=== PATIENT | male | born 1955 | race Caucasian/White ===

== ENCOUNTER 2016-12-25 21:12 | Inpatient (IN) | payer MEDICAID, OTHER ==
[~2016-12-25] VITALS: Ht 165.1 cm; Wt 78.0 kg
--- NOTE | 2016-12-25 22:42 | ERA ---
ER Documentation Chief Complaint Date/Time DATE: 12/25/16 TIME: 22:40 Chief Complaint family states pt not talking, gen body weakness since this am HPI Patient is a 61-year-old diabetic male who presents with sudden onset, constant , severe weakness to the right side of his arm and leg since 1130 this morning. He is also been unable to speak since that time. Prior to the event, he was complaining of numbness in his bilateral legs. There is no report of fever, vomiting, head trauma. The patient does not take blood thinners. ROS All systems reviewed and are negative except as per history of present illness. Medications Home Meds Unable to Obtain Active Prescriptions or Reported Meds Allergies Allergies: Coded Allergies: No Known Drug Allergies (Verified Allergy, Unknown, 12/25/16) PMhx/Soc Past medical history: Diabetes mellitus Past surgical history: None Social history: Denies tobacco or alcohol Medical and Surgical Hx: pt denies Surgical Hx Hx Psychiatric Problems: No Hx Miscellaneous Medical Probl: Yes (DIABETES) Hx Alcohol Use: No Hx Substance Use: No Hx Tobacco Use: No Smoking Status: Never smoker FmHx Family History: No coronary disease, No diabetes Physical Exam Vitals Vital Signs Date Time Temp Pulse Resp B/P Pulse Ox O2 Delivery O2 Flow Rate FiO2 12/26/16 00:39 57 12 139/86 99 Room Air 12/25/16 22:06 60 12 145/95 99 Room Air 12/25/16 21:43 98.4 68 20 144/83 97 Physical Exam Const: Alert, nonverbal Head: Atraumatic Eyes: Normal Conjunctiva, no pallor, no icterus ENT: Normal External Ears, Nose and Mouth. Neck: Full range of motion. No meningismus. Resp: Clear to auscultation bilaterally Cardio: Regular rate and rhythm, no murmurs Abd: Soft, non tender, non distended. Skin: No petechiae or rashes Back: No midline or flank tenderness Ext: No cyanosis, or edema Neur: Awake and alert, productive aphasia, follows commands, 2 out of 5 strength right arm and leg, no facial droop Psych: Unable to assess due to condition. Result Diagram: 12/25/16 2340 12/25/16 2340 Results 24 hrs Laboratory Tests Test 12/25/16 21:42 12/25/16 23:40 Bedside Glucose 150mg/dL White Blood Count 8.310^3/ul Red Blood Count 4.9410^6/ul Hemoglobin 15.7g/dl Hematocrit 45.1% Mean Corpuscular Volume 91.3fl Mean Corpuscular Hemoglobin 31.8pg Mean Corpuscular Hemoglobin Concent 34.8g/dl Red Cell Distribution Width 13.4% Platelet Count 26401^3/UL Mean Platelet Volume 10.4fl Neutrophils % 63.1% Lymphocytes % 30.5% Monocytes % 4.7% Eosinophils % 1.1% Basophils % 0.4% Neutrophils # 5.210^3/ul Lymphocytes # 2.510^3/ul Monocytes # 0.410^3/ul Eosinophils # 0.110^3/ul Basophils # 0.010^3/ul Nucleated Red Blood Cells # 0.010^3/ul Prothrombin Time 13.0Sec Prothrombin Time Ratio 1.0 INR International Normalized Ratio 0.98 Activated Partial Thromboplast Time 24.8Sec Sodium Level 147mmol/L Potassium Level 4.1mmol/L Chloride Level 103mmol/L Carbon Dioxide Level 28mmol/L Anion Gap 20 Blood Urea Nitrogen 15mg/dl Creatinine 0.72mg/dl Glucose Level 147mg/dl Hemoglobin A1c 8.6% Calcium Level 9.9mg/dl Total Bilirubin 0.8mg/dl Direct Bilirubin 0.00mg/dl Indirect Bilirubin 0.8mg/dl Aspartate Amino Transf (AST/SGOT) 32IU/L Alanine Aminotransferase (ALT/SGPT) 52IU/L Alkaline Phosphatase 93IU/L Troponin I < 0.012ng/ml Total Protein 7.8g/dl Albumin 4.2g/dl Globulin 3.60g/dl Albumin/Globulin Ratio 1.16 Current Medications Medications (Trade) Dose Ordered Sig/Margot Route PRN Reason Start Time Stop Time Status Last Admin Dose Admin Aspirin (Aspirin) 162 mg ONCE ONCE PO 12/25/16 23:30 12/25/16 23:31 DC 12/25/16 23:27 Ondansetron HCl (Zofran Inj) 4 mg ER BRIDGE PRN IV NAUSEA AND/OR VOMITING 12/26/16 01:00 12/27/16 00:59 Acetaminophen (Tylenol Tab) 650 mg ER BRIDGE PRN PO MILD PAIN/FEVER 12/26/16 01:00 7/22/17 00:59 Procedures/MDM EKG read by me: Time 2316, rate 58 Rhythm: Sinus bradycardia [place]: Normal Intervals: Normal ST-T waves: no ischemic changes Ectopy: No Q-waves: No Impression: No evidence of ischemia or arrhythmia MDM: Patient is a 61-year-old male who presents with acute onset of aphasia and right-sided arm and leg weakness. The patient presented outside of the window for consideration of TPA. Head CT was negative for intracranial bleed. The patient was more than 12 hours from onset of symptoms at the time initial workup was completed, and so was deemed not to be a potential candidate for intra-vascular treatment. The patient was given aspirin. The patient has history of diabetes. There is no evidence of cardiac arrhythmia. The patient will be admitted to the hospital for further workup of stroke, including vascular imaging and MRI. Departure Diagnosis: Primary Impression: Acute ischemic stroke Additional Impressions: Aphasia Right sided weakness Condition: Stable VANESSA LOOMIS MD Dec 25, 2016 22:42
--- NOTE | 2016-12-25 23:13 | RADRPT ---
PROCEDURE: XR Chest. CLINICAL INDICATION: Chest pain and stroke TECHNIQUE: AP Portable chest. COMPARISON: None available FINDINGS: The soft tissues and bones are remarkable for multiple EKG leads superimposed over chest wall. No f ocal infiltrates, masses or effusions are present. The heart size is borderline. The aorta and med iastinum are normal. A 7.5 mm left lower lobe pulmonary nodule is noted which is superimposed over the left posterior 9th rib and interposed between the left anterior sixth and seventh ribs. Recomme nd chest CT to further evaluate . No pleural effusions or pneumothorax is noted. IMPRESSION: 1. 7.5 mm left lower lobe pulmonary nodule. Recommend chest CT to further evaluate. 2. Borderline cardiomegaly RPTAT: HDC .Jessica Holder MD, Date Time Electronically viewed and signed by .Jessica Holder MD, on 12/25/2016 23:13 .C/
--- NOTE | 2016-12-25 23:17 | RADRPT ---
PROCEDURE: CT Head without. CLINICAL INDICATION: Code stroke. TECHNIQUE: The study was performed utilizing a multi-slice, multidetector CT scanner. Direct spira l 1 mm axial sections were obtained through the head without the use of intravenous contrast materia l. 1 or more of the following dose reduction techniques were utilized: Automated exposure control, adjustment of the mA and/or kV according to patient's size, iterative reconstruction technique. Co trevin and sagittal reformations were obtained. The images were reviewed on a PACS workstation. RADIATION DOSE: CTDIvol: 44.3 mGyDLP: 720.2 mGy-cm COMPARISON: No prior studies are available for comparison. FINDINGS: There is no intracranial hemorrhage, extra-axial fluid collection, mass lesion, midline shift or hyd rocephalus. There is mild prominence of the cerebral sulci, lateral and third ventricles. There is mild to moderate periventricular and subcortical white matter hypodensity, asymmetric to the anteri or left frontal lobe white matter. There is mild arteriosclerotic calcification of the parasellar i nternal carotid arteries. The cardenas-white matter differentiation is preserved. The basal cisterns a re patent. The midline structures are intact. The orbits, calvarium and extracranial soft tissues are normal in appearance. There are mild inflammatory changes of the bilateral ethmoid air cells. T he mastoid air cells and middle ear cavities are normally aerated. IMPRESSION: 1. Asymmetric white matter hypodensity involving the left anterior frontal lobe, as well as the lef t sub insular white matter, which is nonspecific. This may be related to asymmetric chronic microan giopathic changes, however underlying infarct is not excluded. MRI is recommended for further evalu ation. 2. No intracranial hemorrhage, extra-axial fluid collection, mass lesion or hydrocephalous. 3. Mild peripheral and central cerebral volume loss. The above findings were discussed with Patient's physician Ramo Potter by telephone on 12/25/2016 11:14:41 PM. RPTAT: HGAS .Derrick Griffith MD, MD Date Time Electronically viewed and signed by .Derrick Griffith MD, on 12/25/2016 23:17 .S/
[2016-12-25] MEDS ORDERED: ASPIRIN 81 MG TAB PO ONE (23:30)
[2016-12-25 23:57] LABS: ADD SCAN DIFF NO
[2016-12-26] VITALS (11 sets, daily range): BP systolic 134–156; BP diastolic 78–97; PULSE 50–61; RESP 18–21; Ht 165.1 cm; Wt 78.0 kg
[2016-12-26 00:02] LABS: BASOPHILS % 0.4 % (0.0-2.0); EOSINOPHILS # 0.1 10^3/ul (0.0-0.5); EOSINOPHILS % 1.1 % (0.0-7.0); HEMATOCRIT 45.1 % (42.0-52.0); HEMOGLOBIN 15.7 g/dl (14.0-18.0); LYMPHOCYTES # 2.5 10^3/ul (0.8-2.9); LYMPHOCYTES % 30.5 % (15.0-51.0); MEAN CORPUSCULAR HEMOGLOBIN 31.8 pg (29.0-33.0); MEAN CORPUSCULAR HGB CONC 34.8 g/dl (32.0-37.0); MEAN CORPUSCULAR VOLUME 91.3 fl (82.0-101.0); MEAN PLATELET VOLUME 10.4 fl (7.4-10.4); MONOCYTE # 0.4 10^3/ul (0.3-0.9); MONOCYTES % 4.7 % (0.0-11.0); NEUTROPHIL # 5.2 10^3/ul (1.6-7.5); NEUTROPHILS % 63.1 % (39.0-77.0); PLATELET COUNT 251 10^3/UL (140-415); RED BLOOD COUNT 4.94 10^6/ul (4.70-6.10); RED CELL DISTRIBUTION WIDTH 13.4 % (11.5-14.5); WHITE BLOOD COUNT 8.3 10^3/ul (4.8-10.8)
[2016-12-26 00:21] LABS: INR 0.98; PARTIAL THROMBOPLASTIN TIME 24.8 Sec (25.0-35.0)
[2016-12-26 00:30] LABS: ALANINE AMINOTRANSFERASE 52 IU/L (13-69); ALBUMIN 4.2 g/dl (3.3-4.9); ALBUMIN/GLOBULIN RATIO 1.16; ALKALINE PHOSPHATASE 93 IU/L (42-121); ANION GAP 20 (8-16); ASPARTATE AMINO TRANSFERASE 32 IU/L (15-46); BILIRUBIN,INDIRECT 0.8 mg/dl (0-1.1); BILIRUBIN,TOTAL 0.8 mg/dl (0.2-1.3); BLOOD UREA NITROGEN 15 mg/dl (7-20); CALCIUM 9.9 mg/dl (8.4-10.2); CARBON DIOXIDE 28 mmol/L (21-31); CHLORIDE 103 mmol/L (97-110); CREATININE 0.72 mg/dl (0.61-1.24); GLUCOSE 147 mg/dl (70-220); POTASSIUM 4.1 mmol/L (3.5-5.1); SODIUM 147 mmol/L (135-144); TOTAL PROTEIN 7.8 g/dl (6.1-8.1)
[2016-12-26 00:42] LABS: TROPONIN-I < 0.012 ng/ml (0.00-0.12)
[2016-12-26] MEDS ORDERED: ACETAMINOPHEN 325 MG TAB PO PRN (01:00)
[2016-12-26] MEDS ORDERED: ONDANSETRON 4 MG INJ IV PRN ×2 (01:00→03:30)
[2016-12-26] MEDS ORDERED: GLUCOSE GEL 15 GRAM TUBE PO PRN ×2 (06:00)
[2016-12-26] MEDS ORDERED: DEXTROSE 50% 50 ML SYRINGE IV PRN ×2 (06:00)
[2016-12-26] MEDS ORDERED: GLUCAGON 1 MG INJ IM PRN (06:00)
[2016-12-26] MEDS ORDERED: GLUCOSE GEL 15 GRAM TUBE BUCCAL PRN (06:00)
[2016-12-26 06:34] LABS: ADD SCAN DIFF NO
[2016-12-26 06:36] LABS: BASOPHILS % 0.4 % (0.0-2.0); EOSINOPHILS # 0.2 10^3/ul (0.0-0.5); EOSINOPHILS % 2.2 % (0.0-7.0); HEMATOCRIT 44.8 % (42.0-52.0); HEMOGLOBIN 15.4 g/dl (14.0-18.0); LYMPHOCYTES % 36.4 % (15.0-51.0); MEAN CORPUSCULAR HEMOGLOBIN 31.4 pg (29.0-33.0); MEAN CORPUSCULAR HGB CONC 34.4 g/dl (32.0-37.0); MEAN CORPUSCULAR VOLUME 91.4 fl (82.0-101.0); MEAN PLATELET VOLUME 10.3 fl (7.4-10.4); MONOCYTE # 0.5 10^3/ul (0.3-0.9); MONOCYTES % 5.9 % (0.0-11.0); NEUTROPHIL # 4.5 10^3/ul (1.6-7.5); PLATELET COUNT 232 10^3/UL (140-415); RED CELL DISTRIBUTION WIDTH 13.6 % (11.5-14.5); WHITE BLOOD COUNT 8.1 10^3/ul (4.8-10.8)
[2016-12-26 07:07] LABS: ALBUMIN/GLOBULIN RATIO 1.14; BILIRUBIN,INDIRECT 1.2 mg/dl (0-1.1); BILIRUBIN,TOTAL 1.2 mg/dl (0.2-1.3); CALCIUM 9.7 mg/dl (8.4-10.2); CHOL/HDL RATIO 6.2 RATIO; CREATININE 0.7 mg/dl (0.61-1.24); MAGNESIUM 2.1 mg/dl (1.7-2.5); PHOSPHORUS 3.5 mg/dl (2.5-4.9); POTASSIUM 3.9 mmol/L (3.5-5.1); TOTAL PROTEIN 7.5 g/dl (6.1-8.1)
--- NOTE | 2016-12-26 07:22 | HP ---
Date/Time of Note Date/Time of Note DATE: 12/26/16 TIME: 07:12 Assessment/Plan VTE Prophylaxis VTE Prophylaxis Intervention: heparin Lines/Catheters IV [facility] Saline Lock Assessment/Plan Assessment/Plan 1. Acute CVA -Patient is currently completely aphasic with right-sided deficit. Plan is to obtain MRI of the brain as well as MRA of the head and neck. I will also place a neurology consult. - will place him on aspirin, statin as well as subcutaneous heparin for DVT prophylaxis. - will check A1c and fasting lipids in the morning. - will allow permissive hypertension for 24 hours from the symptom onset and will not treat his blood pressure unless greater than 220/120 - Physical therapy and speech/swallow evaluation. 2. Diabetes -We will follow up A1c result. will be placed on insulin while in-house 3. Mild hypernatremia - will check a.m. lab, for now will just monitor HPI/ROS Admit Date/Time Admit Date/Time Dec 26, 2016 at 00:47 Hx of Present Illness This is a 61-year-old male with a history of diabetes who presented to the emergency department for altered mentation, right-sided weakness and inability to speak. Patient is currently completely aphasic and as such information is gathered from chart review and from his who is at the bedside. She stated that her in the morning actually around lunchtime she noticed that patient was not speaking at all. She also noted that he had difficulty walking as well as holding anything on his right hand. She denied history of stroke in the past. When the patient presented to the ER, CT scan of the head shows asymmetric hypodensity involving the left anterior frontal lobe, which could indicate chronic microangiopathic ischemic change versus infarct. Chest x-ray shows 7.5 mm left lower lung pulmonary nodule. Patient was given aspirin while in the ER. . PMH/Family/Social Past Medical History Medical History: diabetes Social History Alcohol Use: occasionally Smoking Status: Never smoker Drug Use: none Exam/Review of Systems Vital Signs Vitals Vital Signs Date Time Temp Pulse Resp B/P Pulse Ox O2 Delivery O2 Flow Rate FiO2 12/26/16 04:16 50 12/26/16 03:50 98.2 18 156/78 95 12/26/16 02:09 Room Air Intake and Output 12/25/16 12/25/16 12/26/16 15:00 23:00 07:00 Intake Total 200 ml Balance 200 ml Exam Constitutional: other (aphasic. no acute distress) Head: atraumatic, normocephalic Respiratory: clear to auscultation, normal air movement Cardiovascular: nl pulses, regular rate and rhythm Gastrointestinal: soft Extremities: normal pulses Neurological: other (right upper and lower ext weakness. decreased sensation on right side of body) Labs Result Diagram: 12/26/16 0613 12/25/16 2340 Medications Medications Current Medications Aspirin (Halfprin) 81 mg DAILY PO ; Start 12/26/16 at 09:00 Atorvastatin Calcium (Lipitor) 20 mg DAILY@21 PO ; Start 12/26/16 at 21:00 Ondansetron HCl (Zofran Inj) 4 mg Q6H PRN IV NAUSEA AND/OR VOMITING; Start at 03:30 Heparin Sodium (Porcine) (Heparin (5000 Units/0.5 ml)) 5,000 unit BID SC ; Start 12/26/16 at 09:00 Insulin Glargine (Lantus) 12 unit DAILY@08 SC ; Start 12/26/16 at 08:00 Diagnostic Test (Pha) (Accu-Chek) 1 ea 02 XX ; Start 12/27/16 at 02:00 Miscellaneous Information 1 ea NOTE XX ; Start 12/26/16 at 06:00 Glucose (Glutose) 15 gm Q15M PRN PO DECREASED GLUCOSE; Start 12/26/16 at 06:00 Glucose (Glutose) 22.5 gm Q15M PRN PO DECREASED GLUCOSE; Start 12/26/16 at 06: 00 Dextrose (D50w Syringe) 25 ml Q15M PRN IV DECREASED GLUCOSE; Start 12/26/16 at 06:00 Dextrose (D50w Syringe) 50 ml Q15M PRN IV DECREASED GLUCOSE; Start 12/26/16 at 06:00 Glucagon (Glucagen) 1 mg Q15M PRN IM DECREASED GLUCOSE; Start 12/26/16 at 06:00 Glucose (Glutose) 15 gm Q15M PRN BUCCAL DECREASED GLUCOSE; Start 12/26/16 at 06 :00 SILVANA JAVIER MD Dec 26, 2016 07:22
[2016-12-26] MEDS: ASPIRIN (EC) 81 MG TAB PO SCH (08:51)
[2016-12-26] MEDS: HEPARIN 5,000 UNIT/0.5 ML VIAL SC SCH ×2 (08:57→21:42)
[2016-12-26] MEDS: INSULIN ASPART [NOVOLOG] 3 ML PEN SC SCH ×4 (08:58→21:00)
[2016-12-26] MEDS: INSULIN GLARGINE [LANtus] 3 ML PEN SC SCH (08:59)
--- NOTE | 2016-12-26 12:46 | RADRPT ---
PROCEDURE: MRA Neck without contrast. CLINICAL INDICATION: Stroke, right-sided weakness, unable to speak, right side paralyzed TECHNIQUE: An MRA of the major cervical arteries was performed on a 3.0 T scanner utilizing axial 3-D [id number] sequence. Source and MIP images were reviewed. COMPARISON: None available FINDINGS: There are patient motion related artifacts somewhat limiting evaluation. No occlusion or hemodynami randi significant stenosis is identified involving the visualized bilateral common carotid arteries, bilateral carotid bulbs - bifurcations and cervical internal carotid arteries, or bilateral cervica l vertebral arteries. Significant stenosis by NASCET criteria identified. No dissection is seen. IMPRESSION: Somewhat limited evaluation due to motion, without cervical arterial occlusion or hemodynamically si gnificant stenosis identified. RPTAT: VV .Netfaly Williamson MD, Date Time Electronically viewed and signed by .Neftaly Williamson MD, on 12/26/2016 12:45 .O/
--- NOTE | 2016-12-26 12:58 | RADRPT ---
PROCEDURE: MRI Brain without contrast. CLINICAL INDICATION: Stroke, right-sided weakness, unable to speak, right side paralyzed TECHNIQUE: Multiplanar MRI of the brain without contrast was performed on a 3.0 T scanner with the following sequences obtained: T1-weighted, T2-weighted/FLAIR, diffusion weighted (with ADC map), GR E. COMPARISON: CT brain 12/25/2016 FINDINGS: There are some patient motion related artifacts. There are areas of restricted diffusion with incre ased T2-weighted FLAIR signal intensity in the parasagittal left frontal lobe - single gyrus and adj acent corpus callosum involving at least the genu compatible with acute/recent infarcts in the left anterior cerebral artery territory. No associated hemorrhage/blood degradation products are identif ied. No extra-axial fluid collection is seen. There is no significant mass effect, or midline shif t. The ventricles and sulci are mildly enlarged, compatible with generalized volume loss. Minimal additional areas of increased T2 / FLAIR signal intensity are present in the periventricular and deep white matter, nonspecific but likely related to chronic small vessel ischemic changes. Sm all chronic lacunar infarct is also identified in the right thalamus. There is absence of the normal flow void in the intracranial left vertebral artery. There is partial bilateral ethmoid air cell opacification and minimal to mild mucosal thickening in the rest of the paranasal sinuses. IMPRESSION: 1. Acute/recent left AUREA territory infarcts. 2. Mild generalized volume loss vessel ischemic changes. 3. Chronic right thalamic lacunar infarct. 4. Absence of normal flow void in the intracranial left vertebral artery. See separate MRA brain r eport for additional details. Results called to Myriam Esquivel RN at 12:53 p.m., 12/26/2016. RPTAT: VV .Neftaly Williamson MD, MD Date Time Electronically viewed and signed by .Neftaly Williamson MD, MD on 12/26/2016 12:57 .O/
--- NOTE | 2016-12-26 13:00 | RADRPT ---
PROCEDURE: MRA brain without contrast CLINICAL INDICATION: Stroke, right-sided weakness, unable to speak, right side paralyzed TECHNIQUE: 3-D [id number] intracranial MRA was performed on a 3.0 T scanner. Rotational MIP im ages were reformatted. The source images were also reviewed. COMPARISON: None available FINDINGS: There are some patient motion related artifacts. The bilateral internal carotid arteries are grossl y patent. The bilateral middle and right anterior cerebral artery are grossly patent. Left anterior cerebral artery is small, grossly patent along the A1 and A2 segment up to the distal A2 segment wh ere appears focally occluded. There are severe stenoses of versus occlusion of the intracranial lef t vertebral artery. The intracranial right vertebral artery is patent. The basilar artery and bila teral vertebral arteries appear patent. No aneurysm or vascular malformation is identified. IMPRESSION: 1. 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 2. 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 Results called to Myriam Esquivel RN at 12:53 p.m., 12/26/2016. RPTAT: VV .Neftaly Williamson MD, Date Time Electronically viewed and signed by .Neftaly Williamson MD, MD on 12/26/2016 13:00 .O/
--- NOTE | 2016-12-26 18:41 | RADRPT ---
Echocardiogram Report Patient Name: PATRIZIA GAN Gender: Male Date: 1955 Study Date: 26-Dec-2016 Videographer: Hamzah [facility] Location: I Ref. Physician: SILVANA JAVIER Quality: Adequate Procedures: Transthoracic echocardiogram with complete 2D, M-Mode, and doppler examination. Indications: Stroke. 2D/M Mode Doppler Measurement Value Normal Ranges Measurement Value Normal Ranges LVIDd 2D 4.6 3.5 - 5.6 cm AV Peak Eusebio 1.7 m/sec LVIDs 2D 3.1 2.1 - 4.1 cm AV Peak PG 11.8 mmHg LVPWd 2D 1.0 0.6 - 1.1 cm LVOT Peak Eusebio 1.2 m/sec IVSd 2D 1.0 0.6 - 1.1 cm LVOT Peak PG 6.0 mmHg AoR Diam 2D 3.0 2.0 - 3.7 cm MV E Peak Eusebio 0.7 m/sec EDV 2D 96.1 cm3 MV A Peak Eusebio 0.8 m/sec ESV 2D 30.2 cm3 MV E/A 0.9 LA Dimen 2D 3.3 2.3 - 4.0 cm MV Decel Time 253 msec MV Decel [place] 3 MV E/A 0.9 Findings Left Ventricle: Normal left ventricular systolic function. Normal left ventricular cavity size. Normal left ventricular wall thickness. Ejection fraction is visually estimated at 60 %. Abnormal Diastolic Function. Right Ventricle: Normal right ventricular size. Normal right ventricular systolic function. Left Atrium: The left atrium is normal in size. Right Atrium: The right atrium is normal in size. Mitral Valve: Mild mitral leaflet calcification. Mild mitral annular calcification. Trace mitral regurgitation. Aortic Valve: Normal appearance of the aortic valve. No significant aortic stenosis or insufficiency. Tricuspid Valve: Normal appearance and function of the tricuspid valve with trace physiologic regurgitation. Pulmonic Valve: Pulmonic valve not well visualized. There is trace pulmonic regurgitation. Pericardium: Normal pericardium with no significant pericardial effusion. Aorta: Normal aortic root. IVC: Normal size and normal respiratory collapse consistent with normal right atrial pressure. Conclusions 1.Normal left ventricular systolic function. Normal left ventricular cavity size. Normal left ventricular wall thickness. Ejection fraction is visually estimated at 60 %. Abnormal Diastolic Function. 2.Normal right ventricular size. Normal right ventricular systolic function. 3.Mild mitral leaflet calcification. Mild mitral annular calcification. Trace mitral regurgitation. 4.Normal appearance and function of the tricuspid valve with trace physiologic regurgitation. 5.Pulmonic valve not well visualized. There is trace pulmonic regurgitation. Electronically Signed By: Saud Hahn 26-Dec-2016 18:40:30 -0700 Patient Name: PATRIZIA GAN Study Date: 26-Dec-2016 [id number]
[2016-12-26] MEDS ORDERED: ATORVASTATIN 20 MG TAB PO SCH ×2 (21:00)
[2016-12-26] MEDS ORDERED: ATORVASTATIN 40 MG TAB PO SCH (21:00)
[2016-12-27] VITALS (13 sets, daily range): BP systolic 122–144; BP diastolic 76–98; PULSE 58–62; RESP 18–21
[2016-12-27] MEDS ORDERED: ACCU-CHEK XX SCH (02:00)
[2016-12-27] MEDS: ACCU-CHEK XX SCH ×2 (02:00→20:57)
[2016-12-27 02:44] LABS: ADD UMIC YES; UR ASCORBIC ACID NEGATIVE (NEGATIVE); UR BILIRUBIN (Dip) NEGATIVE (NEGATIVE); UR BLOOD (Dip) 1+ mg/dL (NEGATIVE); UR CLARITY CLEAR (CLEAR); UR COLOR YELLOW (YELLOW); UR GLUCOSE (Dip) NEGATIVE (NEGATIVE); UR KETONES (Dip) NEGATIVE (NEGATIVE); UR LEUKOCYTE ESTERASE (Dip) TRACE Leu/ul (NEGATIVE); UR MUCUS FEW /HPF (NONE SEEN); UR NITRITE (Dip) NEGATIVE (NEGATIVE); UR RBC 22 /HPF (0-5); UR SPECIFIC GRAVITY (Dip) 1.025 (1.003-1.030); UR TOTAL PROTEIN (Dip) NEGATIVE (NEGATIVE); UR URIC ACID CRYSTAL FEW /HPF (NONE SEEN); UR UROBILINOGEN (Dip) NEGATIVE (NEGATIVE)
[2016-12-27 02:57] LABS: BARBITURATES Negative (NEGATIVE); BENZODIAZEPINES Negative (NEGATIVE); CANNABINOIDS Negative (NEGATIVE); COCAINE Negative (NEGATIVE); OPIATES Negative (NEGATIVE)
[2016-12-27] MEDS: MAGNESIUM HYDROXIDE 30ML CUP PO PRN (06:56)
[2016-12-27] MEDS: INSULIN ASPART [NOVOLOG] 3 ML PEN SC SCH ×4 (08:21→20:56)
[2016-12-27] MEDS: INSULIN GLARGINE [LANtus] 3 ML PEN SC SCH (08:21)
[2016-12-27] MEDS: ASPIRIN (EC) 81 MG TAB PO SCH (09:28)
[2016-12-27] MEDS: HEPARIN 5,000 UNIT/0.5 ML VIAL SC SCH ×2 (10:00→20:54)
--- NOTE | 2016-12-27 13:55 | PN ---
Date/Time of Note Date/Time of Note DATE: 12/27/16 TIME: 13:50 Assessment/Plan VTE Prophylaxis VTE Prophylaxis Intervention: heparin Lines/Catheters IV Catheter Type (from Nrs): Saline Lock Urinary Cath still in place: Yes Reason Cath still needed: other (indicate) (montior I&O) Assessment/Plan Chief Complaint/Hosp Course Assessment and plan 1. Acute CVA. Patient with MRI of the brain showing acute recent left anterior cerebral artery territory infarcts. Additionally MRI of the brain also showed occluded left anterior cerebral artery and severe stenosis versus occlusion of the intracranial left vertebral artery. Neurologist to follow. Continue with PT/OT/ST 2. Diabetes. A1c at 8.3. Continue insulin regimen. Will adjust as needed. 3. Debility secondary to #1.. Continue with physical therapy. We will see for possible rehab unit once ready for discharge Disposition and plan: Continue with PT/OT/ST as well as statin medication and antiplatelet therapy. Neurologist to follow. Will follow up with recommendations. Discussed plan of care with Dr. Maradiaga Problems: Subjective 24 Hr Interval Summary Free Text/Dictation noted to be aphasic with right sided weakness Exam/Review of Systems Vital Signs Vitals Vital Signs Date Time Temp Pulse Resp B/P Pulse Ox O2 Delivery O2 Flow Rate FiO2 12/27/16 12:21 60 12/27/16 11:06 97.4 18 122/76 97 12/26/16 02:09 Room Air Intake and Output 12/26/16 12/26/16 12/27/16 14:59 22:59 06:59 Intake Total 750 ml 800 ml Output Total 850 ml 1200 ml Balance -100 ml -400 ml Exam Constitutional: alert, non-verbal, oriented Psych: nl mood/affect Head: normocephalic Respiratory: normal air movement Cardiovascular: regular rate and rhythm Gastrointestinal: non-tender, soft Musculoskeletal: muscle weakness (right sided), No nl gait and stance Neurological: No [employer] II-XII intact, No nl speech Results Result Diagram: 12/26/1661212/26/1613 Results 24 hrs Laboratory Tests Test 12/26/16 17:08 12/26/16 17:30 12/26/16 21:28 12/27/16 00:36 Bedside Glucose 127 153 Troponin I < 0.012 < 0.012 Thyroid Stimulating Hormone (TSH) 3.000 Test 12/27/16 02:00 12/27/16 08:11 12/27/16 11:40 Urine Color YELLOW Urine Clarity CLEAR Urine pH 6.0 Urine Specific [place] 1.025 Urine Ketones NEGATIVE Urine Nitrite NEGATIVE Urine Bilirubin NEGATIVE Urine Urobilinogen NEGATIVE Urine Leukocyte Esterase TRACE A Urine Microscopic RBC 22 H Urine Microscopic WBC 5 Urine Uric Acid Crystals FEW A Urine Mucus FEW A Urine Hemoglobin 1+ H Urine Glucose NEGATIVE Urine Total Protein NEGATIVE Urine Opiates Screen Negative Urine Barbiturates Negative Urine Amphetamines Screen Negative Urine Benzodiazepines Screen Negative Urine Cocaine Screen Negative Urine Cannabinoids Negative Bedside Glucose 141 179 Medications Medications Current Medications Aspirin (Halfprin) 81 mg DAILY PO Last administered on 12/27/16 09:28; Admin Dose 81 MG; Start 12/26/16 at 09:00 Ondansetron HCl (Zofran Inj) 4 mg Q6H PRN IV NAUSEA AND/OR VOMITING; Start at 03:30 Heparin Sodium (Porcine) (Heparin (5000 Units/0.5 ml)) 5,000 unit BID SC Last administered on 12/27/16 10:00; Admin Dose 5,000 UNIT; Start 12/26/16 at 09:00 Insulin Glargine (Lantus) 12 unit DAILY@08 SC Last administered on 12/27/16 08 :21; Admin Dose 12 UNIT; Start 12/26/16 at 08:00 Diagnostic Test (Pha) (Accu-Chek) 1 ea 02 XX ; Start 12/27/16 at 02:00 Miscellaneous Information 1 ea NOTE XX ; Start 12/26/16 at 06:00 Glucose (Glutose) 15 gm Q15M PRN PO DECREASED GLUCOSE; Start 12/26/16 at 06:00 Glucose (Glutose) 22.5 gm Q15M PRN PO DECREASED GLUCOSE; Start 12/26/16 at 06: 00 Dextrose (D50w Syringe) 25 ml Q15M PRN IV DECREASED GLUCOSE; Start 12/26/16 at 06:00 Dextrose (D50w Syringe) 50 ml Q15M PRN IV DECREASED GLUCOSE; Start 12/26/16 at 06:00 Glucagon (Glucagen) 1 mg Q15M PRN IM DECREASED GLUCOSE; Start 12/26/16 at 06:00 Glucose (Glutose) 15 gm Q15M PRN BUCCAL DECREASED GLUCOSE; Start 12/26/16 at 06 :00 Atorvastatin Calcium (Lipitor) 40 mg DAILY@21 PO Last administered on 21:30; Admin Dose 40 MG; Start 12/26/16 at 21:00 Magnesium Hydroxide (Milk Of Mag) 30 ml BID PRN PO CONSTIPATION Last administered on 12/27/16 06:56; Admin Dose 30 ML; Start 12/27/16 at 07:00 PEDRO GONZALEZ Dec 27, 2016 13:55
--- NOTE | 2016-12-27 17:13 | CONS ---
Date/Time of Note Date/Time of Note DATE: 12/27/16 TIME: 17:03 Assessment/Plan Assessment/Plan Chief Complaint/Hosp Course 61 year old male with history of uncontrolled DM admitted with Left AUREA stroke, Left A2 occlusion and left vertebral artery occlusion. Etiology possibly intracranial atherosclerosis, would also rule out possibility of cardioembolism Recommendations: Continue aspirin, likely will add Plavix 75 mg treatment for intracranial atherosclerosis is dual antiplatelet for 90 days followed by Plavix 75 mg daily maintain BP< 140/90 Lipitor 80 mg qhs indicated for LDL >100 suggest LORENA to evaluate for potential cardiac thrombus, can be done Thursday optimize diabetes, adjust insulin dosing accordingly goal HBA1C< 7.0% suggest CT Chest w contrast to evaluate pulmonary nodule, r/o malignancy PT/OT/Speech therapies DVT ppx will follow Problems: Consultation Date/Type/Reason Admit Date/Time Dec 26, 2016 at 00:47 Date of Consultation: Dec 26, 2016 Type of Consultation: Neurology Reason for Consultation Left AUREA CVA with left AUREA occlusion and left vertebral occlusion Referring Provider: NAMAN THOMPSON NP Hx of Present Illness 61 year old male works at a [employer] only past medical history of uncontrolled diabetes presented with right sided weakness progressing to aphasia that began on morning at 11:30. Per history obtained from family he initially complained of numbness sensation in legs and symptoms gradually progressed throughout the day, he was evaluated much later in the evening around 8 pm and on admission to the ER was out of window for thrombolytic therapy. CTH showed left frontal hypodensity. Initial work up also showed pulmonary nodule 7.5 mm left lower lobe on CXR. 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 ECHO: normal LV function, 60% LDL: 168 HBA1C: 8.6% Subjective hx not possible: pt non-verbal Psychological: nl mood/affect Past Medical History Medical History: diabetes Social History Alcohol Use: occasionally Smoking Status: Never smoker Drug Use: none Exam/Review of Systems Vital Signs Vitals Vital Signs Date Time Temp Pulse Resp B/P Pulse Ox O2 Delivery O2 Flow Rate FiO2 12/27/16 16:14 59 12/27/16 15:37 98.5 135/80 93 12/27/16 11:06 18 12/26/16 02:09 Room Air Intake and Output 12/26/16 12/26/16 12/27/16 15:00 23:00 07:00 Intake Total 750 ml 800 ml Output Total 850 ml 1200 ml Balance -100 ml -400 ml Exam awake and alert gazes at examiner in both directions tracks to voice non-verbal severe verbal apraxia and expressive aphasia 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 infarction CN: ALEXIA, blinks to threat bilaterally, right facial weakness Motor: left arm and leg 5/5 right arm flaccid and right leg flaccid no withdrawal Results Result Diagram: 12/26/1613 12/26/16 0613 Results 24 hrs Laboratory Tests Test 12/26/16 17:08 12/26/16 17:30 12/26/16 21:28 12/27/16 00:36 Bedside Glucose 127 153 Troponin I < 0.012 < 0.012 Thyroid Stimulating Hormone (TSH) 3.000 Test 12/27/16 02:00 12/27/16 08:11 12/27/16 11:40 Urine Color YELLOW Urine Clarity CLEAR Urine pH 6.0 Urine Specific [place] 1.025 Urine Ketones NEGATIVE Urine Nitrite NEGATIVE Urine Bilirubin NEGATIVE Urine Urobilinogen NEGATIVE Urine Leukocyte Esterase TRACE A Urine Microscopic RBC 22 H Urine Microscopic WBC 5 Urine Uric Acid Crystals FEW A Urine Mucus FEW A Urine Hemoglobin 1+ H Urine Glucose NEGATIVE Urine Total Protein NEGATIVE Urine Opiates Screen Negative Urine Barbiturates Negative Urine Amphetamines Screen Negative Urine Benzodiazepines Screen Negative Urine Cocaine Screen Negative Urine Cannabinoids Negative Bedside Glucose 141 179 Medications Medications Current Medications Aspirin (Halfprin) 81 mg DAILY PO Last administered on 12/27/16 09:28; Admin Dose 81 MG; Start 12/26/16 at 09:00 Ondansetron HCl (Zofran Inj) 4 mg Q6H PRN IV NAUSEA AND/OR VOMITING; Start at 03:30 Heparin Sodium (Porcine) (Heparin (5000 Units/0.5 ml)) 5,000 unit BID SC Last administered on 12/27/16 10:00; Admin Dose 5,000 UNIT; Start 12/26/16 at 09:00 Insulin Glargine (Lantus) 12 unit DAILY@08 SC Last administered on 12/27/16 08 :21; Admin Dose 12 UNIT; Start 12/26/16 at 08:00 Diagnostic Test (Pha) (Accu-Chek) 1 ea 02 XX ; Start 12/27/16 at 02:00 Miscellaneous Information 1 ea NOTE XX ; Start 12/26/16 at 06:00 Glucose (Glutose) 15 gm Q15M PRN PO DECREASED GLUCOSE; Start 12/26/16 at 06:00 Glucose (Glutose) 22.5 gm Q15M PRN PO DECREASED GLUCOSE; Start 12/26/16 at 06: 00 Dextrose (D50w Syringe) 25 ml Q15M PRN IV DECREASED GLUCOSE; Start 12/26/16 at 06:00 Dextrose (D50w Syringe) 50 ml Q15M PRN IV DECREASED GLUCOSE; Start 12/26/16 at 06:00 Glucagon (Glucagen) 1 mg Q15M PRN IM DECREASED GLUCOSE; Start 12/26/16 at 06:00 Glucose (Glutose) 15 gm Q15M PRN BUCCAL DECREASED GLUCOSE; Start 12/26/16 at 06 :00 Atorvastatin Calcium (Lipitor) 40 mg DAILY@21 PO Last administered on 21:30; Admin Dose 40 MG; Start 12/26/16 at 21:00 Magnesium Hydroxide (Milk Of Mag) 30 ml BID PRN PO CONSTIPATION Last administered on 12/27/16 06:56; Admin Dose 30 ML; Start 12/27/16 at 07:00 JESUS AVERY MD Dec 27, 2016 17:13
--- NOTE | 2016-12-27 17:47 | CONS ---
Date/Time of Note Date/Time of Note DATE: 12/27/16 TIME: 17:44 Assessment/Plan Assessment/Plan Additional Assessment/Plan Hypertension TIA Diabetes BP stable Continue Plavix and ASA Continue Lipitor Continue GI and DVT Prophylaxis Consultation Date/Type/Reason Admit Date/Time Dec 26, 2016 at 00:47 Psychological: nl mood/affect Past Medical History Medical History: diabetes Social History Alcohol Use: occasionally Smoking Status: Never smoker Drug Use: none Exam/Review of Systems Vital Signs Vitals Vital Signs Date Time Temp Pulse Resp B/P Pulse Ox O2 Delivery O2 Flow Rate FiO2 12/27/16 16:14 59 12/27/16 15:37 98.5 135/80 93 12/27/16 11:06 18 12/26/16 02:09 Room Air Intake and Output 12/26/16 12/26/16 12/27/16 15:00 23:00 07:00 Intake Total 750 ml 800 ml Output Total 850 ml 1200 ml Balance -100 ml -400 ml Exam Constitutional: alert, oriented Head: atraumatic, normocephalic Respiratory: clear to auscultation Cardiovascular: regular rate and rhythm Gastrointestinal: nl liver, spleen, non-tender, soft Extremities: normal pulses Results Result Diagram: 12/26/16 0613 12/26/16 0613 Results 24 hrs Laboratory Tests Test 12/26/16 21:28 12/27/16 00:36 12/27/16 02:00 12/27/16 08:11 Bedside Glucose 153 141 Troponin I < 0.012 Urine Color YELLOW Urine Clarity CLEAR Urine pH 6.0 Urine Specific [place] 1.025 Urine Ketones NEGATIVE Urine Nitrite NEGATIVE Urine Bilirubin NEGATIVE Urine Urobilinogen NEGATIVE Urine Leukocyte Esterase TRACE A Urine Microscopic RBC 22 H Urine Microscopic WBC 5 Urine Uric Acid Crystals FEW A Urine Mucus FEW A Urine Hemoglobin 1+ H Urine Glucose NEGATIVE Urine Total Protein NEGATIVE Urine Opiates Screen Negative Urine Barbiturates Negative Urine Amphetamines Screen Negative Urine Benzodiazepines Screen Negative Urine Cocaine Screen Negative Urine Cannabinoids Negative Test 12/27/16 11:40 12/27/16 17:34 Bedside Glucose 179 117 Medications Medications Current Medications Aspirin (Halfprin) 81 mg DAILY PO Last administered on 12/27/16t 09:28; Admin Dose 81 MG; Start 12/26/16 at 09:00 Ondansetron HCl (Zofran Inj) 4 mg Q6H PRN IV NAUSEA AND/OR VOMITING; Start at 03:30 Heparin Sodium (Porcine) (Heparin (5000 Units/0.5 ml)) 5,000 unit BID SC Last administered on 12/27/16 10:00; Admin Dose 5,000 UNIT; Start 12/26/16 at 09:00 Insulin Glargine (Lantus) 12 unit DAILY@08 SC Last administered on 12/27/16 08 :21; Admin Dose 12 UNIT; Start 12/26/16 at 08:00 Diagnostic Test (Pha) (Accu-Chek) 1 ea 02 XX ; Start 12/27/16 at 02:00 Miscellaneous Information 1 ea NOTE XX ; Start 12/26/16 at 06:00 Glucose (Glutose) 15 gm Q15M PRN PO DECREASED GLUCOSE; Start 12/26/16 at 06:00 Glucose (Glutose) 22.5 gm Q15M PRN PO DECREASED GLUCOSE; Start 12/26/16 at 06: 00 Dextrose (D50w Syringe) 25 ml Q15M PRN IV DECREASED GLUCOSE; Start 12/26/16 at 06:00 Dextrose (D50w Syringe) 50 ml Q15M PRN IV DECREASED GLUCOSE; Start 12/26/16 at 06:00 Glucagon (Glucagen) 1 mg Q15M PRN IM DECREASED GLUCOSE; Start 12/26/16 at 06:00 Glucose (Glutose) 15 gm Q15M PRN BUCCAL DECREASED GLUCOSE; Start 12/26/16 at 06 :00 Magnesium Hydroxide (Milk Of Mag) 30 ml BID PRN PO CONSTIPATION Last administered on 12/27/16 06:56; Admin Dose 30 ML; Start 12/27/16 at 07:00 Atorvastatin Calcium (Lipitor) 80 mg DAILY@21 PO ; Start 12/27/16 at 21:00 Clopidogrel Bisulfate (plaVIX) 75 mg DAILY PO ; Start 12/27/16 at 17:30 EAMON SEQUEIRA M.D. Dec 27, 2016 17:47
[2016-12-27] MEDS: CLOPIDOGREL 75 MG TAB PO SCH (18:07)
[2016-12-27] MEDS: ATORVASTATIN 80 MG TAB PO SCH (20:45)
[2016-12-28] VITALS (12 sets, daily range): BP systolic 110–135; BP diastolic 69–77; PULSE 57–69; RESP 18–19
[2016-12-28] MEDS: INSULIN ASPART [NOVOLOG] 3 ML PEN SC SCH ×4 (07:55→21:00)
[2016-12-28] MEDS: INSULIN GLARGINE [LANtus] 3 ML PEN SC SCH (08:16)
[2016-12-28] MEDS: CLOPIDOGREL 75 MG TAB PO SCH (09:22)
[2016-12-28] MEDS: ASPIRIN (EC) 81 MG TAB PO SCH (09:22)
[2016-12-28] MEDS: HEPARIN 5,000 UNIT/0.5 ML VIAL SC SCH ×2 (09:47→21:47)
[2016-12-28 12:26] LABS: BASOPHILS % 0.3 % (0.0-2.0); EOSINOPHILS # 0.1 10^3/ul (0.0-0.5); EOSINOPHILS % 1.5 % (0.0-7.0); HEMATOCRIT 47.6 % (42.0-52.0); HEMOGLOBIN 16.8 g/dl (14.0-18.0); LYMPHOCYTES # 2.5 10^3/ul (0.8-2.9); LYMPHOCYTES % 32.1 % (15.0-51.0); MEAN CORPUSCULAR HEMOGLOBIN 31.8 pg (29.0-33.0); MEAN CORPUSCULAR HGB CONC 35.3 g/dl (32.0-37.0); MEAN CORPUSCULAR VOLUME 90.2 fl (82.0-101.0); MEAN PLATELET VOLUME 10.2 fl (7.4-10.4); MONOCYTE # 0.5 10^3/ul (0.3-0.9); MONOCYTES % 5.9 % (0.0-11.0); NEUTROPHIL # 4.7 10^3/ul (1.6-7.5); NEUTROPHILS % 59.9 % (39.0-77.0); PLATELET COUNT 226 10^3/UL (140-415); RED BLOOD COUNT 5.28 10^6/ul (4.70-6.10); RED CELL DISTRIBUTION WIDTH 13.2 % (11.5-14.5); WHITE BLOOD COUNT 7.8 10^3/ul (4.8-10.8)
[2016-12-28 12:49] LABS: CALCIUM 9.4 mg/dl (8.4-10.2); CREATININE 0.68 mg/dl (0.61-1.24); POTASSIUM 4.4 mmol/L (3.5-5.1)
--- NOTE | 2016-12-28 14:16 | PN ---
Date/Time of Note Date/Time of Note DATE: 12/28/16 TIME: 14:13 Assessment/Plan VTE Prophylaxis VTE Prophylaxis Intervention: heparin Lines/Catheters IV Catheter Type (from [facility]): Saline Lock Urinary Cath still in place: Yes Reason Cath still needed: other (indicate) (montior I&O) Assessment/Plan Chief Complaint/Hosp Course Assessment and plan 1. Acute CVA. Patient with MRI of the brain showing acute recent left anterior cerebral artery territory infarcts. Additionally MRI of the brain also showed occluded left anterior cerebral artery and severe stenosis versus occlusion of the intracranial left vertebral artery. Neurologist to follow. Continue with PT/OT/ST 2. Diabetes. A1c at 8.3. Continue insulin regimen. Will adjust as needed. 3. Debility secondary to #1.. Continue with physical therapy. We will see for possible rehab unit once ready for discharge 4. Pulmonary nodule. CT scan of the chest pending Disposition and plan: Continue with PT/OT/ST as well as statin medication and antiplatelet therapy. Tentative plan for LORENA. Will follow up. Discussed plan of care with Dr. Maradiaga Problems: Subjective 24 Hr Interval Summary Free Text/Dictation Resting at this time. Still seen with expressive aphasia. No signs or symptoms of distress Exam/Review of Systems Vital Signs Vitals Vital Signs Date Time Temp Pulse Resp B/P Pulse Ox O2 Delivery O2 Flow Rate FiO2 12/28/16 12:03 57 12/28/16 11:16 98.6 115/69 93 12/28/16 07:13 18 12/26/16 02:09 Room Air Intake and Output 12/27/16 12/27/16 12/28/16 15:00 23:00 07:00 Intake Total 850 ml 250 ml Output Total 500 ml 800 ml Balance 350 ml -550 ml Exam Constitutional: alert, non-verbal Head: normocephalic Respiratory: clear to auscultation, normal air movement Cardiovascular: regular rate and rhythm Gastrointestinal: non-tender, soft Neurological: other (With expressive aphasia and right-sided weakness), No [employer] II-XII intact, No nl mental status, No nl speech Results Result Diagram: 12/28/16 1212 12/28/16 1212 Results 24 hrs Laboratory Tests Test 12/27/16 17:34 12/27/16 20:47 12/28/16 08:11 12/28/16 12:12 Bedside Glucose 117 108 134 White Blood Count 7.8 Red Blood Count 5.28 Hemoglobin 16.8 Hematocrit 47.6 Mean Corpuscular Volume 90.2 Mean Corpuscular Hemoglobin 31.8 Mean Corpuscular Hemoglobin Concent 35.3 Red Cell Distribution Width 13.2 Platelet Count 226 Mean Platelet Volume 10.2 Neutrophils % 59.9 Lymphocytes % 32.1 Monocytes % 5.9 Eosinophils % 1.5 Basophils % 0.3 Nucleated Red Blood Cells % 0.0 Neutrophils # 4.7 Lymphocytes # 2.5 Monocytes # 0.5 Eosinophils # 0.1 Basophils # 0.0 Nucleated Red Blood Cells # 0.0 Sodium Level 140 Potassium Level 4.4 Chloride Level 102 Carbon Dioxide Level 22 Anion Gap 20 H Blood Urea Nitrogen 15 Creatinine 0.68 Glucose Level 122 Calcium Level 9.4 Test 12/28/16 12:28 Bedside Glucose 123 Medications Medications Current Medications Aspirin (Halfprin) 81 mg DAILY PO Last administered on 12/28/16 09:22; Admin Dose 81 MG; Start 12/26/16 at 09:00 Ondansetron HCl (Zofran Inj) 4 mg Q6H PRN IV NAUSEA AND/OR VOMITING; Start at 03:30 Heparin Sodium (Porcine) (Heparin (5000 Units/0.5 ml)) 5,000 unit BID SC Last administered on 12/28/16 09:47; Admin Dose 5,000 UNIT; Start 12/26/16 at 09:00 Insulin Glargine (Lantus) 12 unit DAILY@08 SC Last administered on 12/28/16 08 :16; Admin Dose 12 UNIT; Start 12/26/16 at 08:00 Diagnostic Test (Pha) (Accu-Chek) 1 ea 02 XX ; Start 12/27/16 at 02:00 Miscellaneous Information 1 ea NOTE XX ; Start 12/26/16 at 06:00 Glucose (Glutose) 15 gm Q15M PRN PO DECREASED GLUCOSE; Start 12/26/16 at 06:00 Glucose (Glutose) 22.5 gm Q15M PRN PO DECREASED GLUCOSE; Start 12/26/16 at 06: 00 Dextrose (D50w Syringe) 25 ml Q15M PRN IV DECREASED GLUCOSE; Start 12/26/16 at 06:00 Dextrose (D50w Syringe) 50 ml Q15M PRN IV DECREASED GLUCOSE; Start 12/26/16 at 06:00 Glucagon (Glucagen) 1 mg Q15M PRN IM DECREASED GLUCOSE; Start 12/26/16 at 06:00 Glucose (Glutose) 15 gm Q15M PRN BUCCAL DECREASED GLUCOSE; Start 12/26/16 at 06 :00 Magnesium Hydroxide (Milk Of Mag) 30 ml BID PRN PO CONSTIPATION Last administered on 12/27/16 06:56; Admin Dose 30 ML; Start 12/27/16 at 07:00 Atorvastatin Calcium (Lipitor) 80 mg DAILY@21 PO Last administered on 20:45; Admin Dose 80 MG; Start 12/27/16 at 21:00 Clopidogrel Bisulfate (plaVIX) 75 mg DAILY PO Last administered on 12/28/16 09 :22; Admin Dose 75 MG; Start 12/27/16 at 17:30 PEDRO GONZALEZ Dec 28, 2016 14:16
--- NOTE | 2016-12-28 15:24 | CONS ---
Date/Time of Note Date/Time of Note DATE: 12/28/16 TIME: 15:24 Assessment/Plan Assessment/Plan Additional Assessment/Plan Hypertension TIA Diabetes BP stable Continue Plavix and ASA Continue Lipitor \Continue Insulin Continue GI and DVT Prophylaxis Consultation Date/Type/Reason Admit Date/Time Dec 26, 2016 at 00:47 Initial Consult Date 12/26/16 Type of Consultation: Neurology Referring Provider: NAMAN THOMPSON NP Exam/Review of Systems Vital Signs Vitals Vital Signs Date Time Temp Pulse Resp B/P Pulse Ox O2 Delivery O2 Flow Rate FiO2 12/28/16 12:03 57 12/28/16 11:16 98.6 115/69 93 12/28/16 07:13 18 12/26/16 02:09 Room Air Intake and Output 12/27/16 12/27/16 12/28/16 15:00 23:00 07:00 Intake Total 850 ml 250 ml Output Total 500 ml 800 ml Balance 350 ml -550 ml Exam Constitutional: alert Neck: non-tender, supple Respiratory: clear to auscultation Cardiovascular: regular rate and rhythm Gastrointestinal: nl liver, spleen, soft Extremities: normal pulses Results Result Diagram: 12/28/16 1212 12/28/16 1212 Results 24 hrs Laboratory Tests Test 12/27/16 17:34 12/27/16 20:47 12/28/16 08:11 12/28/16 12:12 Bedside Glucose 117 108 134 White Blood Count 7.8 Red Blood Count 5.28 Hemoglobin 16.8 Hematocrit 47.6 Mean Corpuscular Volume 90.2 Mean Corpuscular Hemoglobin 31.8 Mean Corpuscular Hemoglobin Concent 35.3 Red Cell Distribution Width 13.2 Platelet Count 226 Mean Platelet Volume 10.2 Neutrophils % 59.9 Lymphocytes % 32.1 Monocytes % 5.9 Eosinophils % 1.5 Basophils % 0.3 Nucleated Red Blood Cells % 0.0 Neutrophils # 4.7 Lymphocytes # 2.5 Monocytes # 0.5 Eosinophils # 0.1 Basophils # 0.0 Nucleated Red Blood Cells # 0.0 Sodium Level 140 Potassium Level 4.4 Chloride Level 102 Carbon Dioxide Level 22 Anion Gap 20 H Blood Urea Nitrogen 15 Creatinine 0.68 Glucose Level 122 Calcium Level 9.4 Test 12/28/16 12:28 Bedside Glucose 123 Medications Medications Current Medications Aspirin (Halfprin) 81 mg DAILY PO Last administered on 12/28/16 09:22; Admin Dose 81 MG; Start 12/26/16 at 09:00 Ondansetron HCl (Zofran Inj) 4 mg Q6H PRN IV NAUSEA AND/OR VOMITING; Start at 03:30 Heparin Sodium (Porcine) (Heparin (5000 Units/0.5 ml)) 5,000 unit BID SC Last administered on 12/28/16 09:47; Admin Dose 5,000 UNIT; Start 12/26/16 at 09:00 Insulin Glargine (Lantus) 12 unit DAILY@08 SC Last administered on 12/28/16 08 :16; Admin Dose 12 UNIT; Start 12/26/16 at 08:00 Diagnostic Test (Pha) (Accu-Chek) 1 ea 02 XX ; Start 12/27/16 at 02:00 Miscellaneous Information 1 ea NOTE XX ; Start 12/26/16 at 06:00 Glucose (Glutose) 15 gm Q15M PRN PO DECREASED GLUCOSE; Start 12/26/16 at 06:00 Glucose (Glutose) 22.5 gm Q15M PRN PO DECREASED GLUCOSE; Start 12/26/16 at 06: 00 Dextrose (D50w Syringe) 25 ml Q15M PRN IV DECREASED GLUCOSE; Start 12/26/16 at 06:00 Dextrose (D50w Syringe) 50 ml Q15M PRN IV DECREASED GLUCOSE; Start 12/26/16 at 06:00 Glucagon (Glucagen) 1 mg Q15M PRN IM DECREASED GLUCOSE; Start 12/26/16 at 06:00 Glucose (Glutose) 15 gm Q15M PRN BUCCAL DECREASED GLUCOSE; Start 12/26/16 at 06 :00 Magnesium Hydroxide (Milk Of Mag) 30 ml BID PRN PO CONSTIPATION Last administered on 12/27/16 06:56; Admin Dose 30 ML; Start 12/27/16 at 07:00 Atorvastatin Calcium (Lipitor) 80 mg DAILY@21 PO Last administered on 20:45; Admin Dose 80 MG; Start 12/27/16 at 21:00 Clopidogrel Bisulfate (plaVIX) 75 mg DAILY PO Last administered on 12/28/16 09 :22; Admin Dose 75 MG; Start 12/27/16 at 17:30 EAMON SEQUEIRA M.D. Dec 28, 2016 15:24
[2016-12-28] MEDS ORDERED: SOD CHLORIDE 0.9% 100 ML ONE (17:14)
[2016-12-28] MEDS ORDERED: IODIXANOL LOCM 100 ML BTL ONE (17:14)
--- NOTE | 2016-12-28 17:43 | CONS ---
Date/Time of Note Date/Time of Note DATE: 12/28/16 TIME: 17:41 Consult Date/Type/Reason Admit Date/Time Dec 26, 2016 at 00:47 Initial Consult Date 12/26/16 Type of Consultation: Neurology Reason for Consultation Left AUREA infarct, Left A2 and Left vert occlusion Ordering Provider: NAMAN THOMPSON NP Subjective remains inattentive non-verbal neurologically stable plan for LORENA Objective Vital Signs Date Time Temp Pulse Resp B/P Pulse Ox O2 Delivery O2 Flow Rate FiO2 12/28/16 17:39 59 12/28/16 15:40 98.4 18 119/77 95 12/26/16 02:09 Room Air Intake and Output 12/27/16 12/27/16 12/28/16 15:00 23:00 07:00 Intake Total 850 ml 250 ml Output Total 500 ml 800 ml Balance 350 ml -550 ml Exam awake and alert gazes at examiner in both directions tracks to voice non-verbal severe verbal apraxia and expressive aphasia 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 infarction CN: ALEXIA, blinks to threat bilaterally, right facial weakness Motor: left arm and leg 5/5 right arm flaccid and right leg flaccid no withdrawal Results/Medications Result Diagram: 12/28/16 1212 12/28/16 1212 Results 24 hrs Laboratory Tests Test 12/27/16 20:47 12/28/16 08:11 12/28/16 12:12 12/28/16 12:28 Bedside Glucose 108 134 123 White Blood Count 7.8 Red Blood Count 5.28 Hemoglobin 16.8 Hematocrit 47.6 Mean Corpuscular Volume 90.2 Mean Corpuscular Hemoglobin 31.8 Mean Corpuscular Hemoglobin Concent 35.3 Red Cell Distribution Width 13.2 Platelet Count 226 Mean Platelet Volume 10.2 Neutrophils % 59.9 Lymphocytes % 32.1 Monocytes % 5.9 Eosinophils % 1.5 Basophils % 0.3 Nucleated Red Blood Cells % 0.0 Neutrophils # 4.7 Lymphocytes # 2.5 Monocytes # 0.5 Eosinophils # 0.1 Basophils # 0.0 Nucleated Red Blood Cells # 0.0 Sodium Level 140 Potassium Level 4.4 Chloride Level 102 Carbon Dioxide Level 22 Anion Gap 20 H Blood Urea Nitrogen 15 Creatinine 0.68 Glucose Level 122 Calcium Level 9.4 Medications Current Medications Aspirin (Halfprin) 81 mg DAILY PO Last administered on 12/28/16 09:22; Admin Dose 81 MG; Start 12/26/16 at 09:00 Ondansetron HCl (Zofran Inj) 4 mg Q6H PRN IV NAUSEA AND/OR VOMITING; Start at 03:30 Heparin Sodium (Porcine) (Heparin (5000 Units/0.5 ml)) 5,000 unit BID SC Last administered on 12/28/16 09:47; Admin Dose 5,000 UNIT; Start 12/26/16 at 09:00 Insulin Glargine (Lantus) 12 unit DAILY@08 SC Last administered on 12/28/16 08 :16; Admin Dose 12 UNIT; Start 12/26/16 at 08:00 Diagnostic Test (Pha) (Accu-Chek) 1 ea 02 XX ; Start 12/27/16 at 02:00 Miscellaneous Information 1 ea NOTE XX ; Start 12/26/16 at 06:00 Glucose (Glutose) 15 gm Q15M PRN PO DECREASED GLUCOSE; Start 12/26/16 at 06:00 Glucose (Glutose) 22.5 gm Q15M PRN PO DECREASED GLUCOSE; Start 12/26/16 at 06: 00 Dextrose (D50w Syringe) 25 ml Q15M PRN IV DECREASED GLUCOSE; Start 12/26/16 at 06:00 Dextrose (D50w Syringe) 50 ml Q15M PRN IV DECREASED GLUCOSE; Start 12/26/16 at 06:00 Glucagon (Glucagen) 1 mg Q15M PRN IM DECREASED GLUCOSE; Start 12/26/16 at 06:00 Glucose (Glutose) 15 gm Q15M PRN BUCCAL DECREASED GLUCOSE; Start 12/26/16 at 06 :00 Magnesium Hydroxide (Milk Of Mag) 30 ml BID PRN PO CONSTIPATION Last administered on 12/27/16 06:56; Admin Dose 30 ML; Start 12/27/16 at 07:00 Atorvastatin Calcium (Lipitor) 80 mg DAILY@21 PO Last administered on 20:45; Admin Dose 80 MG; Start 12/27/16 at 21:00 Clopidogrel Bisulfate (plaVIX) 75 mg DAILY PO Last administered on 12/28/16 09 :22; Admin Dose 75 MG; Start 12/27/16 at 17:30 Assessment/Plan Chief Complaint/Hosp Course 61 year old male with history of uncontrolled DM admitted with Left AUREA stroke, Left A2 occlusion and left vertebral artery occlusion. Etiology possibly intracranial atherosclerosis, would also rule out possibility of cardioembolism Recommendations: Continue aspirin, likely will add Plavix 75 mg treatment for intracranial atherosclerosis is dual antiplatelet for 90 days followed by Plavix 75 mg daily maintain BP< 140/90 Lipitor 80 mg qhs indicated for LDL >100 LORENA tomorrow evaluate for potential cardiac thrombus, appreciate cardiology evaluation optimize diabetes, adjust insulin dosing accordingly goal HBA1C< 7.0% suggest CT Chest w contrast to evaluate pulmonary nodule, r/o malignancy PT/OT/Speech therapies DVT ppx will follow Problems: JESUS AVERY MD Dec 28, 2016 17:43
[2016-12-28] MEDS: MAGNESIUM HYDROXIDE 30ML CUP PO PRN (17:46)
[2016-12-28] MEDS: ATORVASTATIN 80 MG TAB PO SCH (21:39)
[2016-12-29] VITALS (11 sets, daily range): BP systolic 119–131; BP diastolic 66–73; PULSE 58–72; RESP 19–21
[2016-12-29] MEDS: ACCU-CHEK XX SCH (01:44)
--- NOTE | 2016-12-29 06:57 | RADRPT ---
PROCEDURE: CT Chest with contrast. CLINICAL INDICATION: Pulmonary nodule. TECHNIQUE: Helical axial sections were obtained through the chest with intravenous contrast enhanc ement. 100 ml of Visipaque 320 was used for the intravenous contrast. Coronal and sagittal reforma tted images were obtained from the axial source images. Total exam DLP is 600.14 mGy-cm. CTDIvol is 16.51 mGy. One or more of the following dose reduction techniques were used: Automated exposure co ntrol, adjustment of the mA and/or kV according to patient size, use of iterative reconstruction mirza hnique. COMPARISON: Chest x-ray dated 12/25/2016 which demonstrated a 7.5 mm left lower lobe pulmonary no dule. FINDINGS: The lungs are clear with no airspace or interstitial disease. There is no pulmonary nodule or mass lesion. The nodule seen on prior chest x-ray was due to nipple shadow. There is no mediastinal or hilar lymphadenopathy or mass. There is no axillary, supraclavicular, or internal mammary lymphadenopathy. The thoracic aorta is not dilated. The heart size is normal. There is no pleural effusion or pericardial effusion. Images through the upper abdomen demonstrate normal visualized portions of the liver, spleen, and ad renals. There are mild degenerative changes of the spine. IMPRESSION: 1. There is no pulmonary nodule. The nodule seen on prior chest x-ray overlying the left lower lob e was due to nipple shadow. 2. Mild degenerative changes of the spine. 3. Otherwise normal CT scan of the chest. RPTAT: QQ .Julio Silva MD, Date Time Electronically viewed and signed by .Julio Silva MD, on 12/29/2016 06:56 .R/
[2016-12-29 07:34] LABS: BASOPHILS % 0.3 % (0.0-2.0); EOSINOPHILS # 0.1 10^3/ul (0.0-0.5); EOSINOPHILS % 1.7 % (0.0-7.0); HEMATOCRIT 47.5 % (42.0-52.0); HEMOGLOBIN 16.6 g/dl (14.0-18.0); LYMPHOCYTES # 2.8 10^3/ul (0.8-2.9); LYMPHOCYTES % 36.6 % (15.0-51.0); MEAN CORPUSCULAR HEMOGLOBIN 31.4 pg (29.0-33.0); MEAN CORPUSCULAR HGB CONC 34.9 g/dl (32.0-37.0); MEAN PLATELET VOLUME 10.5 fl (7.4-10.4); MONOCYTE # 0.5 10^3/ul (0.3-0.9); MONOCYTES % 6.4 % (0.0-11.0); NEUTROPHIL # 4.2 10^3/ul (1.6-7.5); NEUTROPHILS % 54.7 % (39.0-77.0); PLATELET COUNT 244 10^3/UL (140-415); RED BLOOD COUNT 5.28 10^6/ul (4.70-6.10); WHITE BLOOD COUNT 7.6 10^3/ul (4.8-10.8)
[2016-12-29 07:37] LABS: CALCIUM 9.5 mg/dl (8.4-10.2); CREATININE 0.78 mg/dl (0.61-1.24); POTASSIUM 4.1 mmol/L (3.5-5.1)
[2016-12-29] MEDS: INSULIN ASPART [NOVOLOG] 3 ML PEN SC SCH ×4 (07:45→21:00)
[2016-12-29] MEDS: ASPIRIN (EC) 81 MG TAB PO SCH (08:14)
[2016-12-29] MEDS: CLOPIDOGREL 75 MG TAB PO SCH (08:14)
[2016-12-29] MEDS: HEPARIN 5,000 UNIT/0.5 ML VIAL SC SCH ×2 (08:18→21:00)
[2016-12-29] MEDS: INSULIN GLARGINE [LANtus] 3 ML PEN SC SCH (08:19)
--- NOTE | 2016-12-29 09:31 | PN ---
Date/Time of Note Date/Time of Note DATE: 12/29/16 TIME: 09:20 Assessment/Plan VTE Prophylaxis VTE Prophylaxis Intervention: heparin Lines/Catheters IV [facility] Type (from [facility] Saline Lock Urinary Cath still in place: Yes Reason Cath still needed: other (indicate) Assessment/Plan Chief Complaint/Hosp Course 1. Acute CVA. 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 -Neurology on board. Plan for LORENA today to rule out cardiac thrombus. -Continue dual antiplatelet per neurology recommendation. -Continue with PT/OT/ST 2. Diabetes. A1c at 8.3. -Continue insulin regimen. Will adjust as needed. -Carb controlled diet. -Diabetic education for providing glucometer and other education/resources upon discharge. -Patient also needs metformin upon discharge. 3. Hypercholesterolemia. -On statin 4.Essential HTN. -Currently BP desired range.Will f/u with cards recs on initiation of antihypertensives. 5. Debility secondary to #1. - Continue with physical therapy. We will see for possible rehab unit once ready for discharge Disposition and plan: Continue with PT/OT/ST as well as statin medication and antiplatelet therapy. Follow-up with LORENA findings. Case management for arranging primary care follow-up as outpatient since patient didnot have any primary care follow-up was not able to refill his medications as outpatient which could have led him to have this massive stroke. Discussed plan of care with Problems: Subjective 24 Hr Interval Summary Free Text/Dictation Patient still with expressive aphasia and right-sided weakness. No acute overnight episodes. Exam/Review of Systems Vital Signs Vitals Vital Signs Date Time Temp Pulse Resp B/P Pulse Ox O2 Delivery O2 Flow Rate FiO2 12/29/16 08:02 58 12/29/16 06:55 98.4 20 127/69 94 12/26/16 02:09 Room Air Intake and Output 12/28/16 12/28/16 12/29/16 15:00 23:00 07:00 Intake Total 500 ml 120 ml Output Total 700 ml 650 ml Balance -200 ml -530 ml Exam General: Well developed,adequately built, not in any acute distress . HEENT: Normocephalic, Atraumatic, No laceration or hematoma; Eyes: PEERL, Conjunctiva clear, Anicteric sclera Neck: Supple without any lymphadenopathy, nontender, no JVD, no carotid bruits, trachea midline, no thyromegaly Cardiac: S1, S2 auscultated, regular rhythm and rate, no mumurs or gallop Pulmonary: Normal respiratory effort. Chest clear to auscultation bilaterally, no adventitious breath sounds GI: Abdomen normal to inspection. Soft, non tender, non- distended, no masses, no rebound tenderness or guarding. Bowel sounds active on all four quadrants Genitourinary: Deferred Extremities: With right-sided weakness. Left/leg motor strength 5 out of 5. Right arm/leg flaccid. No cyanosis, clubbing, or edema. Pulses [2+] bilaterally. Neurologic: Severe expressive aphasia. Right facial weakness. Awake and alert. Skin: Clean,dry, and intact. No ecchymosis, no rashes, or lesions Results Result Diagram: 12/29/16 0643 12/29/16 0643 Results 24 hrs Laboratory Tests Test 12/28/16 12:12 12/28/16 12:28 12/28/16 17:45 12/28/16 21:39 White Blood Count 7.8 Red Blood Count 5.28 Hemoglobin 16.8 Hematocrit 47.6 Mean Corpuscular Volume 90.2 Mean Corpuscular Hemoglobin 31.8 Mean Corpuscular Hemoglobin Concent 35.3 Red Cell Distribution Width 13.2 Platelet Count 226 Mean Platelet Volume 10.2 Neutrophils % 59.9 Lymphocytes % 32.1 Monocytes % 5.9 Eosinophils % 1.5 Basophils % 0.3 Nucleated Red Blood Cells % 0.0 Neutrophils # 4.7 Lymphocytes # 2.5 Monocytes # 0.5 Eosinophils # 0.1 Basophils # 0.0 Nucleated Red Blood Cells # 0.0 Sodium Level 140 Potassium Level 4.4 Chloride Level 102 Carbon Dioxide Level 22 Anion Gap 20 H Blood Urea Nitrogen 15 Creatinine 0.68 Glucose Level 122 Calcium Level 9.4 Bedside Glucose 123 116 112 Test 12/29/16 06:43 12/29/16 07:41 White Blood Count 7.6 Red Blood Count 5.28 Hemoglobin 16.6 Hematocrit 47.5 Mean Corpuscular Volume 90.0 Mean Corpuscular Hemoglobin 31.4 Mean Corpuscular Hemoglobin Concent 34.9 Red Cell Distribution Width 13.0 Platelet Count 244 Mean Platelet Volume 10.5 H Neutrophils % 54.7 Lymphocytes % 36.6 Monocytes % 6.4 Eosinophils % 1.7 Basophils % 0.3 Nucleated Red Blood Cells % 0.0 Neutrophils # 4.2 Lymphocytes # 2.8 Monocytes # 0.5 Eosinophils # 0.1 Basophils # 0.0 Nucleated Red Blood Cells # 0.0 Sodium Level 139 Potassium Level 4.1 Chloride Level 99 Carbon Dioxide Level 25 Anion Gap 19 H Blood Urea Nitrogen 17 Creatinine 0.78 Glucose Level 128 Calcium Level 9.5 Bedside Glucose 120 Medications Medications Current Medications Aspirin (Halfprin) 81 mg DAILY PO Last administered on 12/29/16 08:14; Admin Dose 81 MG; Start 12/26/16 at 09:00 Ondansetron HCl (Zofran Inj) 4 mg Q6H PRN IV NAUSEA AND/OR VOMITING; Start at 03:30 Heparin Sodium (Porcine) (Heparin (5000 Units/0.5 ml)) 5,000 unit BID SC Last administered on 12/29/16 08:18; Admin Dose 5,000 UNIT; Start 12/26/16 at 09:00 Insulin Glargine (Lantus) 12 unit DAILY@08 SC Last administered on 12/29/16 08 :19; Admin Dose 12 UNIT; Start 12/26/16 at 08:00 Diagnostic Test (Pha) (Accu-Chek) 1 ea 02 XX ; Start 12/27/16 at 02:00 Miscellaneous Information 1 ea NOTE XX ; Start 12/26/16 at 06:00 Glucose (Glutose) 15 gm Q15M PRN PO DECREASED GLUCOSE; Start 12/26/16 at 06:00 Glucose (Glutose) 22.5 gm Q15M PRN PO DECREASED GLUCOSE; Start 12/26/16 at 06: 00 Dextrose (D50w Syringe) 25 ml Q15M PRN IV DECREASED GLUCOSE; Start 12/26/16 at 06:00 Dextrose (D50w Syringe) 50 ml Q15M PRN IV DECREASED GLUCOSE; Start 12/26/16 at 06:00 Glucagon (Glucagen) 1 mg Q15M PRN IM DECREASED GLUCOSE; Start 12/26/16 at 06:00 Glucose (Glutose) 15 gm Q15M PRN BUCCAL DECREASED GLUCOSE; Start 12/26/16 at 06 :00 Magnesium Hydroxide (Milk Of Mag) 30 ml BID PRN PO CONSTIPATION Last administered on 12/28/16 17:46; Admin Dose 30 ML; Start 12/27/16 at 07:00 Atorvastatin Calcium (Lipitor) 80 mg DAILY@21 PO Last administered on 21:39; Admin Dose 80 MG; Start 12/27/16 at 21:00 Clopidogrel Bisulfate (plaVIX) 75 mg DAILY PO Last administered on 12/29/16 08 :14; Admin Dose 75 MG; Start 12/27/16 at 17:30 NAMAN THOMPSON V. [employer] Dec 29, 2016 09:31
--- NOTE | 2016-12-29 12:05 | CONS ---
Date/Time of Note Date/Time of Note DATE: 12/29/16 TIME: 12:04 Consult Date/Type/Reason Admit Date/Time Dec 26, 2016 at 00:47 Initial Consult Date 12/26/16 Type of Consultation: Neurology Reason for Consultation CVA Ordering Provider: NAMAN THOMPSON NP Subjective eating w family at bedside remains non-verbal LORENA planned for tomorrow Objective Vital Signs Date Time Temp Pulse Resp B/P Pulse Ox O2 Delivery O2 Flow Rate FiO2 12/29/16 12:01 66 12/29/16 11:10 98.6 20 125/73 94 12/26/16 02:09 Room Air Intake and Output 12/28/16 12/28/16 12/29/16 15:00 23:00 07:00 Intake Total 500 ml 120 ml Output Total 700 ml 650 ml Balance -200 ml -530 ml Exam awake and alert gazes at examiner in both directions tracks to voice non-verbal severe verbal apraxia and expressive aphasia 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 infarction CN: ALEXIA, blinks to threat bilaterally, right facial weakness Motor: left arm and leg 5/5 right arm flaccid and right leg flaccid no withdrawal Results/Medications Result Diagram: 12/29/16 0643 12/29/16 0643 Results 24 hrs Laboratory Tests Test 12/28/16 12:12 12/28/16 12:28 12/28/16 17:45 12/28/16 21:39 White Blood Count 7.8 Red Blood Count 5.28 Hemoglobin 16.8 Hematocrit 47.6 Mean Corpuscular Volume 90.2 Mean Corpuscular Hemoglobin 31.8 Mean Corpuscular Hemoglobin Concent 35.3 Red Cell Distribution Width 13.2 Platelet Count 226 Mean Platelet Volume 10.2 Neutrophils % 59.9 Lymphocytes % 32.1 Monocytes % 5.9 Eosinophils % 1.5 Basophils % 0.3 Nucleated Red Blood Cells % 0.0 Neutrophils # 4.7 Lymphocytes # 2.5 Monocytes # 0.5 Eosinophils # 0.1 Basophils # 0.0 Nucleated Red Blood Cells # 0.0 Sodium Level 140 Potassium Level 4.4 Chloride Level 102 Carbon Dioxide Level 22 Anion Gap 20 H Blood Urea Nitrogen 15 Creatinine 0.68 Glucose Level 122 Calcium Level 9.4 Bedside Glucose 123 116 112 Test 12/29/16 06:43 12/29/16 07:41 12/29/16 11:00 White Blood Count 7.6 Red Blood Count 5.28 Hemoglobin 16.6 Hematocrit 47.5 Mean Corpuscular Volume 90.0 Mean Corpuscular Hemoglobin 31.4 Mean Corpuscular Hemoglobin Concent 34.9 Red Cell Distribution Width 13.0 Platelet Count 244 Mean Platelet Volume 10.5 H Neutrophils % 54.7 Lymphocytes % 36.6 Monocytes % 6.4 Eosinophils % 1.7 Basophils % 0.3 Nucleated Red Blood Cells % 0.0 Neutrophils # 4.2 Lymphocytes # 2.8 Monocytes # 0.5 Eosinophils # 0.1 Basophils # 0.0 Nucleated Red Blood Cells # 0.0 Sodium Level 139 Potassium Level 4.1 Chloride Level 99 Carbon Dioxide Level 25 Anion Gap 19 H Blood Urea Nitrogen 17 Creatinine 0.78 Glucose Level 128 Calcium Level 9.5 Bedside Glucose 120 133 Medications Current Medications Aspirin (Halfprin) 81 mg DAILY PO Last administered on 12/29/16 08:14; Admin Dose 81 MG; Start 12/26/16 at 09:00 Ondansetron HCl (Zofran Inj) 4 mg Q6H PRN IV NAUSEA AND/OR VOMITING; Start at 03:30 Heparin Sodium (Porcine) (Heparin (5000 Units/0.5 ml)) 5,000 unit BID SC Last administered on 12/29/16 08:18; Admin Dose 5,000 UNIT; Start 12/26/16 at 09:00 Insulin Glargine (Lantus) 12 unit DAILY@08 SC Last administered on 12/29/16 08 :19; Admin Dose 12 UNIT; Start 12/26/16 at 08:00 Diagnostic Test (Pha) (Accu-Chek) 1 ea 02 XX ; Start 12/27/16 at 02:00 Miscellaneous Information 1 ea NOTE XX ; Start 12/26/16 at 06:00 Glucose (Glutose) 15 gm Q15M PRN PO DECREASED GLUCOSE; Start 12/26/16 at 06:00 Glucose (Glutose) 22.5 gm Q15M PRN PO DECREASED GLUCOSE; Start 12/26/16 at 06: 00 Dextrose (D50w Syringe) 25 ml Q15M PRN IV DECREASED GLUCOSE; Start 12/26/16 at 06:00 Dextrose (D50w Syringe) 50 ml Q15M PRN IV DECREASED GLUCOSE; Start 12/26/16 at 06:00 Glucagon (Glucagen) 1 mg Q15M PRN IM DECREASED GLUCOSE; Start 12/26/16 at 06:00 Glucose (Glutose) 15 gm Q15M PRN BUCCAL DECREASED GLUCOSE; Start 12/26/16 at 06 :00 Magnesium Hydroxide (Milk Of Mag) 30 ml BID PRN PO CONSTIPATION Last administered on 12/28/16 17:46; Admin Dose 30 ML; Start 12/27/16 at 07:00 Atorvastatin Calcium (Lipitor) 80 mg DAILY@21 PO Last administered on 21:39; Admin Dose 80 MG; Start 12/27/16 at 21:00 Clopidogrel Bisulfate (plaVIX) 75 mg DAILY PO Last administered on 12/29/16 08 :14; Admin Dose 75 MG; Start 12/27/16 at 17:30 Famotidine (Pepcid) 20 mg BID PO ; Start 12/29/16 at 21:00 Assessment/Plan Chief Complaint/Hosp Course 61 year old male with history of uncontrolled DM admitted with Left AUREA stroke, Left A2 occlusion and left vertebral artery occlusion. Etiology possibly intracranial atherosclerosis, would also rule out possibility of cardioembolism. LORENA pending and planned for tomorrow Recommendations: Continue aspirin, likely will add Plavix 75 mg treatment for intracranial atherosclerosis is dual antiplatelet for 90 days followed by Plavix 75 mg daily maintain BP< 140/90 Lipitor 80 mg qhs indicated for LDL >100 LORENA tomorrow evaluate for potential cardiac thrombus, appreciate cardiology evaluation optimize diabetes, adjust insulin dosing accordingly goal HBA1C< 7.0% suggest CT Chest w contrast to evaluate pulmonary nodule, r/o malignancy PT/OT/Speech therapies DVT ppx will follow Problems: JESUS AVERY MD Dec 29, 2016 12:05
--- NOTE | 2016-12-29 12:28 | CONS ---
Date/Time of Note Date/Time of Note DATE: 12/29/16 TIME: 12:24 Assessment/Plan Assessment/Plan Chief Complaint/Hosp Course IMP: 1.CVA-qcute 2.HTN 3.HL 4.DM Recc: -TTE unrevealing -scheduled for LORENA tomorrow 2:30 pm -Continue plavix/asa -contineu statin Problems: Consultation Date/Type/Reason Admit Date/Time Dec 26, 2016 at 00:47 Initial Consult Date 12/26/16 Type of Consultation: cardiology Reason for Consultation cva Referring Provider: NAMAN THOMPSON NP Exam/Review of Systems Vital Signs Vitals Vital Signs Date Time Temp Pulse Resp B/P Pulse Ox O2 Delivery O2 Flow Rate FiO2 12/29/16 12:01 66 12/29/16 11:10 98.6 20 125/73 94 12/26/16 02:09 Room Air Intake and Output 12/28/16 12/28/16 12/29/16 15:00 23:00 07:00 Intake Total 500 ml 120 ml Output Total 700 ml 650 ml Balance -200 ml -530 ml Exam Review of Systems: CONSTITUTIONAL: No fevers, chills. PULMONARY: No sob CARDIOVASCULAR: No chest pain/palpitations GASTROINTESTINAL: No nausea/vomiting. GENITOURINARY: No hematuria/dysuria. MUSCULOSKELETAL: No myagias/arthalgias. PSYCHIATRIC: The patient denies depression. NEUROLOGIC: aphasic Constitutional: alert Psych: no complaints Head: normocephalic ENMT: mucosa pink and moist Neck: jvd (8-9 cm water), supple Respiratory: diminished breath sounds (at bases/B) Cardiovascular: regular rate and rhythm Gastrointestinal: non-tender, soft Musculoskeletal: muscle tone (normal) Extremities: edema (none) Neurological: other (No focal deficits) Results Result Diagram: 12/29/16 0643 12/29/16 0643 Results 24 hrs Laboratory Tests Test 12/28/16 12:28 12/28/16 17:45 12/28/16 21:39 12/29/16 06:43 Bedside Glucose 123 116 112 White Blood Count 7.6 Red Blood Count 5.28 Hemoglobin 16.6 Hematocrit 47.5 Mean Corpuscular Volume 90.0 Mean Corpuscular Hemoglobin 31.4 Mean Corpuscular Hemoglobin Concent 34.9 Red Cell Distribution Width 13.0 Platelet Count 244 Mean Platelet Volume 10.5 H Neutrophils % 54.7 Lymphocytes % 36.6 Monocytes % 6.4 Eosinophils % 1.7 Basophils % 0.3 Nucleated Red Blood Cells % 0.0 Neutrophils # 4.2 Lymphocytes # 2.8 Monocytes # 0.5 Eosinophils # 0.1 Basophils # 0.0 Nucleated Red Blood Cells # 0.0 Sodium Level 139 Potassium Level 4.1 Chloride Level 99 Carbon Dioxide Level 25 Anion Gap 19 H Blood Urea Nitrogen 17 Creatinine 0.78 Glucose Level 128 Calcium Level 9.5 Test 12/29/16 07:41 12/29/16 11:00 Bedside Glucose 120 133 Medications Medications Current Medications Aspirin (Halfprin) 81 mg DAILY PO Last administered on 12/29/16 08:14; Admin Dose 81 MG; Start 12/26/16 at 09:00 Ondansetron HCl (Zofran Inj) 4 mg Q6H PRN IV NAUSEA AND/OR VOMITING; Start at 03:30 Heparin Sodium (Porcine) (Heparin (5000 Units/0.5 ml)) 5,000 unit BID SC Last administered on 12/29/16 08:18; Admin Dose 5,000 UNIT; Start 12/26/16 at 09:00 Insulin Glargine (Lantus) 12 unit DAILY@08 SC Last administered on 12/29/16 08 :19; Admin Dose 12 UNIT; Start 12/26/16 at 08:00 Diagnostic Test (Pha) (Accu-Chek) 1 ea 02 XX ; Start 12/27/16 at 02:00 Miscellaneous Information 1 ea NOTE XX ; Start 12/26/16 at 06:00 Glucose (Glutose) 15 gm Q15M PRN PO DECREASED GLUCOSE; Start 12/26/16 at 06:00 Glucose (Glutose) 22.5 gm Q15M PRN PO DECREASED GLUCOSE; Start 12/26/16 at 06: 00 Dextrose (D50w Syringe) 25 ml Q15M PRN IV DECREASED GLUCOSE; Start 12/26/16 at 06:00 Dextrose (D50w Syringe) 50 ml Q15M PRN IV DECREASED GLUCOSE; Start 12/26/16 at 06:00 Glucagon (Glucagen) 1 mg Q15M PRN IM DECREASED GLUCOSE; Start 12/26/16 at 06:00 Glucose (Glutose) 15 gm Q15M PRN BUCCAL DECREASED GLUCOSE; Start 12/26/16 at 06 :00 Magnesium Hydroxide (Milk Of Mag) 30 ml BID PRN PO CONSTIPATION Last administered on 12/28/16 17:46; Admin Dose 30 ML; Start 12/27/16 at 07:00 Atorvastatin Calcium (Lipitor) 80 mg DAILY@21 PO Last administered on 21:39; Admin Dose 80 MG; Start 12/27/16 at 21:00 Clopidogrel Bisulfate (plaVIX) 75 mg DAILY PO Last administered on 12/29/16 08 :14; Admin Dose 75 MG; Start 12/27/16 at 17:30 Famotidine (Pepcid) 20 mg BID PO ; Start 12/29/16 at 21:00 MATTHIEU TAYLOR Dec 29, 2016 12:28
--- NOTE | 2016-12-29 15:52 | RADRPT ---
Vent Rate: 60 bpm RR Interval: 0 msec LA Interval: 162 msec QRS Duration: 88 msec QT Interval: 404 msec QTC Interval: 404 msec P-R-T [place]: 56 - 59 - 60 degrees Normal sinus rhythm Normal ECG Electronically Signed By: Saud Hahn [id number]
[2016-12-29] MEDS: ATORVASTATIN 80 MG TAB PO SCH (21:00)
[2016-12-29] MEDS: FAMOTIDINE 20 MG TAB PO SCH (21:00)
[2016-12-30] VITALS (24 sets, daily range): BP systolic 112–143; BP diastolic 67–90; PULSE 54–76; RESP 10–20
[2016-12-30] MEDS: ACCU-CHEK XX SCH (02:00)
[2016-12-30 06:45] LABS: BASOPHILS % 0.3 % (0.0-2.0); EOSINOPHILS # 0.3 10^3/ul (0.0-0.5); EOSINOPHILS % 3.3 % (0.0-7.0); HEMATOCRIT 46.3 % (42.0-52.0); HEMOGLOBIN 16.1 g/dl (14.0-18.0); LYMPHOCYTES # 3.2 10^3/ul (0.8-2.9); LYMPHOCYTES % 35.3 % (15.0-51.0); MEAN CORPUSCULAR HEMOGLOBIN 31.2 pg (29.0-33.0); MEAN CORPUSCULAR HGB CONC 34.8 g/dl (32.0-37.0); MEAN CORPUSCULAR VOLUME 89.7 fl (82.0-101.0); MEAN PLATELET VOLUME 10.4 fl (7.4-10.4); MONOCYTE # 0.7 10^3/ul (0.3-0.9); MONOCYTES % 7.4 % (0.0-11.0); NEUTROPHIL # 4.9 10^3/ul (1.6-7.5); NEUTROPHILS % 53.4 % (39.0-77.0); PLATELET COUNT 244 10^3/UL (140-415); RED BLOOD COUNT 5.16 10^6/ul (4.70-6.10); RED CELL DISTRIBUTION WIDTH 13.2 % (11.5-14.5); WHITE BLOOD COUNT 9.1 10^3/ul (4.8-10.8)
[2016-12-30 07:43] LABS: CALCIUM 9.5 mg/dl (8.4-10.2); CREATININE 0.87 mg/dl (0.61-1.24); POTASSIUM 4.3 mmol/L (3.5-5.1)
[2016-12-30] MEDS: INSULIN ASPART [NOVOLOG] 3 ML PEN SC SCH ×4 (07:55→20:50)
[2016-12-30] MEDS: HEPARIN 5,000 UNIT/0.5 ML VIAL SC SCH ×2 (08:06→20:46)
[2016-12-30] MEDS: INSULIN GLARGINE [LANtus] 3 ML PEN SC SCH (08:06)
[2016-12-30] MEDS: ASPIRIN (EC) 81 MG TAB PO SCH (08:12)
[2016-12-30] MEDS: FAMOTIDINE 20 MG TAB PO SCH ×2 (08:13→20:45)
[2016-12-30] MEDS: CLOPIDOGREL 75 MG TAB PO SCH (08:13)
--- NOTE | 2016-12-30 11:09 | PN ---
Date/Time of Note Date/Time of Note DATE: 12/30/16 TIME: 11:06 Assessment/Plan VTE Prophylaxis VTE Prophylaxis Intervention: heparin Lines/Catheters IV [facility] Type [facility]from [facility] Saline Lock Urinary Cath still in place: Yes Reason Cath still needed: other (indicate) Assessment/Plan Chief Complaint/Hosp Course 1. Acute CVA with right sided weakness and expressive aphasia. 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 Symptoms improving gradually. -Neurology on board. Plan for LORENA today to rule out cardiac thrombus. -Continue dual antiplatelet per neurology recommendation. -Continue with PT/OT/ST 2. Diabetes. A1c at 8.3. -Continue insulin regimen. Will adjust as needed. -Carb controlled diet. -Diabetic education for providing glucometer and other education/resources upon discharge. -Patient also needs metformin upon discharge. 3. Hypercholesterolemia. -On statin 4.Essential HTN. -Currently BP desired range.Will f/u with cards recs on initiation of antihypertensives. 5. Debility secondary to #1. - Continue with physical therapy. We will see for possible rehab unit once ready for discharge DVT prophylaxis: Heparin subcu PUD prophylaxis : Pepcid. Disposition and plan: Continue with PT/OT/ST as well as statin medication and antiplatelet therapy. Follow-up with LORENA findings. Case management for arranging primary care follow-up as outpatient since patient didnot have any primary care follow-up was not able to refill his medications as outpatient which could have led him to have this massive stroke. Discussed plan of care with Dr. Manriquez Problems: Subjective 24 Hr Interval Summary Free Text/Dictation Patient remains nonverbal.With more strength on right side and was able to ambulate few steps with PT. For LORENA today. Exam/Review of Systems Vital Signs Vitals Vital Signs Date Time Temp Pulse Resp B/P Pulse Ox O2 Delivery O2 Flow Rate FiO2 12/30/16 08:07 61 12/30/16 07:19 98.7 18 126/75 94 Intake and Output 12/29/16 12/29/16 12/30/16 15:00 23:00 07:00 Intake Total 500 ml 400 ml Output Total 1400 ml 700 ml Balance -900 ml -300 ml Exam General: Well developed,adequately built, not in any acute distress . HEENT: Normocephalic, Atraumatic, No laceration or hematoma; Eyes: PEERL, Conjunctiva clear, Anicteric sclera Neck: Supple without any lymphadenopathy, nontender, no JVD, no carotid bruits, trachea midline, no thyromegaly Cardiac: S1, S2 auscultated, regular rhythm and rate, no mumurs or gallop Pulmonary: Normal respiratory effort. Chest clear to auscultation bilaterally, no adventitious breath sounds GI: Abdomen normal to inspection. Soft, non tender, non- distended, no masses, no rebound tenderness or guarding. Bowel sounds active on all four quadrants Genitourinary: Deferred Extremities: With right-sided weakness-improving. Left/leg motor strength 5 out of 5. Right arm/leg 2/5. No cyanosis, clubbing, or edema. Pulses [2+] bilaterally. Neurologic: Severe expressive aphasia. Right facial weakness. Awake and alert. Skin: Clean,dry, and intact. No ecchymosis, no rashes, or lesions Results Result Diagram: 12/30/1662112/30/16621 Results 24 hrs Laboratory Tests Test 12/29/16 17:20 12/29/16 21:00 12/30/16 06:22 12/30/16 08:02 Bedside Glucose 108 123 131 White Blood Count 9.1 Red Blood Count 5.16 Hemoglobin 16.1 Hematocrit 46.3 Mean Corpuscular Volume 89.7 Mean Corpuscular Hemoglobin 31.2 Mean Corpuscular Hemoglobin Concent 34.8 Red Cell Distribution Width 13.2 Platelet Count 244 Mean Platelet Volume 10.4 Neutrophils % 53.4 Lymphocytes % 35.3 Monocytes % 7.4 Eosinophils % 3.3 Basophils % 0.3 Nucleated Red Blood Cells % 0.0 Neutrophils # 4.9 Lymphocytes # 3.2 H Monocytes # 0.7 Eosinophils # 0.3 Basophils # 0.0 Nucleated Red Blood Cells # 0.0 Sodium Level 140 Potassium Level 4.3 Chloride Level 100 Carbon Dioxide Level 25 Anion Gap 19 H Blood Urea Nitrogen 17 Creatinine 0.87 Glucose Level 125 Calcium Level 9.5 Medications Medications Current Medications Aspirin (Halfprin) 81 mg DAILY PO Last administered on 12/29/16t 08:14; Admin Dose 81 MG; Start 12/26/16 at 09:00 Ondansetron HCl (Zofran Inj) 4 mg Q6H PRN IV NAUSEA AND/OR VOMITING; Start at 03:30 Heparin Sodium (Porcine) (Heparin (5000 Units/0.5 ml)) 5,000 unit BID SC Last administered on 12/30/16 08:06; Admin Dose 5,000 UNIT; Start 12/26/16 at 09:00 Insulin Glargine (Lantus) 12 unit DAILY@08 SC Last administered on 12/30/16 08 :06; Admin Dose 12 UNIT; Start 12/26/16 at 08:00 Diagnostic Test (Pha) (Accu-Chek) 1 ea 02 XX ; Start 12/27/16 at 02:00 Miscellaneous Information 1 ea NOTE XX ; Start 12/26/16 at 06:00 Glucose (Glutose) 15 gm Q15M PRN PO DECREASED GLUCOSE; Start 12/26/16 at 06:00 Glucose (Glutose) 22.5 gm Q15M PRN PO DECREASED GLUCOSE; Start 12/26/16 at 06: 00 Dextrose (D50w Syringe) 25 ml Q15M PRN IV DECREASED GLUCOSE; Start 12/26/16 at 06:00 Dextrose (D50w Syringe) 50 ml Q15M PRN IV DECREASED GLUCOSE; Start 12/26/16 at 06:00 Glucagon (Glucagen) 1 mg Q15M PRN IM DECREASED GLUCOSE; Start 12/26/16 at 06:00 Glucose (Glutose) 15 gm Q15M PRN BUCCAL DECREASED GLUCOSE; Start 12/26/16 at 06 :00 Magnesium Hydroxide (Milk Of Mag) 30 ml BID PRN PO CONSTIPATION Last administered on 12/28/16 17:46; Admin Dose 30 ML; Start 12/27/16 at 07:00 Atorvastatin Calcium (Lipitor) 80 mg DAILY@21 PO Last administered on 21:00; Admin Dose 80 MG; Start 12/27/16 at 21:00 Clopidogrel Bisulfate (plaVIX) 75 mg DAILY PO Last administered on 12/29/16 08 :14; Admin Dose 75 MG; Start 12/27/16 at 17:30 Famotidine (Pepcid) 20 mg BID PO Last administered on 12/29/16 21:00; Admin Dose 20 MG; Start 12/29/16 at 21:00 NAMAN THOMPSON NP Dec 30, 2016 11:08
[2016-12-30 12:42] LABS: BASOPHILS % 0.3 % (0.0-2.0); EOSINOPHILS # 0.2 10^3/ul (0.0-0.5); EOSINOPHILS % 2.4 % (0.0-7.0); HEMATOCRIT 48.1 % (42.0-52.0); LYMPHOCYTES % 23.4 % (15.0-51.0); MEAN CORPUSCULAR HEMOGLOBIN 31.9 pg (29.0-33.0); MEAN CORPUSCULAR HGB CONC 35.3 g/dl (32.0-37.0); MEAN CORPUSCULAR VOLUME 90.2 fl (82.0-101.0); MEAN PLATELET VOLUME 10.3 fl (7.4-10.4); MONOCYTE # 0.5 10^3/ul (0.3-0.9); NEUTROPHIL # 5.8 10^3/ul (1.6-7.5); NEUTROPHILS % 67.6 % (39.0-77.0); PLATELET COUNT 243 10^3/UL (140-415); RED BLOOD COUNT 5.33 10^6/ul (4.70-6.10); RED CELL DISTRIBUTION WIDTH 13.1 % (11.5-14.5); WHITE BLOOD COUNT 8.6 10^3/ul (4.8-10.8)
[2016-12-30 13:09] LABS: INR 0.96; PROTIME 12.8 Sec (12.2-14.2)
[2016-12-30 13:10] LABS: PARTIAL THROMBOPLASTIN TIME 28.5 Sec (25.0-35.0)
--- NOTE | 2016-12-30 14:47 | CONS ---
Date/Time of Note Date/Time of Note DATE: 12/30/16 TIME: 14:44 Assessment/Plan Assessment/Plan Chief Complaint/Hosp Course IMP: 1.CVA-ACute 2.HTN 3.HL 4.DM Recc: -TTE unrevealing -now S/P LORENA today with definite findings of intra-cardiac source of embolus and no PFO or other inter-atrial septal defect -Continue plavix/asa -continue statin Problems: Consultation Date/Type/Reason Admit Date/Time Dec 26, 2016 at 00:47 Initial Consult Date 12/26/16 Type of Consultation: cardiology Reason for Consultation cva Referring Provider: NAMAN THOMPSON NP Exam/Review of Systems Vital Signs Vitals Vital Signs Date Time Temp Pulse Resp B/P Pulse Ox O2 Delivery O2 Flow Rate FiO2 12/30/16 12:01 59 12/30/16 11:22 98.2 16 115/71 97 Intake and Output 12/29/16 12/29/16 12/30/16 15:00 23:00 07:00 Intake Total 500 ml 400 ml Output Total 1400 ml 700 ml Balance -900 ml -300 ml Exam Review of Systems: CONSTITUTIONAL: No fevers, chills. PULMONARY: No sob CARDIOVASCULAR: No chest pain/palpitations GASTROINTESTINAL: No nausea/vomiting. GENITOURINARY: No hematuria/dysuria. MUSCULOSKELETAL: No myagias/arthalgias. PSYCHIATRIC: The patient denies depression. NEUROLOGIC: aphasic Constitutional: alert Psych: no complaints Head: normocephalic ENMT: intubated Neck: jvd (9 cm water), supple Respiratory: diminished breath sounds (at bases/b) Cardiovascular: regular rate and rhythm Gastrointestinal: non-tender, soft Musculoskeletal: muscle weakness (FOCAL) Extremities: edema (NONE) Neurological: focal weakness Results Result Diagram: 12/30/16 1222 12/30/16 0622 Results 24 hrs Laboratory Tests Test 12/29/16 17:20 12/29/16 21:00 12/30/16 06:22 12/30/16 08:02 Bedside Glucose 108 123 131 White Blood Count 9.1 Red Blood Count 5.16 Hemoglobin 16.1 Hematocrit 46.3 Mean Corpuscular Volume 89.7 Mean Corpuscular Hemoglobin 31.2 Mean Corpuscular Hemoglobin Concent 34.8 Red Cell Distribution Width 13.2 Platelet Count 244 Mean Platelet Volume 10.4 Neutrophils % 53.4 Lymphocytes % 35.3 Monocytes % 7.4 Eosinophils % 3.3 Basophils % 0.3 Nucleated Red Blood Cells % 0.0 Neutrophils # 4.9 Lymphocytes # 3.2 H Monocytes # 0.7 Eosinophils # 0.3 Basophils # 0.0 Nucleated Red Blood Cells # 0.0 Sodium Level 140 Potassium Level 4.3 Chloride Level 100 Carbon Dioxide Level 25 Anion Gap 19 H Blood Urea Nitrogen 17 Creatinine 0.87 Glucose Level 125 Calcium Level 9.5 Test 12/30/16 12:22 12/30/16 13:15 White Blood Count 8.6 Red Blood Count 5.33 Hemoglobin 17.0 Hematocrit 48.1 Mean Corpuscular Volume 90.2 Mean Corpuscular Hemoglobin 31.9 Mean Corpuscular Hemoglobin Concent 35.3 Red Cell Distribution Width 13.1 Platelet Count 243 Mean Platelet Volume 10.3 Neutrophils % 67.6 Lymphocytes % 23.4 Monocytes % 6.0 Eosinophils % 2.4 Basophils % 0.3 Nucleated Red Blood Cells % 0.0 Neutrophils # 5.8 Lymphocytes # 2.0 Monocytes # 0.5 Eosinophils # 0.2 Basophils # 0.0 Nucleated Red Blood Cells # 0.0 Prothrombin Time 12.8 Prothrombin Time Ratio 1.0 INR International Normalized Ratio 0.96 Activated Partial Thromboplast Time 28.5 Bedside Glucose 118 Medications Medications Current Medications Aspirin (Halfprin) 81 mg DAILY PO Last administered on 12/29/16 08:14; Admin Dose 81 MG; Start 12/26/16 at 09:00 Ondansetron HCl (Zofran Inj) 4 mg Q6H PRN IV NAUSEA AND/OR VOMITING; Start at 03:30 Heparin Sodium (Porcine) (Heparin (5000 Units/0.5 ml)) 5,000 unit BID SC Last administered on 12/30/16 08:06; Admin Dose 5,000 UNIT; Start 12/26/16 at 09:00 Insulin Glargine (Lantus) 12 unit DAILY@08 SC Last administered on 12/30/16 08 :06; Admin Dose 12 UNIT; Start 12/26/16 at 08:00 Diagnostic Test (Pha) (Accu-Chek) 1 ea 02 XX ; Start 12/27/16 at 02:00 Miscellaneous Information 1 ea NOTE XX ; Start 12/26/16 at 06:00 Glucose (Glutose) 15 gm Q15M PRN PO DECREASED GLUCOSE; Start 12/26/16 at 06:00 Glucose (Glutose) 22.5 gm Q15M PRN PO DECREASED GLUCOSE; Start 12/26/16 at 06: 00 Dextrose (D50w Syringe) 25 ml Q15M PRN IV DECREASED GLUCOSE; Start 12/26/16 at 06:00 Dextrose (D50w Syringe) 50 ml Q15M PRN IV DECREASED GLUCOSE; Start 12/26/16 at 06:00 Glucagon (Glucagen) 1 mg Q15M PRN IM DECREASED GLUCOSE; Start 12/26/16 at 06:00 Glucose (Glutose) 15 gm Q15M PRN BUCCAL DECREASED GLUCOSE; Start 12/26/16 at 06 :00 Magnesium Hydroxide (Milk Of Mag) 30 ml BID PRN PO CONSTIPATION Last administered on 12/28/16 17:46; Admin Dose 30 ML; Start 12/27/16 at 07:00 Atorvastatin Calcium (Lipitor) 80 mg DAILY@21 PO Last administered on 21:00; Admin Dose 80 MG; Start 12/27/16 at 21:00 Clopidogrel Bisulfate (plaVIX) 75 mg DAILY PO Last administered on 12/29/16 08 :14; Admin Dose 75 MG; Start 12/27/16 at 17:30 Famotidine (Pepcid) 20 mg BID PO Last administered on 12/29/16 21:00; Admin Dose 20 MG; Start 12/29/16 at 21:00 MATTHIEU TAYLOR Dec 30, 2016 14:47
[2016-12-30] MEDS: ATORVASTATIN 80 MG TAB PO SCH (20:45)
[2016-12-31] VITALS (12 sets, daily range): BP systolic 112–122; BP diastolic 73–79; PULSE 61–71; RESP 16–20
[2016-12-31] MEDS: ACCU-CHEK XX SCH (02:00)
[2016-12-31] MEDS: INSULIN ASPART [NOVOLOG] 3 ML PEN SC SCH ×4 (08:04→21:00)
[2016-12-31] MEDS: INSULIN GLARGINE [LANtus] 3 ML PEN SC SCH (08:06)
[2016-12-31 08:21] LABS: BASOPHILS % 0.2 % (0.0-2.0); EOSINOPHILS # 0.2 10^3/ul (0.0-0.5); EOSINOPHILS % 2.1 % (0.0-7.0); HEMOGLOBIN 16.4 g/dl (14.0-18.0); LYMPHOCYTES # 2.8 10^3/ul (0.8-2.9); LYMPHOCYTES % 24.6 % (15.0-51.0); MEAN CORPUSCULAR HEMOGLOBIN 31.4 pg (29.0-33.0); MEAN CORPUSCULAR HGB CONC 34.9 g/dl (32.0-37.0); MEAN PLATELET VOLUME 11.1 fl (7.4-10.4); MONOCYTE # 0.8 10^3/ul (0.3-0.9); MONOCYTES % 7.4 % (0.0-11.0); NEUTROPHIL # 7.4 10^3/ul (1.6-7.5); NEUTROPHILS % 65.4 % (39.0-77.0); PLATELET COUNT 248 10^3/UL (140-415); RED BLOOD COUNT 5.22 10^6/ul (4.70-6.10); RED CELL DISTRIBUTION WIDTH 13.3 % (11.5-14.5); WHITE BLOOD COUNT 11.3 10^3/ul (4.8-10.8)
[2016-12-31 09:04] LABS: CALCIUM 9.5 mg/dl (8.4-10.2); CREATININE 0.78 mg/dl (0.61-1.24); POTASSIUM 3.7 mmol/L (3.5-5.1)
[2016-12-31] MEDS: FAMOTIDINE 20 MG TAB PO SCH ×2 (09:21→20:52)
[2016-12-31] MEDS: ASPIRIN (EC) 81 MG TAB PO SCH (09:21)
[2016-12-31] MEDS: CLOPIDOGREL 75 MG TAB PO SCH (09:21)
[2016-12-31] MEDS: HEPARIN 5,000 UNIT/0.5 ML VIAL SC SCH ×2 (09:24→21:00)
--- NOTE | 2016-12-31 10:29 | PN ---
Date/Time of Note Date/Time of Note DATE: 12/31/16 TIME: 10:29 Assessment/Plan VTE Prophylaxis VTE Prophylaxis Intervention: heparin Lines/Catheters IV [facility] Urinary Cath still in place: No Assessment/Plan Chief Complaint/Hosp Course 1. Acute CVA with right sided weakness and expressive aphasia. 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 Symptoms improving gradually. LORENA negative for any cardiac sources. -Neurology on board. Recommended 90 day dual antiplatelet therapy followed by Plavix 75 thereafter. -Continue with PT/OT/ST 2. Diabetes. A1c at 8.3. -Continue insulin regimen. -Carb controlled diet. -Diabetic education for providing glucometer and other education/resources upon discharge. -Patient also needs metformin upon discharge. 3. Hypercholesterolemia. -On statin 4.Essential HTN. -Currently BP desired range.Will f/u with cards recs on initiation of antihypertensives. 5. Debility secondary to #1. Improved. - Continue with physical therapy. DVT prophylaxis: Heparin subcu PUD prophylaxis : Pepcid. Disposition and plan: Continue with PT/OT/ST as well as statin medication and antiplatelet therapy. Patient was not accepted to ARU. We will try SNF.CM following. If continues to improve,will also consider Home health PT as family expressed their wish to take patient home with full family support available. Discussed plan of care with Dr. Manriquez Problems: Subjective 24 Hr Interval Summary Free Text/Dictation No acute overnight episodes. Has been participating in PT,ambulated in hallway with PT. Exam/Review of Systems Vital Signs Vitals Vital Signs Date Time Temp Pulse Resp B/P Pulse Ox O2 Delivery O2 Flow Rate FiO2 12/31/16 08:03 69 12/31/16 07:38 98.3 20 120/76 94 12/30/16 15:50 Room Air Nasal Cannula 12/30/16 15:45 3.0 Intake and Output 12/30/16 12/30/16 12/31/16 15:00 23:00 07:00 Intake Total 450 ml Output Total 1200 ml 500 ml Balance -1200 ml -50 ml Exam General: Well developed,adequately built, not in any acute distress . HEENT: Normocephalic, Atraumatic, No laceration or hematoma; Eyes: PEERL, Conjunctiva clear, Anicteric sclera Neck: Supple without any lymphadenopathy, nontender, no JVD, no carotid bruits, trachea midline, no thyromegaly Cardiac: S1, S2 auscultated, regular rhythm and rate, no mumurs or gallop Pulmonary: Normal respiratory effort. Chest clear to auscultation bilaterally, no adventitious breath sounds GI: Abdomen normal to inspection. Soft, non tender, non- distended, no masses, no rebound tenderness or guarding. Bowel sounds active on all four quadrants Genitourinary: Deferred Extremities: With right-sided weakness-improving. Left/leg motor strength 5 out of 5. Right arm/leg 2/5. No cyanosis, clubbing, or edema. Pulses [2+] bilaterally. Neurologic: Severe expressive aphasia. Right facial weakness. Awake and alert. Skin: Clean,dry, and intact. No ecchymosis, no rashes, or lesions Results Result Diagram: 12/31/16 0737 12/31/16 0737 Results 24 hrs Laboratory Tests Test 12/30/16 12:22 12/30/16 13:15 12/30/16 15:14 12/30/16 17:15 White Blood Count 8.6 Red Blood Count 5.33 Hemoglobin 17.0 Hematocrit 48.1 Mean Corpuscular Volume 90.2 Mean Corpuscular Hemoglobin 31.9 Mean Corpuscular Hemoglobin Concent 35.3 Red Cell Distribution Width 13.1 Platelet Count 243 Mean Platelet Volume 10.3 Neutrophils % 67.6 Lymphocytes % 23.4 Monocytes % 6.0 Eosinophils % 2.4 Basophils % 0.3 Nucleated Red Blood Cells % 0.0 Neutrophils # 5.8 Lymphocytes # 2.0 Monocytes # 0.5 Eosinophils # 0.2 Basophils # 0.0 Nucleated Red Blood Cells # 0.0 Prothrombin Time 12.8 Prothrombin Time Ratio 1.0 INR International Normalized Ratio 0.96 Activated Partial Thromboplast Time 28.5 Bedside Glucose 118 124 110 Test 12/30/16 20:43 12/31/16 07:37 12/31/16 07:59 Bedside Glucose 162 167 White Blood Count 11.3 #H Red Blood Count 5.22 Hemoglobin 16.4 Hematocrit 47.0 Mean Corpuscular Volume 90.0 Mean Corpuscular Hemoglobin 31.4 Mean Corpuscular Hemoglobin Concent 34.9 Red Cell Distribution Width 13.3 Platelet Count 248 Mean Platelet Volume 11.1 H Neutrophils % 65.4 Lymphocytes % 24.6 Monocytes % 7.4 Eosinophils % 2.1 Basophils % 0.2 Nucleated Red Blood Cells % 0.0 Neutrophils # 7.4 Lymphocytes # 2.8 Monocytes # 0.8 Eosinophils # 0.2 Basophils # 0.0 Nucleated Red Blood Cells # 0.0 Sodium Level 139 Potassium Level 3.7 Chloride Level 100 Carbon Dioxide Level 23 Anion Gap 20 H Blood Urea Nitrogen 22 H Creatinine 0.78 Glucose Level 156 Calcium Level 9.5 Medications Medications Current Medications Aspirin (Halfprin) 81 mg DAILY PO Last administered on 12/31/16 09:21; Admin Dose 81 MG; Start 12/26/16 at 09:00 Ondansetron HCl (Zofran Inj) 4 mg Q6H PRN IV NAUSEA AND/OR VOMITING; Start at 03:30 Heparin Sodium (Porcine) (Heparin (5000 Units/0.5 ml)) 5,000 unit BID SC Last administered on 12/31/16 09:24; Admin Dose 5,000 UNIT; Start 12/26/16 at 09:00 Insulin Glargine (Lantus) 12 unit DAILY@08 SC Last administered on 12/31/16 08 :06; Admin Dose 12 UNIT; Start 12/26/16 at 08:00 Diagnostic Test (Pha) (Accu-Chek) 1 ea 02 XX ; Start 12/27/16 at 02:00 Miscellaneous Information 1 ea NOTE XX ; Start 12/26/16 at 06:00 Glucose (Glutose) 15 gm Q15M PRN PO DECREASED GLUCOSE; Start 12/26/16 at 06:00 Glucose (Glutose) 22.5 gm Q15M PRN PO DECREASED GLUCOSE; Start 12/26/16 at 06: 00 Dextrose (D50w Syringe) 25 ml Q15M PRN IV DECREASED GLUCOSE; Start 12/26/16 at 06:00 Dextrose (D50w Syringe) 50 ml Q15M PRN IV DECREASED GLUCOSE; Start 12/26/16 at 06:00 Glucagon (Glucagen) 1 mg Q15M PRN IM DECREASED GLUCOSE; Start 12/26/16 at 06:00 Glucose (Glutose) 15 gm Q15M PRN BUCCAL DECREASED GLUCOSE; Start 12/26/16 at 06 :00 Magnesium Hydroxide (Milk Of Mag) 30 ml BID PRN PO CONSTIPATION Last administered on 12/28/16 17:46; Admin Dose 30 ML; Start 12/27/16 at 07:00 Atorvastatin Calcium (Lipitor) 80 mg DAILY@21 PO Last administered on 20:45; Admin Dose 80 MG; Start 12/27/16 at 21:00 Clopidogrel Bisulfate (plaVIX) 75 mg DAILY PO Last administered on 12/31/16 09 :21; Admin Dose 75 MG; Start 12/27/16 at 17:30 Famotidine (Pepcid) 20 mg BID PO Last administered on 12/31/16 09:21; Admin Dose 20 MG; Start 12/29/16 at 21:00 NAMAN THOMPSON NP Dec 31, 2016 10:29
--- NOTE | 2016-12-31 12:25 | CONS ---
Date/Time of Note Date/Time of Note DATE: 12/31/16 TIME: 12:23 Assessment/Plan Assessment/Plan Chief Complaint/Hosp Course IMP: 1.CVA-ACute/aphasia 2.HTN 3.HL 4.DM Recc: -TTE unrevealing -now S/P LORENA with no definite findings of intra-cardiac source of embolus and no PFO or other inter-atrial septal defect -Continue plavix/asa -continue statin Problems: Consultation Date/Type/Reason Admit Date/Time Dec 26, 2016 at 00:47 Initial Consult Date 12/26/16 Type of Consultation: cardiology Reason for Consultation CVA Referring Provider: NAMAN THOMPSON NP Exam/Review of Systems Vital Signs Vitals Vital Signs Date Time Temp Pulse Resp B/P Pulse Ox O2 Delivery O2 Flow Rate FiO2 12/31/16 12:08 63 12/31/16 11:44 98.1 20 112/73 96 12/30/16 15:50 Room Air Nasal Cannula 12/30/16 15:45 3.0 Intake and Output 12/30/16 12/30/16 12/31/16 15:00 23:00 07:00 Intake Total 450 ml Output Total 1200 ml 500 ml Balance -1200 ml -50 ml Exam Review of Systems: CONSTITUTIONAL: No fevers, chills. PULMONARY: No sob CARDIOVASCULAR: No chest pain/palpitations GASTROINTESTINAL: No nausea/vomiting. GENITOURINARY: No hematuria/dysuria. MUSCULOSKELETAL: No myagias/arthalgias. PSYCHIATRIC: The patient denies depression. NEUROLOGIC: No weakness Constitutional: alert Psych: no complaints Head: normocephalic ENMT: mucosa pink and moist Neck: jvd (9 cm water), supple Respiratory: diminished breath sounds Cardiovascular: regular rate and rhythm Gastrointestinal: non-tender, soft Musculoskeletal: muscle tone (normal) Extremities: edema (none) Neurological: other (No focal deficits) Results Result Diagram: 12/31/16 0737 12/31/16 0737 Results 24 hrs Laboratory Tests Test 12/30/16 13:15 12/30/16 15:14 12/30/16 17:15 12/30/16 20:43 Bedside Glucose 118 124 110 162 Test 12/31/16 07:37 12/31/16 07:59 12/31/16 12:07 White Blood Count 11.3 #H Red Blood Count 5.22 Hemoglobin 16.4 Hematocrit 47.0 Mean Corpuscular Volume 90.0 Mean Corpuscular Hemoglobin 31.4 Mean Corpuscular Hemoglobin Concent 34.9 Red Cell Distribution Width 13.3 Platelet Count 248 Mean Platelet Volume 11.1 H Neutrophils % 65.4 Lymphocytes % 24.6 Monocytes % 7.4 Eosinophils % 2.1 Basophils % 0.2 Nucleated Red Blood Cells % 0.0 Neutrophils # 7.4 Lymphocytes # 2.8 Monocytes # 0.8 Eosinophils # 0.2 Basophils # 0.0 Nucleated Red Blood Cells # 0.0 Sodium Level 139 Potassium Level 3.7 Chloride Level 100 Carbon Dioxide Level 23 Anion Gap 20 H Blood Urea Nitrogen 22 H Creatinine 0.78 Glucose Level 156 Calcium Level 9.5 Bedside Glucose 167 160 Medications Medications Current Medications Aspirin (Halfprin) 81 mg DAILY PO Last administered on 12/31/16 09:21; Admin Dose 81 MG; Start 12/26/16 at 09:00 Ondansetron HCl (Zofran Inj) 4 mg Q6H PRN IV NAUSEA AND/OR VOMITING; Start at 03:30 Heparin Sodium (Porcine) (Heparin (5000 Units/0.5 ml)) 5,000 unit BID SC Last administered on 12/31/16 09:24; Admin Dose 5,000 UNIT; Start 12/26/16 at 09:00 Insulin Glargine (Lantus) 12 unit DAILY@08 SC Last administered on 12/31/16 08 :06; Admin Dose 12 UNIT; Start 12/26/16 at 08:00 Diagnostic Test (Pha) (Accu-Chek) 1 ea 02 XX ; Start 12/27/16 at 02:00 Miscellaneous Information 1 ea NOTE XX ; Start 12/26/16 at 06:00 Glucose (Glutose) 15 gm Q15M PRN PO DECREASED GLUCOSE; Start 12/26/16 at 06:00 Glucose (Glutose) 22.5 gm Q15M PRN PO DECREASED GLUCOSE; Start 12/26/16 at 06: 00 Dextrose (D50w Syringe) 25 ml Q15M PRN IV DECREASED GLUCOSE; Start 12/26/16 at 06:00 Dextrose (D50w Syringe) 50 ml Q15M PRN IV DECREASED GLUCOSE; Start 12/26/16 at 06:00 Glucagon (Glucagen) 1 mg Q15M PRN IM DECREASED GLUCOSE; Start 12/26/16 at 06:00 Glucose (Glutose) 15 gm Q15M PRN BUCCAL DECREASED GLUCOSE; Start 12/26/16 at 06 :00 Magnesium Hydroxide (Milk Of Mag) 30 ml BID PRN PO CONSTIPATION Last administered on 12/28/16 17:46; Admin Dose 30 ML; Start 12/27/16 at 07:00 Atorvastatin Calcium (Lipitor) 80 mg DAILY@21 PO Last administered on 20:45; Admin Dose 80 MG; Start 12/27/16 at 21:00 Clopidogrel Bisulfate (plaVIX) 75 mg DAILY PO Last administered on 12/31/16 09 :21; Admin Dose 75 MG; Start 12/27/16 at 17:30 Famotidine (Pepcid) 20 mg BID PO Last administered on 12/31/16 09:21; Admin Dose 20 MG; Start 12/29/16 at 21:00 MATTHIEU TAYLOR Dec 31, 2016 12:25
[2016-12-31] MEDS ORDERED: LIDOCAINE 2% (SDV) 5 ML INJ ONE (18:02)
[2016-12-31] MEDS ORDERED: PROPOFOL 40 ML ONE (18:02)
[2016-12-31] MEDS ORDERED: LOPERAMIDE 2 MG CAP PO ONE (20:00)
[2016-12-31] MEDS: ATORVASTATIN 80 MG TAB PO SCH (20:52)
[2017-01-01] VITALS (9 sets, daily range): BP systolic 108–123; BP diastolic 67–79; PULSE 46–60; RESP 16–68
[2017-01-01] MEDS: ACCU-CHEK XX SCH (02:00)
[2017-01-01 07:04] LABS: BASOPHILS % 0.3 % (0.0-2.0); EOSINOPHILS # 0.3 10^3/ul (0.0-0.5); EOSINOPHILS % 4.1 % (0.0-7.0); LYMPHOCYTES # 2.8 10^3/ul (0.8-2.9); LYMPHOCYTES % 37.8 % (15.0-51.0); MEAN CORPUSCULAR HEMOGLOBIN 31.8 pg (29.0-33.0); MEAN CORPUSCULAR HGB CONC 34.9 g/dl (32.0-37.0); MEAN CORPUSCULAR VOLUME 91.1 fl (82.0-101.0); MEAN PLATELET VOLUME 10.6 fl (7.4-10.4); MONOCYTE # 0.6 10^3/ul (0.3-0.9); MONOCYTES % 7.8 % (0.0-11.0); NEUTROPHIL # 3.6 10^3/ul (1.6-7.5); NEUTROPHILS % 49.7 % (39.0-77.0); PLATELET COUNT 230 10^3/UL (140-415); RED BLOOD COUNT 4.72 10^6/ul (4.70-6.10); WHITE BLOOD COUNT 7.3 10^3/ul (4.8-10.8)
[2017-01-01 07:32] LABS: CALCIUM 9.2 mg/dl (8.4-10.2); CREATININE 0.86 mg/dl (0.61-1.24); POTASSIUM 3.7 mmol/L (3.5-5.1)
[2017-01-01] MEDS: INSULIN ASPART [NOVOLOG] 3 ML PEN SC SCH ×2 (07:55→12:26)
[2017-01-01] MEDS: INSULIN GLARGINE [LANtus] 3 ML PEN SC SCH (08:28)
[2017-01-01] MEDS: CLOPIDOGREL 75 MG TAB PO SCH (09:26)
[2017-01-01] MEDS: ASPIRIN (EC) 81 MG TAB PO SCH (09:26)
[2017-01-01] MEDS: FAMOTIDINE 20 MG TAB PO SCH (09:26)
[2017-01-01] MEDS: HEPARIN 5,000 UNIT/0.5 ML VIAL SC SCH (09:45)
--- NOTE | 2017-01-01 10:14 | PN ---
Date/Time of Note Date/Time of Note DATE: 01/01/17 TIME: 10:11 Assessment/Plan VTE Prophylaxis VTE Prophylaxis Intervention: heparin Lines/Catheters IV [facility]ter Type (from [facility]): [facility] Urinary Cath still in place: No Assessment/Plan Chief Complaint/Hosp Course 1. Acute CVA with right sided weakness and expressive aphasia. Symptoms improved. 12/26/2016. 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 01/01/2017. LORENA negative for any cardiac sources. -Neurology on board. Recommended 90 day dual antiplatelet therapy followed by Plavix 75 thereafter. -Continue with PT/OT/ST 2. Diabetes. A1c at 8.3. -Continue insulin regimen. -Carb controlled diet. -Diabetic education for providing glucometer and other education/resources upon discharge. -Patient also needs metformin upon discharge. 3. Hypercholesterolemia. -On statin 4.Essential HTN. -Currently BP desired range.Will f/u with cards recs on initiation of antihypertensives. 5. Debility secondary to #1. Improved. - Continue with physical therapy. DVT prophylaxis: Heparin subcu PUD prophylaxis : Pepcid. Disposition and plan: Continue with PT/OT/ST as well as statin medication and antiplatelet therapy. Patient was not accepted to ARU. Case management following for arranging SNF placement. Discussed plan of care with Dr. Maradiaga Problems: Cont'd Hospitalization Reason: Placement issues Subjective 24 Hr Interval Summary Free Text/Dictation Overall, patient feels better. Good participation in physical therapy. Exam/Review of Systems Vital Signs Vitals Vital Signs Date Time Temp Pulse Resp B/P Pulse Ox O2 Delivery O2 Flow Rate FiO2 01/01/17 08:12 46 01/01/17 07:14 97.9 16 123/75 99 12/30/16 15:50 Room Air Nasal Cannula 12/30/16 15:45 3.0 Intake and Output 12/31/16 12/31/16 01/01/17 15:00 23:00 07:00 Intake Total 750 ml 250 ml Output Total 700 ml 330 ml Balance 50 ml -80 ml Exam General: Well developed,adequately built, not in any acute distress . HEENT: Normocephalic, Atraumatic, No laceration or hematoma; Eyes: PEERL, Conjunctiva clear, Anicteric sclera Neck: Supple without any lymphadenopathy, nontender, no JVD, no carotid bruits, trachea midline, no thyromegaly Cardiac: S1, S2 auscultated, regular rhythm and rate, no mumurs or gallop Pulmonary: Normal respiratory effort. Chest clear to auscultation bilaterally, no adventitious breath sounds GI: Abdomen normal to inspection. Soft, non tender, non- distended, no masses, no rebound tenderness or guarding. Bowel sounds active on all four quadrants Genitourinary: Deferred Extremities: With right-sided weakness-improving. Left/leg motor strength 5 out of 5. Right arm/leg 2/5. No cyanosis, clubbing, or edema. Pulses [2+] bilaterally. Neurologic: Severe expressive aphasia. Right facial weakness. Awake and alert. Skin: Clean,dry, and intact. No ecchymosis, no rashes, or lesions Results Result Diagram: 01/01/17 0645 01/01/17 0645 Results 24 hrs Laboratory Tests Test 12/31/16 12:07 12/31/16 17:26 12/31/16 21:05 01/01/17 06:45 Bedside Glucose 160 127 131 White Blood Count 7.3 # Red Blood Count 4.72 Hemoglobin 15.0 Hematocrit 43.0 Mean Corpuscular Volume 91.1 Mean Corpuscular Hemoglobin 31.8 Mean Corpuscular Hemoglobin Concent 34.9 Red Cell Distribution Width 13.0 Platelet Count 230 Mean Platelet Volume 10.6 H Neutrophils % 49.7 Lymphocytes % 37.8 Monocytes % 7.8 Eosinophils % 4.1 Basophils % 0.3 Nucleated Red Blood Cells % 0.0 Neutrophils # 3.6 Lymphocytes # 2.8 Monocytes # 0.6 Eosinophils # 0.3 Basophils # 0.0 Nucleated Red Blood Cells # 0.0 Sodium Level 140 Potassium Level 3.7 Chloride Level 99 Carbon Dioxide Level 28 Anion Gap 17 H Blood Urea Nitrogen 19 Creatinine 0.86 Glucose Level 117 Calcium Level 9.2 Test 01/01/17 08:19 Bedside Glucose 115 Medications Medications Current Medications Aspirin (Halfprin) 81 mg DAILY PO Last administered on 01/01/17t 09:26; Admin Dose 81 MG; Start 12/26/16 at 09:00 Ondansetron HCl (Zofran Inj) 4 mg Q6H PRN IV NAUSEA AND/OR VOMITING; Start at 03:30 Heparin Sodium (Porcine) (Heparin (5000 Units/0.5 ml)) 5,000 unit BID SC Last administered on 01/01/17 09:45; Admin Dose 5,000 UNIT; Start 12/26/16 at 09:00 Insulin Glargine (Lantus) 12 unit DAILY@08 SC Last administered on 01/01/17 08 :28; Admin Dose 12 UNIT; Start 12/26/16 at 08:00 Diagnostic Test (Pha) (Accu-Chek) 1 ea 02 XX ; Start 12/27/16 at 02:00 Miscellaneous Information 1 ea NOTE XX ; Start 12/26/16 at 06:00 Glucose (Glutose) 15 gm Q15M PRN PO DECREASED GLUCOSE; Start 12/26/16 at 06:00 Glucose (Glutose) 22.5 gm Q15M PRN PO DECREASED GLUCOSE; Start 12/26/16 at 06: 00 Dextrose (D50w Syringe) 25 ml Q15M PRN IV DECREASED GLUCOSE; Start 12/26/16 at 06:00 Dextrose (D50w Syringe) 50 ml Q15M PRN IV DECREASED GLUCOSE; Start 12/26/16 at 06:00 Glucagon (Glucagen) 1 mg Q15M PRN IM DECREASED GLUCOSE; Start 12/26/16 at 06:00 Glucose (Glutose) 15 gm Q15M PRN BUCCAL DECREASED GLUCOSE; Start 12/26/16 at 06 :00 Magnesium Hydroxide (Milk Of Mag) 30 ml BID PRN PO CONSTIPATION Last administered on 12/28/16 17:46; Admin Dose 30 ML; Start 12/27/16 at 07:00 Atorvastatin Calcium (Lipitor) 80 mg DAILY@21 PO Last administered on 20:52; Admin Dose 80 MG; Start 12/27/16 at 21:00 Clopidogrel Bisulfate (plaVIX) 75 mg DAILY PO Last administered on 01/01/17 09 :26; Admin Dose 75 MG; Start 12/27/16 at 17:30 Famotidine (Pepcid) 20 mg BID PO Last administered on 01/01/17 09:26; Admin Dose 20 MG; Start 12/29/16 at 21:00 NAMAN THOMPSON NP Jan 01, 2017 10:14
--- NOTE | 2017-01-01 13:32 | CONS ---
Date/Time of Note Date/Time of Note DATE: 01/01/17 TIME: 13:31 Assessment/Plan Assessment/Plan Chief Complaint/Hosp Course IMP: 1.CVA-ACute/aphasia 2.HTN 3.HL 4.DM Recc: -TTE unrevealing -now S/P LORENA with no definite findings of intra-cardiac source of embolus and no PFO or other inter-atrial septal defect -Continue plavix/asa -continue statin -ongoing neuro eval and treatment Problems: Consultation Date/Type/Reason Admit Date/Time Dec 26, 2016 at 00:47 Initial Consult Date 12/26/16 Type of Consultation: cardiology Reason for Consultation bradycardia/CVA Referring Provider: NAMAN THOMPSON NP Exam/Review of Systems Vital Signs Vitals Vital Signs Date Time Temp Pulse Resp B/P Pulse Ox O2 Delivery O2 Flow Rate FiO2 01/01/17 12:12 59 01/01/17 11:48 98.4 68 123/79 92 12/30/16 15:50 Room Air Nasal Cannula 12/30/16 15:45 3.0 Intake and Output 12/31/16 12/31/16 01/01/17 15:00 23:00 07:00 Intake Total 750 ml 250 ml Output Total 700 ml 330 ml Balance 50 ml -80 ml Exam Review of Systems: CONSTITUTIONAL: No fevers, chills. PULMONARY: No sob CARDIOVASCULAR: No chest pain/palpitations GASTROINTESTINAL: No nausea/vomiting. GENITOURINARY: No hematuria/dysuria. MUSCULOSKELETAL: No myagias/arthalgias. PSYCHIATRIC: The patient denies depression. NEUROLOGIC: aphasic Constitutional: other (sleeping) Head: normocephalic Neck: jvd (8-9 cm water), supple Respiratory: diminished breath sounds (at bases/B) Cardiovascular: regular rate and rhythm Gastrointestinal: non-tender, soft Musculoskeletal: muscle tone (normal) Extremities: edema (none) Neurological: other (aphasic) Results Result Diagram: 01/01/17 0645 01/01/17 0645 Results 24 hrs Laboratory Tests Test 12/31/16 17:26 12/31/16 21:05 01/01/17 06:45 01/01/17 08:19 Bedside Glucose 127 131 115 White Blood Count 7.3 # Red Blood Count 4.72 Hemoglobin 15.0 Hematocrit 43.0 Mean Corpuscular Volume 91.1 Mean Corpuscular Hemoglobin 31.8 Mean Corpuscular Hemoglobin Concent 34.9 Red Cell Distribution Width 13.0 Platelet Count 230 Mean Platelet Volume 10.6 H Neutrophils % 49.7 Lymphocytes % 37.8 Monocytes % 7.8 Eosinophils % 4.1 Basophils % 0.3 Nucleated Red Blood Cells % 0.0 Neutrophils # 3.6 Lymphocytes # 2.8 Monocytes # 0.6 Eosinophils # 0.3 Basophils # 0.0 Nucleated Red Blood Cells # 0.0 Sodium Level 140 Potassium Level 3.7 Chloride Level 99 Carbon Dioxide Level 28 Anion Gap 17 H Blood Urea Nitrogen 19 Creatinine 0.86 Glucose Level 117 Calcium Level 9.2 Test 01/01/17 12:15 Bedside Glucose 164 Medications Medications Current Medications Aspirin (Halfprin) 81 mg DAILY PO Last administered on 01/01/17 09:26; Admin Dose 81 MG; Start 12/26/16 at 09:00 Ondansetron HCl (Zofran Inj) 4 mg Q6H PRN IV NAUSEA AND/OR VOMITING; Start at 03:30 Heparin Sodium (Porcine) (Heparin (5000 Units/0.5 ml)) 5,000 unit BID SC Last administered on 01/01/17 09:45; Admin Dose 5,000 UNIT; Start 12/26/16 at 09:00 Insulin Glargine (Lantus) 12 unit DAILY@08 SC Last administered on 01/01/17 08 :28; Admin Dose 12 UNIT; Start 12/26/16 at 08:00 Diagnostic Test (Pha) (Accu-Chek) 1 ea 02 XX ; Start 12/27/16 at 02:00 Miscellaneous Information 1 ea NOTE XX ; Start 12/26/16 at 06:00 Glucose (Glutose) 15 gm Q15M PRN PO DECREASED GLUCOSE; Start 12/26/16 at 06:00 Glucose (Glutose) 22.5 gm Q15M PRN PO DECREASED GLUCOSE; Start 12/26/16 at 06: 00 Dextrose (D50w Syringe) 25 ml Q15M PRN IV DECREASED GLUCOSE; Start 12/26/16 at 06:00 Dextrose (D50w Syringe) 50 ml Q15M PRN IV DECREASED GLUCOSE; Start 12/26/16 at 06:00 Glucagon (Glucagen) 1 mg Q15M PRN IM DECREASED GLUCOSE; Start 12/26/16 at 06:00 Glucose (Glutose) 15 gm Q15M PRN BUCCAL DECREASED GLUCOSE; Start 12/26/16 at 06 :00 Magnesium Hydroxide (Milk Of Mag) 30 ml BID PRN PO CONSTIPATION Last administered on 12/28/16 17:46; Admin Dose 30 ML; Start 12/27/16 at 07:00 Atorvastatin Calcium (Lipitor) 80 mg DAILY@21 PO Last administered on 20:52; Admin Dose 80 MG; Start 12/27/16 at 21:00 Clopidogrel Bisulfate (plaVIX) 75 mg DAILY PO Last administered on 01/01/17 09 :26; Admin Dose 75 MG; Start 12/27/16 at 17:30 Famotidine (Pepcid) 20 mg BID PO Last administered on 01/01/17 09:26; Admin Dose 20 MG; Start 12/29/16 at 21:00 MATTHIEU TAYLOR Jan 01, 2017 13:32
--- NOTE | 2017-01-01 15:44 | DS ---
Date/Time of Note Date/Time of Note DATE: 01/01/17 TIME: 15:39 Discharge Summary Admission/Discharge Info Admit Date/Time Dec 26, 2016 at 00:47 Discharge Date/Time Discharge Diagnosis 1. Acute CVA with right sided weakness and expressive aphasia. 2. Diabetes. A1c at 8.3. 3. Hypercholesterolemia. 4.Essential HTN. 5. Debility secondary to #1. Improved. Patient Condition: Stable Consults , neurology Dr. Hahn, cardiology Procedures 12/25/2016. CT head without contrast IMPRESSION: 1. Asymmetric white matter hypodensity involving the left anterior frontal lobe , as well as the left sub insular white matter, which is nonspecific. This may be related to asymmetric chronic microangiopathic changes, however underlying infarct is not excluded. MRI is recommended for further evaluation. 2. No intracranial hemorrhage, extra-axial fluid collection, mass lesion or hydrocephalous. 3. Mild peripheral and central cerebral volume loss. 12/26/2016. MRI brain without contrast IMPRESSION: 1. Acute/recent left AUREA territory infarcts. 2. Mild generalized volume loss vessel ischemic changes. 3. Chronic right thalamic lacunar infarct. 4. Absence of normal flow void in the intracranial left vertebral artery. See separate MRA brain report for additional details. 12/26/2016. MRA neck without contrast cervical arterial occlusion or hemodynamically significant stenosis identified. 12/26/2016. MRI brain without contrast. IMPRESSION: 1. 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 2. 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 Hx of Present Illness This is a 61-year-old male with a history of diabetes who presented to the emergency department for altered mentation, right-sided weakness and inability to speak. Patient is currently completely aphasic and as such information is gathered from chart review and from his who is at the bedside. She stated that her in the morning actually around lunchtime she noticed that patient was not speaking at all. She also noted that he had difficulty walking as well as holding anything on his right hand. She denied history of stroke in the past. When the patient presented to the ER, CT scan of the head shows asymmetric hypodensity involving the left anterior frontal lobe, which could indicate chronic microangiopathic ischemic change versus infarct. Chest x-ray shows 7.5 mm left lower lung pulmonary nodule. Patient was given aspirin while in the ER. . Hospital Course This is a 61-year-old unfortunate male with a past medical history of type 2 diabetes, hypertension, hypercholesterolemia, who essentially ran out of his medications and was not being followed up with the primary care doctor due to insurance reasons. He presented to the emergency room with a new onset of right -sided weakness with loss of speech and facial droop. In the emergency room, CT showed hypodensity of left anterior frontal lobe. Patient was out of window time and was not a candidate for thrombolytics. He was given aspirin and was admitted for further evaluation. MRI showed acute recent left AUREA territory infarct. Neurology consult was called. Patient was started on dual antiplatelet with aspirin and Plavix. He was also given high density Lipitor. A1c was 8.3 and he was continued on Accu- Cheks and insulin sliding scale. Diabetic education was also requested. A cardiology consultation was called to rule out cardiac thrombus. Patient had undergone LORENA and there was no definitive diagnosis for cardiac thrombus. Imaging studies did not reveal any cervical arterial occlusion. Patient was continued on physical therapy/speech therapy and occupational therapy services. He was slowly retaining strength on his right side. Patient was able to tolerate ambulate patient with PT assist. He remained alert oriented 4 with expressive aphasia. Blood pressure remained stable and he did not need any antihypertensives per cardiology. At this time, patient does not need any further acute inpatient workup and he would per neurology standpoint. Recommendation was to continue antiplatelet and continued physical therapy activity for functional regain. Patient was subsequently accepted to ARU for further physical therapy follow-up and rehabilitation. Disposition: Patient will be discharged to acute rehab unit. Condition at time of discharge is stable. Approximately 60 minutes was spent in coordinating the discharge on this patient. Case discussed with [facility] Active Scripts Metformin* (Glucophage*) 500 Mg Tab, 500 MG PO WITH BREAKFAST DINNE, #30 TAB Prov:THOMPSON,NAMAN V. PLAN MANAGER 01/01/17 Insulin Aspart* (Novolog Insulin Pen*) 100 Unit/Ml Soln, 0 UNIT SC WITH MEALS BEDTIME, #30 Prov:THOMPSON,NAMAN V. PLAN MANAGER 01/01/17 Insulin Glargine* (Lantus*) 100 Unit/Ml Soln, 12 UNIT SC DAILY@08, #30 Prov:THOMPSON,NAMAN V. PLAN MANAGER 01/01/17 Aspirin* (Aspirin* EC) 81 Mg Tablet.dr, 81 MG PO DAILY, #90 Take up to 90 days and thereafter continue Plavix ONLY Prov:NAMAN THOMPSON V. PLAN MANAGER 01/01/17 Atorvastatin* (Atorvastatin*) 80 Mg Tablet, 80 MG PO DAILY@21, #30 TAB Prov:VALERIE THOMPSONA V. PLAN MANAGER 01/01/17 Heparin Sod (Porcine)* (Heparin*) 5,000 Unit/0.5 Ml Soln, 5000 UNIT SC BID, #30 Prov:THOMPSONVALERIEA V. PLAN MANAGER 01/01/17 Clopidogrel Bisulfate (Clopidogrel) 75 Mg Tablet, 75 MG PO DAILY, #30 TAB Prov:NAMAN THOMPSON V. PLAN MANAGER 01/01/17 Follow-up Plan Discharge Instructions CONDITION Patient Condition: Stable HOME CARE INSTRUCTIONS: Special Diet: Carbohydrate controlled, low-fat, low-cholesterol diet FOLLOW UP/APPOINTMENTS Follow-up Plan Patient is being transferred to acute rehabilitation unit and will be followed up with the rehab MD Primary Care Provider Care Physician Danielle Primary Pending Labs Laboratory Tests Test 12/31/16 17:26 12/31/16 21:05 01/01/17 06:45 01/01/17 08:19 Bedside Glucose 127mg/dL (70-220) 131mg/dL (70-220) 115mg/dL (70-220) White Blood Count 7.310^3/ul (4.8-10.8) Red Blood Count 4.7210^6/ul (4.70-6.10) Hemoglobin 15.0g/dl (14.0-18.0) Hematocrit 43.0% (42.0-52.0) Mean Corpuscular Volume 91.1fl (82.0-101.0) Mean Corpuscular Hemoglobin 31.8pg (29.0-33.0) Mean Corpuscular Hemoglobin Concent 34.9g/dl (32.0-37.0) Red Cell Distribution Width 13.0% (11.5-14.5) Platelet Count 37432^3/UL (140-415) Mean Platelet Volume 10.6fl (7.4-10.4) Neutrophils % 49.7% (39.0-77.0) Lymphocytes % 37.8% (15.0-51.0) Monocytes % 7.8% (0.0-11.0) Eosinophils % 4.1% (0.0-7.0) Basophils % 0.3% (0.0-2.0) Nucleated Red Blood Cells % 0.0/100WBC (0.0-0.0) Neutrophils # 3.610^3/ul (1.6-7.5) Lymphocytes # 2.810^3/ul (0.8-2.9) Monocytes # 0.610^3/ul (0.3-0.9) Eosinophils # 0.310^3/ul (0.0-0.5) Basophils # 0.010^3/ul (0.0-0.1) Nucleated Red Blood Cells # 0.010^3/ul (0.0-0.0) Sodium Level 140mmol/L (135-144) Potassium Level 3.7mmol/L (3.5-5.1) Chloride Level 99mmol/L (97-110) Carbon Dioxide Level 28mmol/L (21-31) Anion Gap 17 (8-16) Blood Urea Nitrogen 19mg/dl (7-20) Creatinine 0.86mg/dl (0.61-1.24) Glucose Level 117mg/dl (70-220) Calcium Level 9.2mg/dl (8.4-10.2) Test 01/01/17 12:15 Bedside Glucose 164mg/dL (70-220) Microbiology Date/Time Source Procedure Growth Status 12/31/16 15:45 Feces Clostridium difficile Toxin Assay - Final Complete NAMAN THOMPSON NP Jan 01, 2017 15:44
--- NOTE | 2017-01-01 15:45 | PDOCDIS ---
Discharge Instructions CONDITION Patient Condition: Stable HOME CARE INSTRUCTIONS: Special Diet: Carbohydrate controlled, low-fat, low-cholesterol diet FOLLOW UP/APPOINTMENTS Follow-up Plan Patient is being transferred to acute rehabilitation unit and will be followed up with the rehab NAMAN GUTIERREZ NP Jan 01, 2017 15:45 FOLLOW UP/APPOINTMENTS Follow-up Plan Patient is being transferred to acute rehabilitation unit and will be followed up with the rehab NAMAN GUTIERREZ NP Jan 01, 2017 15:45
[2017-01-01] MEDS ORDERED: ASPI-664 PO (15:48)
[2017-01-01] MEDS ORDERED: METF500T4 PO (15:48)
[2017-01-01] MEDS ORDERED: CLOP75TA28 PO (15:48)
[2017-01-01] MEDS ORDERED: ATOR80TA75 PO (15:48)
[2017-01-01] MEDS ORDERED: LANT3I SC (15:48)
[2017-01-01] MEDS ORDERED: NOVO3I SC (15:48)
[2017-01-01] MEDS ORDERED: HEP5KI SC (15:48)
[2017-01-01] MEDS ORDERED: metFORMIN 500 MG TAB PO SCH (17:25)
--- NOTE | 2017-01-02 07:44 | CARRPT ---
DATE OF PROCEDURE: 12/30/2016 PROCEDURES: 1. Transesophageal echo. 2. MAC anesthesia and drugs of anesthesiologist at bedside. ATTENDING PHYSICIAN: Dr. Saud Hahn. BRIEF HISTORY/HOSPITAL COURSE: Mr. Cervantes is a 61-year-old male with a history of hypertension who initially presented with stroke symptoms, diagnosed with acute CVA. The patient underwent transesophageal echo to assess for possible intracardiac source of embolus, which was unrevealing. He has now been referred by Neurology for transesophageal echo to assess for any possible intra-cardiac source of embolus. PROCEDURE: After informed consent was obtained, the patient was taken to the operative suite to the cardiac operations label clerk holding room. He is on continuous telemetry monitoring, O2 saturation monitoring, and blood pressure cuff cycling every 3 minutes. The patient had a bite valve placed in his mouth and was given MAC anesthesia with Propofol under the direction of anesthesiologist at bedside. The patient, after receiving adequate anesthesia, had the esophagus intubated with transesophageal probe, using imaging and Doppler interrogation. The patient's cardiac structures were adequately interrogated. The patient's proximal descending transverse and ascending artery were then interrogated. The probe was removed. The patient was allowed to awake from his anesthetized state to complete the procedure. There were no complications. FINDINGS: 1. No definite left atrial appendage thrombus. No spontaneous contrast within the left atrium noted. Left atrial appendage velocity greater than 50 cm per second. 2. No definite findings of patent foramen ovale or other intra- atrial septal defect by color flow Doppler and agitated saline contrast injection. 3. Normal-appearing aorta per vascular apparatus with trace aortic regurgitation. 4. Normal-appearing mitral valve apparatus with mild mitral regurgitation. 5. Normal-appearing tricuspid apparatus with trace to mild tricuspid regurgitation. 6. Pulmonic valve poorly visualized. 7. Very mild atherosclerotic pocking in the patient's proximal descending, transverse, and ascending aorta. 8. Grossly normal left ventricular size and systolic function with no definite findings of intraventricular source of embolus. IMPRESSION: No definite findings of intracardiac source for embolus, and no findings of patent foramen ovale or other atrial septal defect. RECOMMENDATIONS: In light of procedural findings, at this time would need alternative sources of embolus and etiology of CVA. Continue the patient's aspirin and Plavix. Dictated By: Saud Hahn, Medical /fnt/grs /Document#: [id number] CC: Ela Souza MD;*[facility]*
== END 2017-01-01 18:10 | DRG 65 ==
LOC: E/R 21:12 → TEL 12-26 00:47
PROVIDERS: ADMIT Internal Medicine; ATTEND Internal Medicine
PROC: B24BZZ4 Ultrasonography of Heart with Aorta, Transesophageal (ICD-10-PCS; principal; 2016-12-30 14:30)
DX: I63.522 Cerebral infarction due to unspecified occlusion or stenosis of left anterior cerebral artery (principal); E87.0 Hyperosmolality and hypernatremia; G81.91 Hemiplegia, unspecified affecting right dominant side; R47.01 Aphasia; R48.2 Apraxia; R29.810 Facial weakness; R53.1 Weakness; E78.00 Pure hypercholesterolemia, unspecified; E11.9 Type 2 diabetes mellitus without complications
CPT/HCPCS: 70450; 70544; 70549; 70551; 71010; 71260; 80048; 80053; 80061; 80307; 81001; 82962; 83036; 83735; 84100; 84443; 84484; 85025; 85610; 85730; 87075; 92507; 92523; 92610; 93005; 93306; 93312; 93325; 97003; 97110; 97116; 97162; 97166; 97530; 97535; J1644; J1815; Q9967

== ENCOUNTER 2017-01-01 18:30 | Inpatient (IN) | payer MEDICAID ==
[~2017-01-01] VITALS: Ht 165.1 cm; Wt 72.0 kg
[~2017-01-01 18:30] MED LIST: ASPI-664 PO; ATOR80TA75 PO; CLOP75TA28 PO; HEP5KI SC; LANT3I SC; METF500T4 PO; NOVO3I SC
[2017-01-01 19:30] VITALS: Ht 165.1 cm; Wt 72.0 kg
[2017-01-01] MEDS ORDERED: GLUCOSE GEL 15 GRAM TUBE PO PRN ×2 (21:00)
[2017-01-01] MEDS ORDERED: GLUCOSE GEL 15 GRAM TUBE BUCCAL PRN (21:00)
[2017-01-01] MEDS ORDERED: GLUCAGON 1 MG INJ IM PRN (21:00)
[2017-01-01] MEDS ORDERED: MAGNESIUM HYDROXIDE 30ML CUP PO PRN (21:00)
[2017-01-01] MEDS ORDERED: DEXTROSE 50% 50 ML SYRINGE IV PRN ×2 (21:00)
[2017-01-01] MEDS: ATORVASTATIN 80 MG TAB PO SCH (21:13)
[2017-01-01] MEDS: HEPARIN 5,000 UNIT/0.5 ML VIAL SC SCH (21:14)
[2017-01-01] MEDS: INSULIN ASPART [NOVOLOG] 3 ML PEN SC SCH (21:19)
[2017-01-02 01:41] VITALS: BP 121/67; RESP 18
[2017-01-02 02:00] VITALS: BP 128/70; RESP 18
[2017-01-02] MEDS: ACCU-CHEK XX SCH (02:00)
[2017-01-02] MEDS ORDERED: ACETAMINOPHEN 325 MG TAB PO PRN (05:47)
[2017-01-02 07:22] LABS: BASOPHILS % 0.4 % (0.0-2.0); EOSINOPHILS # 0.4 10^3/ul (0.0-0.5); EOSINOPHILS % 4.3 % (0.0-7.0); HEMATOCRIT 43.4 % (42.0-52.0); HEMOGLOBIN 14.9 g/dl (14.0-18.0); LYMPHOCYTES # 2.9 10^3/ul (0.8-2.9); LYMPHOCYTES % 35.6 % (15.0-51.0); MEAN CORPUSCULAR HEMOGLOBIN 31.2 pg (29.0-33.0); MEAN CORPUSCULAR HGB CONC 34.3 g/dl (32.0-37.0); MEAN CORPUSCULAR VOLUME 90.8 fl (82.0-101.0); MEAN PLATELET VOLUME 10.9 fl (7.4-10.4); MONOCYTE # 0.6 10^3/ul (0.3-0.9); MONOCYTES % 7.6 % (0.0-11.0); NEUTROPHIL # 4.2 10^3/ul (1.6-7.5); NEUTROPHILS % 51.9 % (39.0-77.0); PLATELET COUNT 241 10^3/UL (140-415); RED BLOOD COUNT 4.78 10^6/ul (4.70-6.10); RED CELL DISTRIBUTION WIDTH 12.9 % (11.5-14.5); WHITE BLOOD COUNT 8.1 10^3/ul (4.8-10.8)
[2017-01-02 07:30] VITALS: BP 121/73; RESP 20
[2017-01-02] MEDS: INSULIN ASPART [NOVOLOG] 3 ML PEN SC SCH ×4 (07:35→21:00)
[2017-01-02] MEDS: INSULIN GLARGINE [LANtus] 3 ML PEN SC SCH (08:14)
[2017-01-02] MEDS: CLOPIDOGREL 75 MG TAB PO SCH (08:38)
[2017-01-02] MEDS: DOCUSATE SODIUM 100 MG CAP PO SCH ×2 (08:38→21:38)
[2017-01-02] MEDS: metFORMIN 500 MG TAB PO SCH ×2 (08:38→18:12)
[2017-01-02] MEDS: ASPIRIN (EC) 81 MG TAB PO SCH (08:38)
[2017-01-02] MEDS: HEPARIN 5,000 UNIT/0.5 ML VIAL SC SCH ×2 (08:53→21:41)
[2017-01-02 09:12] LABS: ALBUMIN/GLOBULIN RATIO 1.21; BILIRUBIN,INDIRECT 1.4 mg/dl (0-1.1); BILIRUBIN,TOTAL 1.4 mg/dl (0.2-1.3); CALCIUM 9.1 mg/dl (8.4-10.2); CREATININE 0.82 mg/dl (0.61-1.24); POTASSIUM 3.5 mmol/L (3.5-5.1); TOTAL PROTEIN 7.3 g/dl (6.1-8.1)
--- NOTE | 2017-01-02 09:37 | CONS ---
Date/Time of Note Date/Time of Note DATE: 01/02/17 TIME: 09:33 Assessment/Plan Assessment/Plan Additional Assessment/Plan REHABILITATION POST-ADMISSION PHYSICIAN EVALUATION: REHABILITATION IMPAIRMENT CATEGORY: Left AUREA infarct CVA with Right sided weakness ACTIVE COMORBIDITIES: 1. Aphasia and Dysphagia 2. Diabetes Mellitus type 2 3. Hypertension 4. Hypercholesterolemia 5. Impairments in self-care, mobility and cognition, and communication PLAN: The patient has been admitted for comprehensive interdisciplinary acute rehab and is anticipated to tolerate 3 hours of daily therapy in divided doses for at least 5/7 days a week. The treatment plan will include: 1. Physical therapy to focus on bed mobility, transfers, and household ambulation with the goal of having the patient reach a standby assist for ambulation. 2. Occupational therapy to focus on hygiene, grooming, dressing, bathing, and toileting activities with the goal of having the patient reach a standby assist level. 3. Speech therapy for full cognitive and communication assessment and retraining in addition to dysphagia management with the goal of having the patient return to baseline cognition, express basic needs and meet nutritional needs by mouth. 4. Rehabilitation nursing for carryover of therapeutic interventions, the goal of continent of bowel and bladder, the goal of pain adequately managed on oral medications. ESTIMATED LENGTH OF STAY: 14 days. DISPOSITION GOAL: Home. Rehabilitation Barrier: Communication Intervention for barrier: Speech Therapy I acknowledge that I performed a full physical examination on this patient within 24 hours of admission to the rehabilitation unit and believe the patient is a good candidate for comprehensive interdisciplinary rehab care and is anticipated to make reasonable goals in a reasonable period of time as outlined above. Consultation Date/Type/Reason Admit Date/Time Jan 01, 2017 at 18:30 Hx of Present Illness Patient is a pleasant 61-year-old right-handed male diabetes mellitus hypertension and hypercholesterolemia who presented with altered mental status right-sided weakness and expressive aphasia. Head CT was performed and was negative for bleed. An MRI demonstrated a recent left AUREA territory infarct. Patient was started on aspirin and Plavix. Patient noted to have significant impairments in self-care mobility as compared to baseline and has been cleared to transfer to the rehabilitation unit for comprehensive interdisciplinary rehab care. Constitutional: No chills, No diaphoresis, No disoriented, No febrile, No improved, No no complaints, No other, No poor po, No requiring IVF, No requiring O2 Eyes: No discharge, No no complaints, No other, No pain, No redness, No visual change ENT: No bleeding, No congestion, No discharge, No dysphagia, No no complaints, No other, No pain, No sore throat Respiratory: No cough, No no complaints, No other, No pain, No pleuritic pain, No shortness of breath, No sputum, No wheezing Cardiovascular: No chest pain, No edema, No lightheadedness, No no complaints, No orthopenea, No other, No palpitations, No paroxysmal nocturnal dyspnea Gastrointestinal: No blood, No constipation, No decreased appetite, No diarrhea , No flatus, No nausea, No no complaints, No other, No pain, No passing stool, No vomiting Genitourinary: No bleeding, No discharge, No dysuria, No flank pain, No hematuria, No no complaints, No other Past Medical History FUNCTIONAL HISTORY: Prior to recent events, the patient was independent in self-care tasks and mobility. Currently, patient requires moderate assist for self-care and mobility tasks. I have reviewed the preadmission screen and the patient's current functional status is consistent with the preadmission screen. SOCIAL HISTORY: The patient lives at home and hopes to return there upon discharge Social History Smoking Status: Never smoker Exam/Review of Systems Vital Signs Vitals Vital Signs Date Time Temp Pulse Resp B/P Pulse Ox O2 Delivery O2 Flow Rate FiO2 01/02/17 02:00 98.3 75 18 128/70 97 Intake and Output 01/01/17 01/01/17 01/02/17 15:00 23:00 07:00 Intake Total 830 ml Output Total 200 ml Balance 630 ml Exam Neurologically the patient is awake and alert and is able to follow simple one- step commands. He does demonstrate some perseveration to task. He he has notable expressive aphasia He has good strength in left upper and lower extremity. He has antigravity strength in the right upper and lower extremity. He has impaired dynamic balance Constitutional: non-verbal Head: No atraumatic, No hematomas, No lacerations, No normocephalic, No other Eyes: No EOMI, No PERRL, No fundi, disc, No icteric, No nl conjunctiva, No nl lids, No nl sclera, No other ENMT: No intubated, No mucosa pink and moist, No nl external ears & nose, No nl lips & teeth, No nl nasal mucosa & septum, No other, No tympanic membranes Neck: No bruits, No jvd, No masses, No non-tender, No nuchal rigidity, No other , No supple, No thyromegaly Respiratory: No clear to auscultation, No congested cough, No crackles/rales, No diminished breath sounds, No intercostal retraction, No labored breathing, No normal air movement, No other, No respirations, No tactile fremitus, No wheezing Cardiovascular: No S3, No S4, No bruits, No diastolic murmur, No edema, No gallop, No irregular rhythm, No jugular venous distention (JVD), No murmurs/ extra sounds, No nl pulses, No other, No regular rate and rhythm, No rub, No systolic murmur Gastrointestinal: No ascites, No bowel sounds, No distended, No firm, No hepatomegaly, No mass, No nl liver, spleen, No non-tender, No other, No rebound or guarding, No soft, No splenomegaly, No surgical scars, No tender Genitourinary - Male: No CVA tenderness, No discharge, No nl penis, No nl scrotum, No other Results Result Diagram: 01/02/1731 01/02/17 0631 Results 24 hrs Laboratory Tests Test 01/01/17 21:18 01/02/17 06:31 01/02/17 08:01 Bedside Glucose 118 126 White Blood Count 8.1 Red Blood Count 4.78 Hemoglobin 14.9 Hematocrit 43.4 Mean Corpuscular Volume 90.8 Mean Corpuscular Hemoglobin 31.2 Mean Corpuscular Hemoglobin Concent 34.3 Red Cell Distribution Width 12.9 Platelet Count 241 Mean Platelet Volume 10.9 H Neutrophils % 51.9 Lymphocytes % 35.6 Monocytes % 7.6 Eosinophils % 4.3 Basophils % 0.4 Nucleated Red Blood Cells % 0.0 Neutrophils # 4.2 Lymphocytes # 2.9 Monocytes # 0.6 Eosinophils # 0.4 Basophils # 0.0 Nucleated Red Blood Cells # 0.0 Sodium Level 142 Potassium Level 3.5 Chloride Level 100 Carbon Dioxide Level 28 Anion Gap 18 H Blood Urea Nitrogen 16 Creatinine 0.82 Glucose Level 107 Calcium Level 9.1 Total Bilirubin 1.4 H Direct Bilirubin 0.00 Indirect Bilirubin 1.4 H Aspartate Amino Transf (AST/SGOT) 40 Alanine Aminotransferase (ALT/SGPT) 65 Alkaline Phosphatase 86 Total Protein 7.3 Albumin 4.0 Globulin 3.30 H Albumin/Globulin Ratio 1.21 Medications Medications Current Medications Diagnostic Test (Pha) (Accu-Chek) 1 ea 02 XX ; Start 01/02/17 at 02:00 Aspirin (Halfprin) 81 mg DAILY PO Last administered on 01/02/17 08:38; Admin Dose 81 MG; Start 01/02/17 at 09:00; Stop 03/26/17 at 08:59 Atorvastatin Calcium (Lipitor) 80 mg DAILY@21 PO Last administered on 21:13; Admin Dose 80 MG; Start 01/01/17 at 21:00 Clopidogrel Bisulfate (plaVIX) 75 mg DAILY PO Last administered on 01/02/17 08 :38; Admin Dose 75 MG; Start 01/02/17 at 09:00 Heparin Sodium (Porcine) (Heparin (5000 Units/0.5 ml)) 5,000 unit BID SC Last administered on 01/02/17 08:53; Admin Dose 5,000 UNIT; Start 01/01/17 at 21:00 Insulin Glargine (Lantus) 12 unit DAILY@08 SC Last administered on 01/02/17 08 :14; Admin Dose 12 UNIT; Start 01/02/17 at 08:00 Miscellaneous Information 1 ea NOTE XX ; Start 01/01/17 at 21:00 Glucose (Glutose) 15 gm Q15M PRN PO DECREASED GLUCOSE; Start 01/01/17 at 21:00 Glucose (Glutose) 22.5 gm Q15M PRN PO DECREASED GLUCOSE; Start 01/01/17 at 21: 00 Dextrose (D50w Syringe) 25 ml Q15M PRN IV DECREASED GLUCOSE; Start 01/01/17 at 21:00 Dextrose (D50w Syringe) 50 ml Q15M PRN IV DECREASED GLUCOSE; Start 01/01/17 at 21:00 Glucagon (Glucagen) 1 mg Q15M PRN IM DECREASED GLUCOSE; Start 01/01/17 at 21:00 Glucose (Glutose) 15 gm Q15M PRN BUCCAL DECREASED GLUCOSE; Start 01/01/17 at 21 :00 Docusate Sodium (Colace) 100 mg BID PO Last administered on 7/28/17at 08:38; Admin Dose 100 MG; Start 01/02/17 at 09:00 Senna (Senokot) 1 tab HS PO ; Start 01/02/17 at 21:00 Acetaminophen (Tylenol Tab) 650 mg Q4H PRN PO PAIN; Start 01/02/17 at 05:47 Magnesium Hydroxide (Milk Of Mag) 30 ml BID PRN PO CONSTIPATION; Start at 05:47 KRISTYN NORIEGA MD Jan 02, 2017 09:37
--- NOTE | 2017-01-02 10:45 | CONS ---
Date/Time of Note Date/Time of Note DATE: 01/02/17 TIME: 10:37 Assessment/Plan Assessment/Plan Additional Assessment/Plan This is a 61-year-old male with acute stroke, who is now admitted to acute rehabilitation unit for further rehabilitation, whom we are seeing for internal medicine consult. 1. Acute CVA with right sided weakness and expressive aphasia. -Continue with ARU activities for functional regain. -Speech therapy to return to baseline. 2. Diabetes. A1c at 8.3. -Continue Accu-Cheks, ISS, Lantus and metformin. We will adjust if indicated. -Carbohydrate controlled, cardiac diet. 3. Hypercholesterolemia. -On statin 4.Essential HTN. Controlled. -We will monitor and intervene if indicated. 5. Debility secondary to #1. -Continue with physical therapy. DVT prophylaxis: Heparin We will follow along with you as medicine consultants. Patient needs 90 day duration on dual antiplatelet including aspirin and Plavix , thereafter he should be continued on Plavix 75 mg daily for indefinite period of time. Approximately 60 minutes was spent on this consultation. Case discussed with Dr. Olivares. Consultation Date/Type/Reason Admit Date/Time Jan 01, 2017 at 18:30 Type of Consultation: Internal medicine Referring Provider: KRISTYN NORIEGA MD Hx of Present Illness This is a 61-year-old male with a past medical history of type 2 diabetes, hypercholesterolemia, essential hypertension, who was unable to find a primary care provider to follow-up and essentially ran out of his prescription pills, presented to [facility] emergency room with altered mentation associated with right-sided weakness and inability to speak. Patient was noted to have acute left AUREA territory infarct. He was admitted and was evaluated by neurology. Patient had LORENA and was negative for any cardiac thrombus. Recommendation was to continue dual antiplatelet for 90 days followed by Plavix alone for indefinite period of time. Patient was then seen by multidisciplinary team including physical therapy, speech therapy and occupational therapy. Patient had good tolerance to PT with retaining some of the strength on his right side. However, patient remained aphasic, expressive. He remained alert and oriented. His blood pressure remained stable without any antihypertensives. Patient was started on insulin and metformin for underlying diabetes. Patient was deemed a good candidate for acute rehab potential and a clinical decision and was admitted to [facility] acute rehabilitation unit. A 12 point review of system was assessed and is negative other than what is mentioned in HPI. Past Medical History See HPI Past Surgical History See HPI Social History No history of alcohol, smoking or illicit drug use Smoking Status: Never smoker Exam/Review of Systems Vital Signs Vitals Vital Signs Date Time Temp Pulse Resp B/P Pulse Ox O2 Delivery O2 Flow Rate FiO2 01/02/17 07:30 98.4 53 20 121/73 96 Intake and Output 01/01/17 01/01/17 01/02/17 15:00 23:00 07:00 Intake Total 830 ml Output Total 200 ml Balance 630 ml Exam General: Well developed,adequately built, not in any acute distress . HEENT: Normocephalic, Atraumatic, No laceration or hematoma; Eyes: PEERL, Conjunctiva clear, Anicteric sclera Neck: Supple without any lymphadenopathy, nontender, no JVD, no carotid bruits, trachea midline, no thyromegaly Cardiac: S1, S2 auscultated, regular rhythm and rate, no mumurs or gallop Pulmonary: Normal respiratory effort. Chest clear to auscultation bilaterally, no adventitious breath sounds GI: Abdomen normal to inspection. Soft, non tender, non- distended, no masses, no rebound tenderness or guarding. Bowel sounds active on all four quadrants Genitourinary: Deferred Extremities: With right-sided weakness-improving. Left/leg motor strength 5 out of 5. Right arm/leg 2/5. No cyanosis, clubbing, or edema. Pulses [2+] bilaterally. Neurologic: Severe expressive aphasia. Right facial weakness. Awake and alert. Skin: Clean,dry, and intact. No ecchymosis, no rashes, or lesions Results Result Diagram: 01/02/1731 01/02/1731 Results 24 hrs Laboratory Tests Test 01/01/17 21:18 01/02/17 06:31 01/02/17 08:01 Bedside Glucose 118 126 White Blood Count 8.1 Red Blood Count 4.78 Hemoglobin 14.9 Hematocrit 43.4 Mean Corpuscular Volume 90.8 Mean Corpuscular Hemoglobin 31.2 Mean Corpuscular Hemoglobin Concent 34.3 Red Cell Distribution Width 12.9 Platelet Count 241 Mean Platelet Volume 10.9 H Neutrophils % 51.9 Lymphocytes % 35.6 Monocytes % 7.6 Eosinophils % 4.3 Basophils % 0.4 Nucleated Red Blood Cells % 0.0 Neutrophils # 4.2 Lymphocytes # 2.9 Monocytes # 0.6 Eosinophils # 0.4 Basophils # 0.0 Nucleated Red Blood Cells # 0.0 Sodium Level 142 Potassium Level 3.5 Chloride Level 100 Carbon Dioxide Level 28 Anion Gap 18 H Blood Urea Nitrogen 16 Creatinine 0.82 Glucose Level 107 Calcium Level 9.1 Total Bilirubin 1.4 H Direct Bilirubin 0.00 Indirect Bilirubin 1.4 H Aspartate Amino Transf (AST/SGOT) 40 Alanine Aminotransferase (ALT/SGPT) 65 Alkaline Phosphatase 86 Total Protein 7.3 Albumin 4.0 Globulin 3.30 H Albumin/Globulin Ratio 1.21 Medications Medications Current Medications Diagnostic Test (Pha) (Accu-Chek) 1 ea 02 XX ; Start 01/02/17 at 02:00 Aspirin (Halfprin) 81 mg DAILY PO Last administered on 01/02/17 08:38; Admin Dose 81 MG; Start 01/02/17 at 09:00; Stop 03/26/17 at 08:59 Atorvastatin Calcium (Lipitor) 80 mg DAILY@21 PO Last administered on 21:13; Admin Dose 80 MG; Start 01/01/17 at 21:00 Clopidogrel Bisulfate (plaVIX) 75 mg DAILY PO Last administered on 01/02/17 08 :38; Admin Dose 75 MG; Start 01/02/17 at 09:00 Heparin Sodium (Porcine) (Heparin (5000 Units/0.5 ml)) 5,000 unit BID SC Last administered on 01/02/17 08:53; Admin Dose 5,000 UNIT; Start 01/01/17 at 21:00 Insulin Glargine (Lantus) 12 unit DAILY@08 SC Last administered on 01/02/17 08 :14; Admin Dose 12 UNIT; Start 01/02/17 at 08:00 Miscellaneous Information 1 ea NOTE XX ; Start 01/01/17 at 21:00 Glucose (Glutose) 15 gm Q15M PRN PO DECREASED GLUCOSE; Start 01/01/17 at 21:00 Glucose (Glutose) 22.5 gm Q15M PRN PO DECREASED GLUCOSE; Start 01/01/17 at 21: 00 Dextrose (D50w Syringe) 25 ml Q15M PRN IV DECREASED GLUCOSE; Start 01/01/17 at 21:00 Dextrose (D50w Syringe) 50 ml Q15M PRN IV DECREASED GLUCOSE; Start 01/01/17 at 21:00 Glucagon (Glucagen) 1 mg Q15M PRN IM DECREASED GLUCOSE; Start 01/01/17 at 21:00 Glucose (Glutose) 15 gm Q15M PRN BUCCAL DECREASED GLUCOSE; Start 01/01/17 at 21 :00 Docusate Sodium (Colace) 100 mg BID PO Last administered on 01/02/17t 08:38; Admin Dose 100 MG; Start 01/02/17 at 09:00 Senna (Senokot) 1 tab HS PO ; Start 01/02/17 at 21:00 Acetaminophen (Tylenol Tab) 650 mg Q4H PRN PO PAIN; Start 01/02/17 at 05:47 Magnesium Hydroxide (Milk Of Mag) 30 ml BID PRN PO CONSTIPATION; Start at 05:47 NAMAN THOMPSON NP Jan 02, 2017 10:45
[2017-01-02 11:16] LABS: UR RBC 1 /HPF (0-5)
[2017-01-02 11:28] LABS: ADD UMIC NO; UR BILIRUBIN (Dip) NEGATIVE (NEGATIVE); UR BLOOD (Dip) NEGATIVE (NEGATIVE); UR CLARITY CLEAR (CLEAR); UR COLOR LT. YELLOW (YELLOW); UR GLUCOSE (Dip) NEGATIVE (NEGATIVE); UR KETONES (Dip) NEGATIVE (NEGATIVE); UR LEUKOCYTE ESTERASE (Dip) NEGATIVE (NEGATIVE); UR NITRITE (Dip) NEGATIVE (NEGATIVE); UR TOTAL PROTEIN (Dip) NEGATIVE (NEGATIVE); UR UROBILINOGEN (Dip) 0.2 E.U./dL (0.1-1.0)
[2017-01-02 14:00] VITALS: BP 122/74; RESP 18
--- NOTE | 2017-01-02 15:17 | CONS ---
Date/Time of Note Date/Time of Note DATE: 01/02/17 TIME: 15:15 Assessment/Plan Assessment/Plan Chief Complaint/Hosp Course IMP: 1.CVA-Acute/aphasia 2.HTN 3.HL 4.DM 5. BRadycardia0=-intermittent with atble BP Recc: -S/P LORNEA with no definite findings of intra-cardiac source of embolus and no PFO or other inter-atrial septal defect -Continue plavix/asa -continue statin -PT/OT Problems: Consultation Date/Type/Reason Admit Date/Time Jan 01, 2017 at 18:30 Initial Consult Date 01/01/2017 Type of Consultation: cardiology Reason for Consultation cva/yoel Referring Provider: KRISTYN NORIEGA MD Exam/Review of Systems Vital Signs Vitals Vital Signs Date Time Temp Pulse Resp B/P Pulse Ox O2 Delivery O2 Flow Rate FiO2 01/02/17 07:30 98.4 53 20 121/73 96 Intake and Output 01/01/17 01/01/17 01/02/17 15:00 23:00 07:00 Intake Total 830 ml Output Total 200 ml Balance 630 ml Exam Review of Systems: CONSTITUTIONAL: No fevers, chills. PULMONARY: No sob CARDIOVASCULAR: No chest pain/palpitations GASTROINTESTINAL: No nausea/vomiting. GENITOURINARY: No hematuria/dysuria. MUSCULOSKELETAL: No myagias/arthalgias. PSYCHIATRIC: The patient denies depression. NEUROLOGIC: aphasic Constitutional: alert Psych: no complaints Head: normocephalic Neck: jvd (8 cm water), supple Respiratory: clear to auscultation Cardiovascular: regular rate and rhythm Gastrointestinal: non-tender, soft Musculoskeletal: muscle weakness (generalized) Neurological: other (aphasic) Results Result Diagram: 01/02/17 0631 01/02/17 0631 Results 24 hrs Laboratory Tests Test 01/01/17 21:18 01/02/17 06:30 01/02/17 06:31 01/02/17 08:01 Bedside Glucose 118 126 Urine Color LT. YELLOW Urine Clarity CLEAR Urine pH 5.5 Urine Specific [place] 1.015 Urine Ketones NEGATIVE Urine Nitrite NEGATIVE Urine Bilirubin NEGATIVE Urine Urobilinogen 0.2 E.U./dL Urine Leukocyte Esterase NEGATIVE Urine Microscopic RBC 1 Urine Microscopic WBC 0 Urine Hemoglobin NEGATIVE Urine Glucose NEGATIVE Urine Total Protein NEGATIVE White Blood Count 8.1 Red Blood Count 4.78 Hemoglobin 14.9 Hematocrit 43.4 Mean Corpuscular Volume 90.8 Mean Corpuscular Hemoglobin 31.2 Mean Corpuscular Hemoglobin Concent 34.3 Red Cell Distribution Width 12.9 Platelet Count 241 Mean Platelet Volume 10.9 H Neutrophils % 51.9 Lymphocytes % 35.6 Monocytes % 7.6 Eosinophils % 4.3 Basophils % 0.4 Nucleated Red Blood Cells % 0.0 Neutrophils # 4.2 Lymphocytes # 2.9 Monocytes # 0.6 Eosinophils # 0.4 Basophils # 0.0 Nucleated Red Blood Cells # 0.0 Sodium Level 142 Potassium Level 3.5 Chloride Level 100 Carbon Dioxide Level 28 Anion Gap 18 H Blood Urea Nitrogen 16 Creatinine 0.82 Glucose Level 107 Calcium Level 9.1 Total Bilirubin 1.4 H Direct Bilirubin 0.00 Indirect Bilirubin 1.4 H Aspartate Amino Transf (AST/SGOT) 40 Alanine Aminotransferase (ALT/SGPT) 65 Alkaline Phosphatase 86 Total Protein 7.3 Albumin 4.0 Globulin 3.30 H Albumin/Globulin Ratio 1.21 Test 01/02/17 12:03 Bedside Glucose 152 Medications Medications Current Medications Diagnostic Test (Pha) (Accu-Chek) 1 ea 02 XX ; Start 01/02/17 at 02:00 Aspirin (Halfprin) 81 mg DAILY PO Last administered on 01/02/17 08:38; Admin Dose 81 MG; Start 01/02/17 at 09:00; Stop 03/26/17 at 08:59 Atorvastatin Calcium (Lipitor) 80 mg DAILY@21 PO Last administered on 21:13; Admin Dose 80 MG; Start 01/01/17 at 21:00 Clopidogrel Bisulfate (plaVIX) 75 mg DAILY PO Last administered on 01/02/17 08 :38; Admin Dose 75 MG; Start 01/02/17 at 09:00 Heparin Sodium (Porcine) (Heparin (5000 Units/0.5 ml)) 5,000 unit BID SC Last administered on 01/02/17 08:53; Admin Dose 5,000 UNIT; Start 01/01/17 at 21:00 Insulin Glargine (Lantus) 12 unit DAILY@08 SC Last administered on 01/02/17 08 :14; Admin Dose 12 UNIT; Start 01/02/17 at 08:00 Miscellaneous Information 1 ea NOTE XX ; Start 01/01/17 at 21:00 Glucose (Glutose) 15 gm Q15M PRN PO DECREASED GLUCOSE; Start 01/01/17 at 21:00 Glucose (Glutose) 22.5 gm Q15M PRN PO DECREASED GLUCOSE; Start 01/01/17 at 21: 00 Dextrose (D50w Syringe) 25 ml Q15M PRN IV DECREASED GLUCOSE; Start 01/01/17 at 21:00 Dextrose (D50w Syringe) 50 ml Q15M PRN IV DECREASED GLUCOSE; Start 01/01/17 at 21:00 Glucagon (Glucagen) 1 mg Q15M PRN IM DECREASED GLUCOSE; Start 01/01/17 at 21:00 Glucose (Glutose) 15 gm Q15M PRN BUCCAL DECREASED GLUCOSE; Start 01/01/17 at 21 :00 Docusate Sodium (Colace) 100 mg BID PO Last administered on 01/02/17t 08:38; Admin Dose 100 MG; Start 01/02/17 at 09:00 Senna (Senokot) 1 tab HS PO ; Start 01/02/17 at 21:00 Acetaminophen (Tylenol Tab) 650 mg Q4H PRN PO PAIN; Start 01/02/17 at 05:47 Magnesium Hydroxide (Milk Of Mag) 30 ml BID PRN PO CONSTIPATION; Start at 05:47 MATTHIEU TAYLOR Jan 02, 2017 15:17
[2017-01-02 19:46] VITALS: BP 103/65; RESP 18
[2017-01-02] MEDS: ATORVASTATIN 80 MG TAB PO SCH (21:38)
[2017-01-02] MEDS: SENNA TAB PO SCH (21:39)
[2017-01-03] MEDS: ACCU-CHEK XX SCH (02:00)
[2017-01-03 02:14] VITALS: BP 110/68; RESP 18
[2017-01-03 07:30] VITALS: BP 103/64; RESP 20
[2017-01-03] MEDS: INSULIN ASPART [NOVOLOG] 3 ML PEN SC SCH ×4 (07:35→21:00)
[2017-01-03] MEDS: MAGNESIUM HYDROXIDE 30ML CUP PO PRN (08:32)
[2017-01-03] MEDS: metFORMIN 500 MG TAB PO SCH ×2 (08:32→17:32)
[2017-01-03] MEDS: DOCUSATE SODIUM 100 MG CAP PO SCH ×2 (08:32→21:08)
[2017-01-03] MEDS: CLOPIDOGREL 75 MG TAB PO SCH (08:33)
[2017-01-03] MEDS: HEPARIN 5,000 UNIT/0.5 ML VIAL SC SCH ×2 (08:33→21:13)
[2017-01-03] MEDS: ASPIRIN (EC) 81 MG TAB PO SCH (08:33)
[2017-01-03] MEDS: INSULIN GLARGINE [LANtus] 3 ML PEN SC SCH (08:34)
--- NOTE | 2017-01-03 11:11 | PN ---
Date/Time of Note Date/Time of Note DATE: 01/03/17 TIME: 11:09 Assessment/Plan VTE Prophylaxis VTE Prophylaxis Intervention: heparin Lines/Catheters IV [facility] Urinary Cath still in place: No Assessment/Plan Chief Complaint/Hosp Course 1. Acute CVA with right-sided weakness and expressive aphasia. Brain MRI showing acute recent left anterior cerebral artery territory infarct with occluded left anterior cerebral artery and severe stenosis versus occlusion of the intracranial left vertebral artery. Status post evaluation by neurology. Continue dual antiplatelet therapy. The patient currently in acute rehabilitation unit. 2. Type 2 diabetes mellitus. Hemoglobin A1c 8.3. Continue insulin regimen. Continue metformin. 3. Dyslipidemia. Continue statins. 4. Essential hypertension. Blood pressure well controlled off antihypertensives. 5. Debility secondary to #1. Continue acute rehabilitation. 6. Fluids, electrolytes, and nutrition. Bladder controlled diet. 7. DVT prophylaxis. Subcutaneous heparin. 8. Gastrointestinal prophylaxis. Histamine 2 receptor blockers. 9. Plan. Continue current medical management. Case discussed with . Problems: Subjective 24 Hr Interval Summary Free Text/Dictation Undergoing physical therapy. Exam/Review of Systems Vital Signs Vitals Vital Signs Date Time Temp Pulse Resp B/P Pulse Ox O2 Delivery O2 Flow Rate FiO2 01/03/17 02:14 98.5 73 18 110/68 92 Intake and Output 01/02/17 01/02/17 01/03/17 15:00 23:00 07:00 Intake Total 680 ml 950 ml Output Total 300 ml Balance 680 ml 650 ml Exam General: Adequately build 61 year-old male in no apparent distress. HEENT: Normocephalic, atraumatic. Eyes: Anicteric sclerae, conjunctivae clear. ENT: Nasal septum midline, oral mucosa moist. Neck supple, no JVD noticed. Respiratory: Bilaterally clear breath sounds. No use of accessory muscles of respiration. No adventitious breath sounds. Cardiovascular: S1, S2 heard. No murmurs or gallops. Abdomen: Soft, nontender, and nondistended. Bowel sounds positive in all 4 quadrants. Genitourinary: Deferred. Extremities: No cyanosis, no clubbing, no edema. Peripheral pulses palpable. Neurologic: The patient is awake, alert, and oriented. Expressive aphasia. Right-sided weakness. Right arm and right leg strength 2/5. Skin: Normal skin turgor. No skin rashes. Results Result Diagram: 01/02/17 0631 01/02/17 0631 Results 24 hrs Laboratory Tests Test 01/02/17 12:03 01/02/17 17:21 01/02/17 21:37 01/03/17 07:57 Bedside Glucose 152 130 120 118 Medications Medications Current Medications Diagnostic Test (Pha) (Accu-Chek) 1 ea 02 XX ; Start 01/02/17 at 02:00 Aspirin (Halfprin) 81 mg DAILY PO Last administered on 01/03/17 08:33; Admin Dose 81 MG; Start 01/02/17 at 09:00; Stop 03/26/17 at 08:59 Atorvastatin Calcium (Lipitor) 80 mg DAILY@21 PO Last administered on 21:38; Admin Dose 80 MG; Start 01/01/17 at 21:00 Clopidogrel Bisulfate (plaVIX) 75 mg DAILY PO Last administered on 01/03/17 08 :33; Admin Dose 75 MG; Start 01/02/17 at 09:00 Heparin Sodium (Porcine) (Heparin (5000 Units/0.5 ml)) 5,000 unit BID SC Last administered on 01/03/17 08:33; Admin Dose 5,000 UNIT; Start 01/01/17 at 21:00 Insulin Glargine (Lantus) 12 unit DAILY@08 SC Last administered on 01/03/17 08 :34; Admin Dose 12 UNIT; Start 01/02/17 at 08:00 Miscellaneous Information 1 ea NOTE XX ; Start 01/01/17 at 21:00 Glucose (Glutose) 15 gm Q15M PRN PO DECREASED GLUCOSE; Start 01/01/17 at 21:00 Glucose (Glutose) 22.5 gm Q15M PRN PO DECREASED GLUCOSE; Start 01/01/17 at 21: 00 Dextrose (D50w Syringe) 25 ml Q15M PRN IV DECREASED GLUCOSE; Start 01/01/17 at 21:00 Dextrose (D50w Syringe) 50 ml Q15M PRN IV DECREASED GLUCOSE; Start 01/01/17 at 21:00 Glucagon (Glucagen) 1 mg Q15M PRN IM DECREASED GLUCOSE; Start 01/01/17 at 21:00 Glucose (Glutose) 15 gm Q15M PRN BUCCAL DECREASED GLUCOSE; Start 01/01/17 at 21 :00 Docusate Sodium (Colace) 100 mg BID PO Last administered on 01/03/17 08:32; Admin Dose 100 MG; Start 01/02/17 at 09:00 Senna (Senokot) 1 tab HS PO Last administered on 01/02/17 21:39; Admin Dose 1 TAB; Start 01/02/17 at 21:00 Acetaminophen (Tylenol Tab) 650 mg Q4H PRN PO PAIN; Start 01/02/17 at 05:47 Magnesium Hydroxide (Milk Of Mag) 30 ml BID PRN PO CONSTIPATION Last administered on 01/03/17 08:32; Admin Dose 30 ML; Start 01/02/17 at 05:47 JUAREZ MAHMOOD NP Jan 03, 2017 11:11
--- NOTE | 2017-01-03 12:06 | CONS ---
Date/Time of Note Date/Time of Note DATE: 01/03/17 TIME: 12:04 Assessment/Plan Assessment/Plan Additional Assessment/Plan 1.CVA-Acute/aphasia -S/P LORENA with no definite findings of intra-cardiac source of embolus and no PFO or other inter-atrial septal defect 2.HTN - well rx, con't med rx 3.HL 4.DM - on meds - keep euglycemic 5. Bradycardia - intermittent with stable BP - no indication for pacer Consultation Date/Type/Reason Admit Date/Time Jan 01, 2017 at 18:30 Initial Consult Date Type of Consultation: cardiology Referring Provider: KRISTYN NORIEGA MD 24 HR Interval Summary Free Text/Dictation NO acute change BP in good range - con't to follow ROS: No fever, no chills, no nausea, no vomiting, no diarrhea/constipation No recent weight changes No chest pain, no PND, no orthopnea No dizziness, blurred vision No thirst, no heat or cold intolerance Exam/Review of Systems Vital Signs Vitals Vital Signs Date Time Temp Pulse Resp B/P Pulse Ox O2 Delivery O2 Flow Rate FiO2 01/03/17 02:14 98.5 73 18 110/68 92 Intake and Output 01/02/17 01/02/17 01/03/17 15:00 23:00 07:00 Intake Total 680 ml 950 ml Output Total 300 ml Balance 680 ml 650 ml Exam General: WN/WD/NAD, AOx comfortable HEENT: Unicetric/atraumatic/EOMI (folows commands) NECK: JVD elevated, no thyromegaly Lymph: no lymphadenopathy HEART: regular with no S3, II/ systolic murmur at apex LUNGS: Coarse sounds ABD: soft, NT, ND, +BS : Intact Neuro: s/p CVA SKIN: chronic changes EXT: trace edema Results Result Diagram: 01/02/17 0631 01/02/17 0631 Results 24 hrs Laboratory Tests Test 01/02/17 17:21 01/02/17 21:37 01/03/17 07:57 01/03/17 11:52 Bedside Glucose 130 120 118 213 Medications Medications Current Medications Diagnostic Test (Pha) (Accu-Chek) 1 02 XX ; Start 01/02/17 at 02:00 Aspirin (Halfprin) 81 mg DAILY PO Last administered on 01/03/17 08:33; Admin Dose 81 MG; Start 01/02/17 at 09:00; Stop 03/26/17 at 08:59 Atorvastatin Calcium (Lipitor) 80 mg DAILY@21 PO Last administered on 21:38; Admin Dose 80 MG; Start 01/01/17 at 21:00 Clopidogrel Bisulfate (plaVIX) 75 mg DAILY PO Last administered on 01/03/17 08 :33; Admin Dose 75 MG; Start 01/02/17 at 09:00 Heparin Sodium (Porcine) (Heparin (5000 Units/0.5 ml)) 5,000 unit BID SC Last administered on 01/03/17 08:33; Admin Dose 5,000 UNIT; Start 01/01/17 at 21:00 Insulin Glargine (Lantus) 12 unit DAILY@08 SC Last administered on 01/03/17 08 :34; Admin Dose 12 UNIT; Start 01/02/17 at 08:00 Miscellaneous Information 1 ea NOTE XX ; Start 01/01/17 at 21:00 Glucose (Glutose) 15 gm Q15M PRN PO DECREASED GLUCOSE; Start 01/01/17 at 21:00 Glucose (Glutose) 22.5 gm Q15M PRN PO DECREASED GLUCOSE; Start 01/01/17 at 21: 00 Dextrose (D50w Syringe) 25 ml Q15M PRN IV DECREASED GLUCOSE; Start 01/01/17 at 21:00 Dextrose (D50w Syringe) 50 ml Q15M PRN IV DECREASED GLUCOSE; Start 01/01/17 at 21:00 Glucagon (Glucagen) 1 mg Q15M PRN IM DECREASED GLUCOSE; Start 01/01/17 at 21:00 Glucose (Glutose) 15 gm Q15M PRN BUCCAL DECREASED GLUCOSE; Start 01/01/17 at 21 :00 Docusate Sodium (Colace) 100 mg BID PO Last administered on 01/03/17 08:32; Admin Dose 100 MG; Start 01/02/17 at 09:00 Senna (Senokot) 1 tab HS PO Last administered on 01/02/17 21:39; Admin Dose 1 TAB; Start 01/02/17 at 21:00 Acetaminophen (Tylenol Tab) 650 mg Q4H PRN PO PAIN; Start 01/02/17 at 05:47 Magnesium Hydroxide (Milk Of Mag) 30 ml BID PRN PO CONSTIPATION Last administered on 01/03/17t 08:32; Admin Dose 30 ML; Start 01/02/17 at 05:47 Famotidine (Pepcid) 20 mg BID PO ; Start 01/03/17 at 12:00 NIALL ALONZO MD Jan 03, 2017 12:06
[2017-01-03] MEDS: FAMOTIDINE 20 MG TAB PO SCH ×2 (12:21→21:08)
--- NOTE | 2017-01-03 12:38 | CONS ---
Date/Time of Note Date/Time of Note DATE: 01/03/17 TIME: 12:37 Consult Date/Type/Reason Admit Date/Time Jan 01, 2017 at 18:30 Initial Consult Date Type of Consultation: cardiology Ordering Provider: KRISTYN NORIEGA MD Subjective Comfortable no complaint Objective Lungs clear anteriorly abdomen soft moderate assist for transfers Vital Signs Date Time Temp Pulse Resp B/P Pulse Ox O2 Delivery O2 Flow Rate FiO2 01/03/17 07:30 98.4 20 103/64 97 01/03/17 02:14 73 Intake and Output 01/02/17 01/02/17 01/03/17 15:00 23:00 07:00 Intake Total 680 ml 950 ml Output Total 300 ml Balance 680 ml 650 ml Results/Medications Result Diagram: 01/02/1763001/02/1731 Results 24 hrs Laboratory Tests Test 01/02/17 17:21 01/02/17 21:37 01/03/17 07:57 01/03/17 11:52 Bedside Glucose 130 120 118 213 Medications Current Medications Diagnostic Test (Pha) (Accu-Chek) 1 ea 02 XX ; Start 01/02/17 at 02:00 Aspirin (Halfprin) 81 mg DAILY PO Last administered on 01/03/17 08:33; Admin Dose 81 MG; Start 01/02/17 at 09:00; Stop 03/26/17 at 08:59 Atorvastatin Calcium (Lipitor) 80 mg DAILY@21 PO Last administered on 21:38; Admin Dose 80 MG; Start 01/01/17 at 21:00 Clopidogrel Bisulfate (plaVIX) 75 mg DAILY PO Last administered on 01/03/17 08 :33; Admin Dose 75 MG; Start 01/02/17 at 09:00 Heparin Sodium (Porcine) (Heparin (5000 Units/0.5 ml)) 5,000 unit BID SC Last administered on 01/03/17 08:33; Admin Dose 5,000 UNIT; Start 01/01/17 at 21:00 Insulin Glargine (Lantus) 12 unit DAILY@08 SC Last administered on 01/03/17 08 :34; Admin Dose 12 UNIT; Start 01/02/17 at 08:00 Miscellaneous Information 1 ea NOTE XX ; Start 01/01/17 at 21:00 Glucose (Glutose) 15 gm Q15M PRN PO DECREASED GLUCOSE; Start 01/01/17 at 21:00 Glucose (Glutose) 22.5 gm Q15M PRN PO DECREASED GLUCOSE; Start 01/01/17 at 21: 00 Dextrose (D50w Syringe) 25 ml Q15M PRN IV DECREASED GLUCOSE; Start 01/01/17 at 21:00 Dextrose (D50w Syringe) 50 ml Q15M PRN IV DECREASED GLUCOSE; Start 01/01/17 at 21:00 Glucagon (Glucagen) 1 mg Q15M PRN IM DECREASED GLUCOSE; Start 01/01/17 at 21:00 Glucose (Glutose) 15 gm Q15M PRN BUCCAL DECREASED GLUCOSE; Start 01/01/17 at 21 :00 Docusate Sodium (Colace) 100 mg BID PO Last administered on 01/03/17 08:32; Admin Dose 100 MG; Start 01/02/17 at 09:00 Senna (Senokot) 1 tab HS PO Last administered on 01/02/17 21:39; Admin Dose 1 TAB; Start 01/02/17 at 21:00 Acetaminophen (Tylenol Tab) 650 mg Q4H PRN PO PAIN; Start 01/02/17 at 05:47 Magnesium Hydroxide (Milk Of Mag) 30 ml BID PRN PO CONSTIPATION Last administered on 01/03/17 08:32; Admin Dose 30 ML; Start 01/02/17 at 05:47 Famotidine (Pepcid) 20 mg BID PO Last administered on 01/03/17 12:21; Admin Dose 20 MG; Start 01/03/17 at 12:00 Assessment/Plan Additional Assessment/Plan Rehabilitation -left AUREA infarct CVA with Right sided weakness Patient tolerating interdisciplinary treatment plan Aphasia and Dysphagia . Diabetes Mellitus type 2 Hypertension Hypercholesterolemia KRISTYN NORIEGA MD Jan 03, 2017 12:38
[2017-01-03] MEDS ORDERED: LACTULOSE 30ML CUP PO PRN (15:00)
[2017-01-03 19:40] VITALS: BP 105/60; RESP 19
[2017-01-03] MEDS: ATORVASTATIN 80 MG TAB PO SCH (21:08)
[2017-01-03] MEDS: SENNA TAB PO SCH (21:08)
[2017-01-04] MEDS: ACCU-CHEK XX SCH (02:00)
[2017-01-04] MEDS: INSULIN ASPART [NOVOLOG] 3 ML PEN SC SCH ×4 (07:35→20:54)
[2017-01-04] MEDS: metFORMIN 500 MG TAB PO SCH ×2 (08:16→17:54)
[2017-01-04] MEDS: INSULIN GLARGINE [LANtus] 3 ML PEN SC SCH (08:19)
[2017-01-04] MEDS: FAMOTIDINE 20 MG TAB PO SCH ×2 (08:20→20:52)
[2017-01-04] MEDS: CLOPIDOGREL 75 MG TAB PO SCH (08:20)
[2017-01-04] MEDS: DOCUSATE SODIUM 100 MG CAP PO SCH ×2 (08:20→20:52)
[2017-01-04] MEDS: ASPIRIN (EC) 81 MG TAB PO SCH (08:20)
[2017-01-04] MEDS: HEPARIN 5,000 UNIT/0.5 ML VIAL SC SCH ×2 (08:20→20:56)
--- NOTE | 2017-01-04 17:27 | CONS ---
Date/Time of Note Date/Time of Note DATE: 01/04/17 TIME: 17:26 Assessment/Plan Assessment/Plan Additional Assessment/Plan 1.CVA-Acute/aphasia -S/P [place] with no definite findings of intra-cardiac source of embolus and no PFO or other inter-atrial septal defect - con't rehab 2.HTN - well rx, con't med rx - WELL RX NOW 3.HL 4.DM - on meds - keep euglycemic - on meds 5. Bradycardia - intermittent with stable BP - no indication for pacer Consultation Date/Type/Reason Admit Date/Time Jan 01, 2017 at 18:30 Type of Consultation: cardiology Referring Provider: KRISTYN NORIEGA MD 24 HR Interval Summary Free Text/Dictation NO acute events - con't rehab ROS: No fever, no chills, no nausea, no vomiting, no diarrhea/constipation No recent weight changes No chest pain, no PND, no orthopnea No dizziness, blurred vision No thirst, no heat or cold intolerance Exam/Review of Systems Vital Signs Vitals Vital Signs Date Time Temp Pulse Resp B/P Pulse Ox O2 Delivery O2 Flow Rate FiO2 01/03/17 19:40 98.8 64 19 105/60 93 Intake and Output 01/03/17 01/03/17 01/04/17 15:00 23:00 07:00 Intake Total 720 ml Output Total 1 ml 500 ml Balance 719 ml -500 ml Exam General: WN/WD/NAD, AOx comfrtable HEENT: Unicetric/atraumatic/EOMI (does not follow commands) NECK: JVD elevated, no thyromegaly Lymph: no lymphadenopathy HEART: regular with no S3, II/ systolic murmur at apex LUNGS: Coarse sounds ABD: soft, NT, ND, +BS : Intact Neuro: non focal SKIN: chronic changes EXT: trace edema Results Result Diagram: 01/02/17 0631 01/02/17 0631 Results 24 hrs Laboratory Tests Test 01/03/17 21:07 01/04/17 07:42 01/04/17 12:11 01/04/17 17:16 Bedside Glucose 124 101 93 130 Medications Medications Current Medications Diagnostic Test (Pha) (Accu-Chek) 1 XX ; Start 01/02/17 at 02:00 Aspirin (Halfprin) 81 mg DAILY PO Last administered on 01/04/17 08:20; Admin Dose 81 MG; Start 01/02/17 at 09:00; Stop 03/26/17 at 08:59 Atorvastatin Calcium (Lipitor) 80 mg DAILY@21 PO Last administered on 21:08; Admin Dose 80 MG; Start 01/01/17 at 21:00 Clopidogrel Bisulfate (plaVIX) 75 mg DAILY PO Last administered on 01/04/17 08 :20; Admin Dose 75 MG; Start 01/02/17 at 09:00 Heparin Sodium (Porcine) (Heparin (5000 Units/0.5 ml)) 5,000 unit BID SC Last administered on 01/04/17 08:20; Admin Dose 5,000 UNIT; Start 01/01/17 at 21:00 Insulin Glargine (Lantus) 12 unit DAILY@08 SC Last administered on 01/04/17 08 :19; Admin Dose 12 UNIT; Start 01/02/17 at 08:00 Miscellaneous Information 1 ea NOTE XX ; Start 01/01/17 at 21:00 Glucose (Glutose) 15 gm Q15M PRN PO DECREASED GLUCOSE; Start 01/01/17 at 21:00 Glucose (Glutose) 22.5 gm Q15M PRN PO DECREASED GLUCOSE; Start 01/01/17 at 21: 00 Dextrose (D50w Syringe) 25 ml Q15M PRN IV DECREASED GLUCOSE; Start 01/01/17 at 21:00 Dextrose (D50w Syringe) 50 ml Q15M PRN IV DECREASED GLUCOSE; Start 01/01/17 at 21:00 Glucagon (Glucagen) 1 mg Q15M PRN IM DECREASED GLUCOSE; Start 01/01/17 at 21:00 Glucose (Glutose) 15 gm Q15M PRN BUCCAL DECREASED GLUCOSE; Start 01/01/17 at 21 :00 Docusate Sodium (Colace) 100 mg BID PO Last administered on 01/04/17 08:20; Admin Dose 100 MG; Start 01/02/17 at 09:00 Senna (Senokot) 1 tab HS PO Last administered on 01/03/17 21:08; Admin Dose 1 TAB; Start 01/02/17 at 21:00 Acetaminophen (Tylenol Tab) 650 mg Q4H PRN PO PAIN; Start 01/02/17 at 05:47 Magnesium Hydroxide (Milk Of Mag) 30 ml BID PRN PO CONSTIPATION Last administered on 01/03/17 08:32; Admin Dose 30 ML; Start 01/02/17 at 05:47 Famotidine (Pepcid) 20 mg BID PO Last administered on 01/04/17 08:20; Admin Dose 20 MG; Start 01/03/17 at 12:00 Lactulose (Enulose) 20 gm DAILY PRN PO CONSTIPATION; Start 01/03/17 at 15:00 NIALL ALONZO MD Jan 04, 2017 17:27
[2017-01-04 19:39] VITALS: BP 110/71; RESP 20
[2017-01-04] MEDS: SENNA TAB PO SCH (20:52)
[2017-01-04] MEDS: ATORVASTATIN 80 MG TAB PO SCH (20:52)
[2017-01-05 01:56] VITALS: BP 123/74; RESP 19
[2017-01-05] MEDS: ACCU-CHEK XX SCH (02:15)
[2017-01-05 07:30] VITALS: BP 118/69; RESP 18
[2017-01-05] MEDS: INSULIN ASPART [NOVOLOG] 3 ML PEN SC SCH ×4 (07:35→20:42)
[2017-01-05] MEDS: HEPARIN 5,000 UNIT/0.5 ML VIAL SC SCH ×2 (08:31→20:49)
[2017-01-05] MEDS: INSULIN GLARGINE [LANtus] 3 ML PEN SC SCH (08:31)
[2017-01-05] MEDS: ASPIRIN (EC) 81 MG TAB PO SCH (08:32)
[2017-01-05] MEDS: FAMOTIDINE 20 MG TAB PO SCH ×2 (08:32→20:42)
[2017-01-05] MEDS: DOCUSATE SODIUM 100 MG CAP PO SCH ×2 (08:32→20:42)
[2017-01-05] MEDS: metFORMIN 500 MG TAB PO SCH ×2 (08:32→16:58)
[2017-01-05] MEDS: CLOPIDOGREL 75 MG TAB PO SCH (08:32)
--- NOTE | 2017-01-05 13:07 | CONS ---
Date/Time of Note Date/Time of Note DATE: 01/05/17 TIME: 13:06 Consult Date/Type/Reason Admit Date/Time Jan 01, 2017 at 18:30 Type of Consultation: cardiology Ordering Provider: KRISTYN NORIEGA MD Objective Vital Signs Date Time Temp Pulse Resp B/P Pulse Ox O2 Delivery O2 Flow Rate FiO2 01/05/17 07:30 98.4 60 18 118/69 95 Intake and Output 01/04/17 01/04/17 01/05/17 14:59 22:59 06:59 Intake Total 200 ml Output Total 700 ml Balance -500 ml INTERDISCIPLINARY TEAM CONFERENCE BOWEL- Cont BLADDER-Cont SKIN- intact OT- DRESSING-mod BATHING-mod TOILETING-mod PT- BED MOBILITY-mod TRANSFERS-mod AMBULATION-mod 30 SPEECH- COGNITION/COMMUNICATION- MAX DYPHAGIA A/P- Interdisciplinary team conference held today. Please see interdisciplinary sheet. Working toward d.c. on 01/15 with post discharge follow up of physical therapy, occupational therapy. Results/Medications Result Diagram: 01/02/1731 01/02/1731 Results 24 hrs Laboratory Tests Test 01/04/17 17:16 01/04/17 20:53 01/05/17 08:03 01/05/17 12:00 Bedside Glucose 130 98 125 168 Medications Current Medications Diagnostic Test (Pha) (Accu-Chek) 1 ea 02 XX ; Start 01/02/17 at 02:00 Aspirin (Halfprin) 81 mg DAILY PO Last administered on 01/05/17 08:32; Admin Dose 81 MG; Start 01/02/17 at 09:00; Stop 03/26/17 at 08:59 Atorvastatin Calcium (Lipitor) 80 mg DAILY@21 PO Last administered on 20:52; Admin Dose 80 MG; Start 01/01/17 at 21:00 Clopidogrel Bisulfate (plaVIX) 75 mg DAILY PO Last administered on 01/05/17 08 :32; Admin Dose 75 MG; Start 01/02/17 at 09:00 Heparin Sodium (Porcine) (Heparin (5000 Units/0.5 ml)) 5,000 unit BID SC Last administered on 01/05/17 08:31; Admin Dose 5,000 UNIT; Start 01/01/17 at 21:00 Insulin Glargine (Lantus) 12 unit DAILY@08 SC Last administered on 01/05/17 08 :31; Admin Dose 12 UNIT; Start 01/02/17 at 08:00 Miscellaneous Information 1 ea NOTE XX ; Start 01/01/17 at 21:00 Glucose (Glutose) 15 gm Q15M PRN PO DECREASED GLUCOSE; Start 01/01/17 at 21:00 Glucose (Glutose) 22.5 gm Q15M PRN PO DECREASED GLUCOSE; Start 01/01/17 at 21: 00 Dextrose (D50w Syringe) 25 ml Q15M PRN IV DECREASED GLUCOSE; Start 01/01/17 at 21:00 Dextrose (D50w Syringe) 50 ml Q15M PRN IV DECREASED GLUCOSE; Start 01/01/17 at 21:00 Glucagon (Glucagen) 1 mg Q15M PRN IM DECREASED GLUCOSE; Start 01/01/17 at 21:00 Glucose (Glutose) 15 gm Q15M PRN BUCCAL DECREASED GLUCOSE; Start 01/01/17 at 21 :00 Docusate Sodium (Colace) 100 mg BID PO Last administered on 01/05/17 08:32; Admin Dose 100 MG; Start 01/02/17 at 09:00 Senna (Senokot) 1 tab HS PO Last administered on 01/04/17 20:52; Admin Dose 1 TAB; Start 01/02/17 at 21:00 Acetaminophen (Tylenol Tab) 650 mg Q4H PRN PO PAIN; Start 01/02/17 at 05:47 Magnesium Hydroxide (Milk Of Mag) 30 ml BID PRN PO CONSTIPATION Last administered on 01/03/17 08:32; Admin Dose 30 ML; Start 01/02/17 at 05:47 Famotidine (Pepcid) 20 mg BID PO Last administered on 01/05/17 08:32; Admin Dose 20 MG; Start 01/03/17 at 12:00 Lactulose (Enulose) 20 gm DAILY PRN PO CONSTIPATION; Start 01/03/17 at 15:00 KRISTYN NORIEGA MD Jan 05, 2017 13:07
--- NOTE | 2017-01-05 13:18 | CONS ---
Date/Time of Note Date/Time of Note DATE: 01/05/17 TIME: 13:16 Assessment/Plan Assessment/Plan Chief Complaint/Hosp Course IMP: 1.CVA-Acute/aphasia 2.HTN 3.HL 4.DM 5. BRadycardia0=-intermittent with atble BP Recc: -S/P [place] with no definite findings of intra-cardiac source of embolus and no PFO or other inter-atrial septal defect -Continue plavix/asa -continue statin -PT/OT Problems: Consultation Date/Type/Reason Admit Date/Time Jan 01, 2017 at 18:30 Initial Consult Date 01/01/2017 Type of Consultation: cardiology Reason for Consultation cva Referring Provider: KRISTYN NORIEGA MD Exam/Review of Systems Vital Signs Vitals Vital Signs Date Time Temp Pulse Resp B/P Pulse Ox O2 Delivery O2 Flow Rate FiO2 01/05/17 07:30 98.4 60 18 118/69 95 Intake and Output 01/04/17 01/04/17 01/05/17 15:00 23:00 07:00 Intake Total 200 ml Output Total 700 ml Balance -500 ml Exam Review of Systems: CONSTITUTIONAL: No fevers, chills. PULMONARY: No sob CARDIOVASCULAR: No chest pain/palpitations GASTROINTESTINAL: No nausea/vomiting. GENITOURINARY: No hematuria/dysuria. MUSCULOSKELETAL: No myagias/arthalgias. PSYCHIATRIC: The patient denies depression. NEUROLOGIC: No weakness Constitutional: alert Psych: no complaints Head: normocephalic ENMT: mucosa pink and moist Neck: jvd, supple Respiratory: diminished breath sounds Cardiovascular: regular rate and rhythm Gastrointestinal: non-tender, soft Musculoskeletal: muscle tone Extremities: normal pulses Neurological: other (No focal deficits) Results Result Diagram: 01/02/17 0631 01/02/17 0631 Results 24 hrs Laboratory Tests Test 01/04/17 17:16 01/04/17 20:53 01/05/17 08:03 01/05/17 12:00 Bedside Glucose 130 98 125 168 Medications Medications Current Medications Diagnostic Test (Pha) (Accu-Chek) 1 XX ; Start 01/02/17 at 02:00 Aspirin (Halfprin) 81 mg DAILY PO Last administered on 01/05/17t 08:32; Admin Dose 81 MG; Start 01/02/17 at 09:00; Stop 03/26/17 at 08:59 Atorvastatin Calcium (Lipitor) 80 mg DAILY@21 PO Last administered on 20:52; Admin Dose 80 MG; Start 01/01/17 at 21:00 Clopidogrel Bisulfate (plaVIX) 75 mg DAILY PO Last administered on 01/05/17 08 :32; Admin Dose 75 MG; Start 01/02/17 at 09:00 Heparin Sodium (Porcine) (Heparin (5000 Units/0.5 ml)) 5,000 unit BID SC Last administered on 01/05/17 08:31; Admin Dose 5,000 UNIT; Start 01/01/17 at 21:00 Insulin Glargine (Lantus) 12 unit DAILY@08 SC Last administered on 01/05/17 08 :31; Admin Dose 12 UNIT; Start 01/02/17 at 08:00 Miscellaneous Information 1 ea NOTE XX ; Start 01/01/17 at 21:00 Glucose (Glutose) 15 gm Q15M PRN PO DECREASED GLUCOSE; Start 01/01/17 at 21:00 Glucose (Glutose) 22.5 gm Q15M PRN PO DECREASED GLUCOSE; Start 01/01/17 at 21: 00 Dextrose (D50w Syringe) 25 ml Q15M PRN IV DECREASED GLUCOSE; Start 01/01/17 at 21:00 Dextrose (D50w Syringe) 50 ml Q15M PRN IV DECREASED GLUCOSE; Start 01/01/17 at 21:00 Glucagon (Glucagen) 1 mg Q15M PRN IM DECREASED GLUCOSE; Start 01/01/17 at 21:00 Glucose (Glutose) 15 gm Q15M PRN BUCCAL DECREASED GLUCOSE; Start 01/01/17 at 21 :00 Docusate Sodium (Colace) 100 mg BID PO Last administered on 01/05/17 08:32; Admin Dose 100 MG; Start 01/02/17 at 09:00 Senna (Senokot) 1 tab HS PO Last administered on 01/04/17 20:52; Admin Dose 1 TAB; Start 01/02/17 at 21:00 Acetaminophen (Tylenol Tab) 650 mg Q4H PRN PO PAIN; Start 01/02/17 at 05:47 Magnesium Hydroxide (Milk Of Mag) 30 ml BID PRN PO CONSTIPATION Last administered on 01/03/17 08:32; Admin Dose 30 ML; Start 01/02/17 at 05:47 Famotidine (Pepcid) 20 mg BID PO Last administered on 01/05/17t 08:32; Admin Dose 20 MG; Start 01/03/17 at 12:00 Lactulose (Enulose) 20 gm DAILY PRN PO CONSTIPATION; Start 01/03/17 at 15:00 MATTHIEU TAYLOR Jan 05, 2017 13:18
--- NOTE | 2017-01-05 14:36 | CONS ---
Date/Time of Note Date/Time of Note DATE: 01/05/17 TIME: 14:32 Assessment/Plan Assessment/Plan Chief Complaint/Hosp Course 1. Acute CVA with right sided weakness and expressive aphasia. -Continue with ARU activities for functional regain. -Speech therapy to return to baseline. 2. Diabetes. A1c at 8.3. -Continue Accu-Cheks, ISS, Lantus and metformin. We will adjust if indicated. -Carbohydrate controlled, cardiac diet. 3. Hypercholesterolemia. -On statin 4.Essential HTN. Controlled. -We will monitor and intervene if indicated. 5. Debility secondary to #1. -Continue with physical therapy. DVT prophylaxis: Heparin Case discussed with Dr. Manriquez Problems: Consultation Date/Type/Reason Admit Date/Time Jan 01, 2017 at 18:30 Initial Consult Date Type of Consultation: cardiology Referring Provider: KRISTYN NORIEGA MD 24 HR Interval Summary Free Text/Dictation No acute overnight episodes.Has been participating in PT. Exam/Review of Systems Vital Signs Vitals Vital Signs Date Time Temp Pulse Resp B/P Pulse Ox O2 Delivery O2 Flow Rate FiO2 01/05/17 07:30 98.4 60 18 118/69 95 Intake and Output 01/04/17 01/04/17 01/05/17 15:00 23:00 07:00 Intake Total 200 ml Output Total 700 ml Balance -500 ml Exam General: Well developed,adequately built, not in any acute distress . HEENT: Normocephalic, Atraumatic, No laceration or hematoma; Eyes: PEERL, Conjunctiva clear, Anicteric sclera Neck: Supple without any lymphadenopathy, nontender, no JVD, no carotid bruits, trachea midline, no thyromegaly Cardiac: S1, S2 auscultated, regular rhythm and rate, no mumurs or gallop Pulmonary: Normal respiratory effort. Chest clear to auscultation bilaterally, no adventitious breath sounds GI: Abdomen normal to inspection. Soft, non tender, non- distended, no masses, no rebound tenderness or guarding. Bowel sounds active on all four quadrants Genitourinary: Deferred Extremities: With right-sided weakness-improving. Left/leg motor strength 5 out of 5. Right arm/leg 3/5. No cyanosis, clubbing, or edema. Pulses [2+] bilaterally. Neurologic: Severe expressive aphasia. Right facial weakness. Awake and alert. Skin: Clean,dry, and intact. No ecchymosis, no rashes, or lesions Results Result Diagram: 01/02/17 0631 01/02/17 0631 Results 24 hrs Laboratory Tests Test 01/04/17 17:16 01/04/17 20:53 01/05/17 08:03 01/05/17 12:00 Bedside Glucose 130 98 125 168 Medications Medications Current Medications Diagnostic Test (Pha) (Accu-Chek) 1 ea 02 XX ; Start 01/02/17 at 02:00 Aspirin (Halfprin) 81 mg DAILY PO Last administered on 01/05/17 08:32; Admin Dose 81 MG; Start 01/02/17 at 09:00; Stop 03/26/17 at 08:59 Atorvastatin Calcium (Lipitor) 80 mg DAILY@21 PO Last administered on 20:52; Admin Dose 80 MG; Start 01/01/17 at 21:00 Clopidogrel Bisulfate (plaVIX) 75 mg DAILY PO Last administered on 01/05/17 08 :32; Admin Dose 75 MG; Start 01/02/17 at 09:00 Heparin Sodium (Porcine) (Heparin (5000 Units/0.5 ml)) 5,000 unit BID SC Last administered on 01/05/17 08:31; Admin Dose 5,000 UNIT; Start 01/01/17 at 21:00 Insulin Glargine (Lantus) 12 unit DAILY@08 SC Last administered on 01/05/17 08 :31; Admin Dose 12 UNIT; Start 01/02/17 at 08:00 Miscellaneous Information 1 ea NOTE XX ; Start 01/01/17 at 21:00 Glucose (Glutose) 15 gm Q15M PRN PO DECREASED GLUCOSE; Start 01/01/17 at 21:00 Glucose (Glutose) 22.5 gm Q15M PRN PO DECREASED GLUCOSE; Start 01/01/17 at 21: 00 Dextrose (D50w Syringe) 25 ml Q15M PRN IV DECREASED GLUCOSE; Start 01/01/17 at 21:00 Dextrose (D50w Syringe) 50 ml Q15M PRN IV DECREASED GLUCOSE; Start 01/01/17 at 21:00 Glucagon (Glucagen) 1 mg Q15M PRN IM DECREASED GLUCOSE; Start 01/01/17 at 21:00 Glucose (Glutose) 15 gm Q15M PRN BUCCAL DECREASED GLUCOSE; Start 01/01/17 at 21 :00 Docusate Sodium (Colace) 100 mg BID PO Last administered on 01/05/17 08:32; Admin Dose 100 MG; Start 01/02/17 at 09:00 Senna (Senokot) 1 tab HS PO Last administered on 01/04/17 20:52; Admin Dose 1 TAB; Start 01/02/17 at 21:00 Acetaminophen (Tylenol Tab) 650 mg Q4H PRN PO PAIN; Start 01/02/17 at 05:47 Magnesium Hydroxide (Milk Of Mag) 30 ml BID PRN PO CONSTIPATION Last administered on 01/03/17 08:32; Admin Dose 30 ML; Start 01/02/17 at 05:47 Famotidine (Pepcid) 20 mg BID PO Last administered on 01/05/17 08:32; Admin Dose 20 MG; Start 01/03/17 at 12:00 Lactulose (Enulose) 20 gm DAILY PRN PO CONSTIPATION; Start 01/03/17 at 15:00 NAMAN THOMPSON NP Jan 05, 2017 14:35
[2017-01-05 20:00] VITALS: BP 118/72; RESP 18
[2017-01-05] MEDS: ATORVASTATIN 80 MG TAB PO SCH (20:42)
[2017-01-05] MEDS: SENNA TAB PO SCH (20:42)
[2017-01-06] MEDS: ACCU-CHEK XX SCH (02:00)
[2017-01-06 04:00] VITALS: BP 118/76; RESP 18
[2017-01-06] MEDS: INSULIN ASPART [NOVOLOG] 3 ML PEN SC SCH ×4 (07:35→20:48)
[2017-01-06 07:44] VITALS: BP 121/73; RESP 18
[2017-01-06] MEDS: CLOPIDOGREL 75 MG TAB PO SCH (08:32)
[2017-01-06] MEDS: FAMOTIDINE 20 MG TAB PO SCH ×2 (08:32→20:39)
[2017-01-06] MEDS: DOCUSATE SODIUM 100 MG CAP PO SCH ×2 (08:32→20:39)
[2017-01-06] MEDS: ASPIRIN (EC) 81 MG TAB PO SCH (08:32)
[2017-01-06] MEDS: metFORMIN 500 MG TAB PO SCH ×2 (08:32→17:34)
[2017-01-06] MEDS: HEPARIN 5,000 UNIT/0.5 ML VIAL SC SCH ×2 (08:39→20:47)
[2017-01-06] MEDS: INSULIN GLARGINE [LANtus] 3 ML PEN SC SCH (08:40)
--- NOTE | 2017-01-06 11:25 | CONS ---
Date/Time of Note Date/Time of Note DATE: 01/06/17 TIME: 11:23 Assessment/Plan Assessment/Plan Additional Assessment/Plan 1.CVA-Acute/aphasia - no PFO identified, supportive care per neuro now 2.HTN - well Rx, con't med Rx. 3.HL - on therapy 4.DM - con't to keep euvolemic. 5. Bradycardia-intermittent with stable BP - no intervention needed. Consultation Date/Type/Reason Admit Date/Time Jan 01, 2017 at 18:30 Type of Consultation: cardiology Referring Provider: KRISTYN NORIEGA MD 24 HR Interval Summary Free Text/Dictation NO acute events - BP in good range - no CP, doubt ischemia. ROS: No fever, no chills, no nausea, no vomiting, no diarrhea/constipation No recent weight changes No chest pain, no PND, no orthopnea No dizziness, blurred vision No thirst, no heat or cold intolerance Exam/Review of Systems Vital Signs Vitals Vital Signs Date Time Temp Pulse Resp B/P Pulse Ox O2 Delivery O2 Flow Rate FiO2 01/06/17 07:44 97.7 57 18 121/73 96 Intake and Output 01/05/17 01/05/17 01/06/17 15:00 23:00 07:00 Intake Total 680 ml Output Total 400 ml Balance 680 ml -400 ml Exam General: WN/WD/NAD, AOx aphasia HEENT: Unicetric/atraumatic/EOMI (follow commands) NECK: JVD elevated, no thyromegaly Lymph: no lymphadenopathy HEART: regular with no S3, II/ systolic murmur at apex LUNGS: Coarse sounds ABD: soft, NT, ND, +BS : Intact Neuro: s/p CVA SKIN: chronic changes EXT: trace edema Results Result Diagram: 01/02/1763001/02/17 0631 Results 24 hrs Laboratory Tests Test 01/05/17 12:00 01/05/17 17:35 01/05/17 20:40 01/06/17 08:06 Bedside Glucose 168 101 103 121 Medications Medications Current Medications Diagnostic Test (Pha) (Accu-Chek) 1 XX ; Start 01/02/17 at 02:00 Aspirin (Halfprin) 81 mg DAILY PO Last administered on 01/06/17t 08:32; Admin Dose 81 MG; Start 01/02/17 at 09:00; Stop 03/26/17 at 08:59 Atorvastatin Calcium (Lipitor) 80 mg DAILY@21 PO Last administered on 20:42; Admin Dose 80 MG; Start 01/01/17 at 21:00 Clopidogrel Bisulfate (plaVIX) 75 mg DAILY PO Last administered on 01/06/17 08: 32; Admin Dose 75 MG; Start 01/02/17 at 09:00 Heparin Sodium (Porcine) (Heparin (5000 Units/0.5 ml)) 5,000 unit BID SC Last administered on 01/06/17 08:39; Admin Dose 5,000 UNIT; Start 01/01/17 at 21:00 Insulin Glargine (Lantus) 12 unit DAILY@08 SC Last administered on 01/06/17 08: 40; Admin Dose 12 UNIT; Start 01/02/17 at 08:00 Miscellaneous Information 1 ea NOTE XX ; Start 01/01/17 at 21:00 Glucose (Glutose) 15 gm Q15M PRN PO DECREASED GLUCOSE; Start 01/01/17 at 21:00 Glucose (Glutose) 22.5 gm Q15M PRN PO DECREASED GLUCOSE; Start 01/01/17 at 21: 00 Dextrose (D50w Syringe) 25 ml Q15M PRN IV DECREASED GLUCOSE; Start 01/01/17 at 21:00 Dextrose (D50w Syringe) 50 ml Q15M PRN IV DECREASED GLUCOSE; Start 01/01/17 at 21:00 Glucagon (Glucagen) 1 mg Q15M PRN IM DECREASED GLUCOSE; Start 01/01/17 at 21:00 Glucose (Glutose) 15 gm Q15M PRN BUCCAL DECREASED GLUCOSE; Start 01/01/17 at 21 :00 Docusate Sodium (Colace) 100 mg BID PO Last administered on 01/06/17 08:32; Admin Dose 100 MG; Start 01/02/17 at 09:00 Senna (Senokot) 1 tab HS PO Last administered on 01/05/17 20:42; Admin Dose 1 TAB; Start 01/02/17 at 21:00 Acetaminophen (Tylenol Tab) 650 mg Q4H PRN PO PAIN; Start 01/02/17 at 05:47 Magnesium Hydroxide (Milk Of Mag) 30 ml BID PRN PO CONSTIPATION Last administered on 01/03/17 08:32; Admin Dose 30 ML; Start 01/02/17 at 05:47 Famotidine (Pepcid) 20 mg BID PO Last administered on 01/06/17 08:32; Admin Dose 20 MG; Start 01/03/17 at 12:00 Lactulose (Enulose) 20 gm DAILY PRN PO CONSTIPATION; Start 01/03/17 at 15:00 NIALL ALONZO MD Jan 06, 2017 11:25
--- NOTE | 2017-01-06 12:31 | CONS ---
Date/Time of Note Date/Time of Note DATE: 01/06/17 TIME: 12:30 Consult Date/Type/Reason Admit Date/Time Jan 01, 2017 at 18:30 Type of Consultation: cardiology Ordering Provider: KRISTYN NORIEGA MD Subjective Comfortable, following commands Objective Lungs clear anteriorly abdomen soft Min mod assist ambulation Vital Signs Date Time Temp Pulse Resp B/P Pulse Ox O2 Delivery O2 Flow Rate FiO2 01/06/17 07:44 97.7 57 18 121/73 96 Intake and Output 01/05/17 01/05/17 01/06/17 15:00 23:00 07:00 Intake Total 680 ml Output Total 400 ml Balance 680 ml -400 ml Results/Medications Result Diagram: 01/02/1731 01/02/17 0631 Results 24 hrs Laboratory Tests Test 01/05/17 17:35 01/05/17 20:40 01/06/17 08:06 01/06/17 12:11 Bedside Glucose 101 103 121 132 Medications Current Medications Diagnostic Test (Pha) (Accu-Chek) 1 ea 02 XX ; Start 01/02/17 at 02:00 Aspirin (Halfprin) 81 mg DAILY PO Last administered on 01/06/17 08:32; Admin Dose 81 MG; Start 01/02/17 at 09:00; Stop 03/26/17 at 08:59 Atorvastatin Calcium (Lipitor) 80 mg DAILY@21 PO Last administered on 20:42; Admin Dose 80 MG; Start 01/01/17 at 21:00 Clopidogrel Bisulfate (plaVIX) 75 mg DAILY PO Last administered on 01/06/17 08: 32; Admin Dose 75 MG; Start 01/02/17 at 09:00 Heparin Sodium (Porcine) (Heparin (5000 Units/0.5 ml)) 5,000 unit BID SC Last administered on 01/06/17 08:39; Admin Dose 5,000 UNIT; Start 01/01/17 at 21:00 Insulin Glargine (Lantus) 12 unit DAILY@08 SC Last administered on 01/06/17 08: 40; Admin Dose 12 UNIT; Start 01/02/17 at 08:00 Miscellaneous Information 1 ea NOTE XX ; Start 01/01/17 at 21:00 Glucose (Glutose) 15 gm Q15M PRN PO DECREASED GLUCOSE; Start 01/01/17 at 21:00 Glucose (Glutose) 22.5 gm Q15M PRN PO DECREASED GLUCOSE; Start 01/01/17 at 21: 00 Dextrose (D50w Syringe) 25 ml Q15M PRN IV DECREASED GLUCOSE; Start 01/01/17 at 21:00 Dextrose (D50w Syringe) 50 ml Q15M PRN IV DECREASED GLUCOSE; Start 01/01/17 at 21:00 Glucagon (Glucagen) 1 mg Q15M PRN IM DECREASED GLUCOSE; Start 01/01/17 at 21:00 Glucose (Glutose) 15 gm Q15M PRN BUCCAL DECREASED GLUCOSE; Start 01/01/17 at 21 :00 Docusate Sodium (Colace) 100 mg BID PO Last administered on 01/06/17 08:32; Admin Dose 100 MG; Start 01/02/17 at 09:00 Senna (Senokot) 1 tab HS PO Last administered on 01/05/17 20:42; Admin Dose 1 TAB; Start 01/02/17 at 21:00 Acetaminophen (Tylenol Tab) 650 mg Q4H PRN PO PAIN; Start 01/02/17 at 05:47 Magnesium Hydroxide (Milk Of Mag) 30 ml BID PRN PO CONSTIPATION Last administered on 01/03/17 08:32; Admin Dose 30 ML; Start 01/02/17 at 05:47 Famotidine (Pepcid) 20 mg BID PO Last administered on 01/06/17 08:32; Admin Dose 20 MG; Start 01/03/17 at 12:00 Lactulose (Enulose) 20 gm DAILY PRN PO CONSTIPATION; Start 01/03/17 at 15:00 Assessment/Plan Additional Assessment/Plan Rehabilitation -left AUREA infarct CVA with Right sided weakness Patient motivated with activities making excellent progress continue treatment plan Aphasia and Dysphagia-continue speech therapy . Diabetes Mellitus type 2 Hypertension Hypercholesterolemia KRISTYN NORIEGA MD Jan 06, 2017 12:31
--- NOTE | 2017-01-06 13:36 | CONS ---
Date/Time of Note Date/Time of Note DATE: 01/06/17 TIME: 13:35 Assessment/Plan Assessment/Plan Chief Complaint/Hosp Course 1. Acute CVA with right sided weakness and expressive aphasia. With excellent improvement in symptoms. -Continue with ARU activities for functional regain. -Continue speech therapy to return to baseline. 2. Diabetes. A1c at 8.3. -Continue Accu-Cheks, ISS, Lantus and metformin. We will adjust if indicated. -Carbohydrate controlled, cardiac diet. 3. Hypercholesterolemia. -On statin 4.Essential HTN. Controlled. -We will monitor and intervene if indicated. 5. Debility secondary to #1. Improving. -Continue with physical therapy. DVT prophylaxis: Heparin Case discussed with Dr. Manriquez Problems: Consultation Date/Type/Reason Admit Date/Time Jan 01, 2017 at 18:30 Type of Consultation: cardiology Referring Provider: KRISTYN NORIEGA MD 24 HR Interval Summary Free Text/Dictation Patient with overall significant improvement in functional status. Has been actively participating with physical therapy. Exam/Review of Systems Vital Signs Vitals Vital Signs Date Time Temp Pulse Resp B/P Pulse Ox O2 Delivery O2 Flow Rate FiO2 01/06/17 07:44 97.7 57 18 121/73 96 Intake and Output 01/05/17 01/05/17 01/06/17 15:00 23:00 07:00 Intake Total 680 ml Output Total 400 ml Balance 680 ml -400 ml Exam General: Well developed,adequately built, not in any acute distress . HEENT: Normocephalic, Atraumatic, No laceration or hematoma; Eyes: PEERL, Conjunctiva clear, Anicteric sclera Neck: Supple without any lymphadenopathy, nontender, no JVD, no carotid bruits, trachea midline, no thyromegaly Cardiac: S1, S2 auscultated, regular rhythm and rate, no mumurs or gallop Pulmonary: Normal respiratory effort. Chest clear to auscultation bilaterally, no adventitious breath sounds GI: Abdomen normal to inspection. Soft, non tender, non- distended, no masses, no rebound tenderness or guarding. Bowel sounds active on all four quadrants Genitourinary: Deferred Extremities: With right-sided weakness-improving. Left/leg motor strength 5 out of 5. Right arm/leg 4/5. No cyanosis, clubbing, or edema. Pulses [2+] bilaterally. Neurologic: Severe expressive aphasia. Right facial weakness. Awake and alert. Skin: Clean,dry, and intact. No ecchymosis, no rashes, or lesions Results Result Diagram: 01/02/17 0631 01/02/17 0631 Results 24 hrs Laboratory Tests Test 01/05/17 17:35 01/05/17 20:40 01/06/17 08:06 01/06/17 12:11 Bedside Glucose 101 103 121 132 Medications Medications Current Medications Diagnostic Test (Pha) (Accu-Chek) 1 ea 02 XX ; Start 01/02/17 at 02:00 Aspirin (Halfprin) 81 mg DAILY PO Last administered on 01/06/17 08:32; Admin Dose 81 MG; Start 01/02/17 at 09:00; Stop 03/26/17 at 08:59 Atorvastatin Calcium (Lipitor) 80 mg DAILY@21 PO Last administered on 20:42; Admin Dose 80 MG; Start 01/01/17 at 21:00 Clopidogrel Bisulfate (plaVIX) 75 mg DAILY PO Last administered on 01/06/17 08: 32; Admin Dose 75 MG; Start 01/02/17 at 09:00 Heparin Sodium (Porcine) (Heparin (5000 Units/0.5 ml)) 5,000 unit BID SC Last administered on 01/06/17 08:39; Admin Dose 5,000 UNIT; Start 01/01/17 at 21:00 Insulin Glargine (Lantus) 12 unit DAILY@08 SC Last administered on 01/06/17 08: 40; Admin Dose 12 UNIT; Start 01/02/17 at 08:00 Miscellaneous Information 1 ea NOTE XX ; Start 01/01/17 at 21:00 Glucose (Glutose) 15 gm Q15M PRN PO DECREASED GLUCOSE; Start 01/01/17 at 21:00 Glucose (Glutose) 22.5 gm Q15M PRN PO DECREASED GLUCOSE; Start 01/01/17 at 21: 00 Dextrose (D50w Syringe) 25 ml Q15M PRN IV DECREASED GLUCOSE; Start 01/01/17 at 21:00 Dextrose (D50w Syringe) 50 ml Q15M PRN IV DECREASED GLUCOSE; Start 01/01/17 at 21:00 Glucagon (Glucagen) 1 mg Q15M PRN IM DECREASED GLUCOSE; Start 01/01/17 at 21:00 Glucose (Glutose) 15 gm Q15M PRN BUCCAL DECREASED GLUCOSE; Start 01/01/17 at 21 :00 Docusate Sodium (Colace) 100 mg BID PO Last administered on 01/06/17 08:32; Admin Dose 100 MG; Start 01/02/17 at 09:00 Senna (Senokot) 1 tab HS PO Last administered on 01/05/17 20:42; Admin Dose 1 TAB; Start 01/02/17 at 21:00 Acetaminophen (Tylenol Tab) 650 mg Q4H PRN PO PAIN; Start 01/02/17 at 05:47 Magnesium Hydroxide (Milk Of Mag) 30 ml BID PRN PO CONSTIPATION Last administered on 01/03/17 08:32; Admin Dose 30 ML; Start 01/02/17 at 05:47 Famotidine (Pepcid) 20 mg BID PO Last administered on 01/06/17 08:32; Admin Dose 20 MG; Start 01/03/17 at 12:00 Lactulose (Enulose) 20 gm DAILY PRN PO CONSTIPATION; Start 01/03/17 at 15:00 NAMAN THOMPSON NP Jan 06, 2017 13:36
[2017-01-06 14:00] VITALS: BP 123/76; RESP 18
[2017-01-06 20:00] VITALS: BP 117/65; RESP 18
[2017-01-06] MEDS: ATORVASTATIN 80 MG TAB PO SCH (20:39)
[2017-01-06] MEDS: SENNA TAB PO SCH (20:39)
[2017-01-07 02:00] VITALS: BP 93/71; RESP 18
[2017-01-07] MEDS: ACCU-CHEK XX SCH (02:00)
[2017-01-07] MEDS: INSULIN ASPART [NOVOLOG] 3 ML PEN SC SCH ×4 (07:35→21:00)
[2017-01-07 08:00] VITALS: BP 110/64; RESP 20
[2017-01-07] MEDS: INSULIN GLARGINE [LANtus] 3 ML PEN SC SCH (08:15)
[2017-01-07] MEDS: HEPARIN 5,000 UNIT/0.5 ML VIAL SC SCH ×2 (08:16→20:41)
[2017-01-07] MEDS: CLOPIDOGREL 75 MG TAB PO SCH (08:17)
[2017-01-07] MEDS: ASPIRIN (EC) 81 MG TAB PO SCH (08:17)
[2017-01-07] MEDS: metFORMIN 500 MG TAB PO SCH ×2 (08:17→17:27)
[2017-01-07] MEDS: FAMOTIDINE 20 MG TAB PO SCH ×2 (08:17→20:39)
[2017-01-07] MEDS: DOCUSATE SODIUM 100 MG CAP PO SCH ×2 (08:18→21:00)
--- NOTE | 2017-01-07 11:22 | CONS ---
Date/Time of Note Date/Time of Note DATE: 01/07/17 TIME: 11:21 Consult Date/Type/Reason Admit Date/Time Jan 01, 2017 at 18:30 Type of Consultation: cardiology Ordering Provider: KRISTYN NORIEGA MD Subjective Patient comfortable, following command Objective Lungs clear abdomen soft Min assist ambulation Vital Signs Date Time Temp Pulse Resp B/P Pulse Ox O2 Delivery O2 Flow Rate FiO2 01/07/17 08:00 98.4 80 20 110/64 98 Intake and Output 01/06/17 01/06/17 01/07/17 15:00 23:00 07:00 Intake Total 800 ml 400 ml 260 ml Output Total 200 ml Balance 800 ml 400 ml 60 ml Results/Medications Results 24 hrs Laboratory Tests Test 01/06/17 12:11 01/06/17 17:18 01/06/17 20:47 01/07/17 08:04 Bedside Glucose 132 82 106 112 Medications Current Medications Diagnostic Test (Pha) (Accu-Chek) 1 ea 02 XX ; Start 01/02/17 at 02:00 Aspirin (Halfprin) 81 mg DAILY PO Last administered on 01/07/17 08:17; Admin Dose 81 MG; Start 01/02/17 at 09:00; Stop 03/26/17 at 08:59 Atorvastatin Calcium (Lipitor) 80 mg DAILY@21 PO Last administered on 01/06/17 20:39; Admin Dose 80 MG; Start 01/01/17 at 21:00 Clopidogrel Bisulfate (plaVIX) 75 mg DAILY PO Last administered on 01/07/17 08: 17; Admin Dose 75 MG; Start 01/02/17 at 09:00 Heparin Sodium (Porcine) (Heparin (5000 Units/0.5 ml)) 5,000 unit BID SC Last administered on 01/07/17 08:16; Admin Dose 5,000 UNIT; Start 01/01/17 at 21:00 Insulin Glargine (Lantus) 12 unit DAILY@08 SC Last administered on 01/07/17 08: 15; Admin Dose 12 UNIT; Start 01/02/17 at 08:00 Miscellaneous Information 1 ea NOTE XX ; Start 01/01/17 at 21:00 Glucose (Glutose) 15 gm Q15M PRN PO DECREASED GLUCOSE; Start 01/01/17 at 21:00 Glucose (Glutose) 22.5 gm Q15M PRN PO DECREASED GLUCOSE; Start 01/01/17 at 21: 00 Dextrose (D50w Syringe) 25 ml Q15M PRN IV DECREASED GLUCOSE; Start 01/01/17 at 21:00 Dextrose (D50w Syringe) 50 ml Q15M PRN IV DECREASED GLUCOSE; Start 01/01/17 at 21:00 Glucagon (Glucagen) 1 mg Q15M PRN IM DECREASED GLUCOSE; Start 01/01/17 at 21:00 Glucose (Glutose) 15 gm Q15M PRN BUCCAL DECREASED GLUCOSE; Start 01/01/17 at 21 :00 Docusate Sodium (Colace) 100 mg BID PO Last administered on 01/07/17 08:18; Admin Dose 100 MG; Start 01/02/17 at 09:00 Senna (Senokot) 1 tab HS PO Last administered on 01/06/17 20:39; Admin Dose 1 TAB; Start 01/02/17 at 21:00 Acetaminophen (Tylenol Tab) 650 mg Q4H PRN PO PAIN; Start 01/02/17 at 05:47 Magnesium Hydroxide (Milk Of Mag) 30 ml BID PRN PO CONSTIPATION Last administered on 01/03/17 08:32; Admin Dose 30 ML; Start 01/02/17 at 05:47 Famotidine (Pepcid) 20 mg BID PO Last administered on 01/07/17 08:17; Admin Dose 20 MG; Start 01/03/17 at 12:00 Lactulose (Enulose) 20 gm DAILY PRN PO CONSTIPATION; Start 01/03/17 at 15:00 Assessment/Plan Additional Assessment/Plan Rehabilitation -left AUREA infarct CVA with Right sided weakness Self-care mobility continues to improve. Speech actively working with patient with regards to communication Aphasia and Dysphagia-continue speech therapy . Diabetes Mellitus type 2 Hypertension Hypercholesterolemia KRISTYN NORIEGA MD Jan 07, 2017 11:22
[2017-01-07 14:00] VITALS: BP 108/76; RESP 20
--- NOTE | 2017-01-07 14:24 | CONS ---
Date/Time of Note Date/Time of Note DATE: 01/07/17 TIME: 14:24 Assessment/Plan Assessment/Plan Chief Complaint/Hosp Course 1. Acute CVA with right sided weakness and expressive aphasia. With excellent improvement in symptoms. -Continue with ARU activities for functional regain. -Continue speech therapy to return to baseline. 2. Diabetes. A1c at 8.3. -Continue Accu-Cheks, ISS, Lantus and metformin. We will adjust if indicated. -Carbohydrate controlled, cardiac diet. 3. Hypercholesterolemia. -On statin 4.Essential HTN. Controlled. -We will monitor and intervene if indicated. 5. Debility secondary to #1. Improving. -Continue with physical therapy. DVT prophylaxis: Heparin Case discussed with Dr. Manriquez Problems: Consultation Date/Type/Reason Admit Date/Time Jan 01, 2017 at 18:30 Type of Consultation: cardiology Referring Provider: KRISTYN NORIEGA MD 24 HR Interval Summary Free Text/Dictation No acute overnight episodes. Has been participating in physical therapy. Exam/Review of Systems Vital Signs Vitals Vital Signs Date Time Temp Pulse Resp B/P Pulse Ox O2 Delivery O2 Flow Rate FiO2 01/07/17 08:00 98.4 80 20 110/64 98 Intake and Output 01/06/17 01/06/17 01/07/17 14:59 22:59 06:59 Intake Total 800 ml 400 ml 260 ml Output Total 200 ml Balance 800 ml 400 ml 60 ml Exam General: Well developed,adequately built, not in any acute distress . HEENT: Normocephalic, Atraumatic, No laceration or hematoma; Eyes: PEERL, Conjunctiva clear, Anicteric sclera Neck: Supple without any lymphadenopathy, nontender, no JVD, no carotid bruits, trachea midline, no thyromegaly Cardiac: S1, S2 auscultated, regular rhythm and rate, no mumurs or gallop Pulmonary: Normal respiratory effort. Chest clear to auscultation bilaterally, no adventitious breath sounds GI: Abdomen normal to inspection. Soft, non tender, non- distended, no masses, no rebound tenderness or guarding. Bowel sounds active on all four quadrants Genitourinary: Deferred Extremities: With right-sided weakness-improving. Left/leg motor strength 5 out of 5. Right arm/leg 4/5. No cyanosis, clubbing, or edema. Pulses [2+] bilaterally. Neurologic: Severe expressive aphasia. Right facial weakness. Awake and alert. Skin: Clean,dry, and intact. No ecchymosis, no rashes, or lesions Results Results 24 hrs Laboratory Tests Test 01/06/17 17:18 01/06/17 20:47 01/07/17 08:04 01/07/17 12:02 Bedside Glucose 82 106 112 116 Medications Medications Current Medications Diagnostic Test (Pha) (Accu-Chek) 1 ea 02 XX ; Start 01/02/17 at 02:00 Aspirin (Halfprin) 81 mg DAILY PO Last administered on 01/07/17 08:17; Admin Dose 81 MG; Start 01/02/17 at 09:00; Stop 03/26/17 at 08:59 Atorvastatin Calcium (Lipitor) 80 mg DAILY@21 PO Last administered on 01/06/17 20:39; Admin Dose 80 MG; Start 01/01/17 at 21:00 Clopidogrel Bisulfate (plaVIX) 75 mg DAILY PO Last administered on 01/07/17 08: 17; Admin Dose 75 MG; Start 01/02/17 at 09:00 Heparin Sodium (Porcine) (Heparin (5000 Units/0.5 ml)) 5,000 unit BID SC Last administered on 01/07/17 08:16; Admin Dose 5,000 UNIT; Start 01/01/17 at 21:00 Insulin Glargine (Lantus) 12 unit DAILY@08 SC Last administered on 01/07/17 08: 15; Admin Dose 12 UNIT; Start 01/02/17 at 08:00 Miscellaneous Information 1 ea NOTE XX ; Start 01/01/17 at 21:00 Glucose (Glutose) 15 gm Q15M PRN PO DECREASED GLUCOSE; Start 01/01/17 at 21:00 Glucose (Glutose) 22.5 gm Q15M PRN PO DECREASED GLUCOSE; Start 01/01/17 at 21: 00 Dextrose (D50w Syringe) 25 ml Q15M PRN IV DECREASED GLUCOSE; Start 01/01/17 at 21:00 Dextrose (D50w Syringe) 50 ml Q15M PRN IV DECREASED GLUCOSE; Start 01/01/17 at 21:00 Glucagon (Glucagen) 1 mg Q15M PRN IM DECREASED GLUCOSE; Start 7/27/17 at 21:00 Glucose (Glutose) 15 gm Q15M PRN BUCCAL DECREASED GLUCOSE; Start 01/01/17 at 21 :00 Docusate Sodium (Colace) 100 mg BID PO Last administered on 01/07/17 08:18; Admin Dose 100 MG; Start 01/02/17 at 09:00 Senna (Senokot) 1 tab HS PO Last administered on 01/06/17 20:39; Admin Dose 1 TAB; Start 01/02/17 at 21:00 Acetaminophen (Tylenol Tab) 650 mg Q4H PRN PO PAIN; Start 01/02/17 at 05:47 Magnesium Hydroxide (Milk Of Mag) 30 ml BID PRN PO CONSTIPATION Last administered on 01/03/17 08:32; Admin Dose 30 ML; Start 01/02/17 at 05:47 Famotidine (Pepcid) 20 mg BID PO Last administered on 01/07/17 08:17; Admin Dose 20 MG; Start 01/03/17 at 12:00 Lactulose (Enulose) 20 gm DAILY PRN PO CONSTIPATION; Start 01/03/17 at 15:00 NAMAN THOMPSON NP Jan 07, 2017 14:24
--- NOTE | 2017-01-07 14:31 | CONS ---
Date/Time of Note Date/Time of Note DATE: 01/07/17 TIME: 14:29 Assessment/Plan Assessment/Plan Chief Complaint/Hosp Course IMP: 1.CVA-Acute/aphasia 2.HTN 3.HL 4.DM 5. BRadycardia-intermittent with atble BP Recc: -S/P [place] with no definite findings of intra-cardiac source of embolus and no PFO or other inter-atrial septal defect -Continue plavix/asa -continue statin -PT/OT Problems: Consultation Date/Type/Reason Admit Date/Time Jan 01, 2017 at 18:30 Initial Consult Date 01/01/2017 Type of Consultation: cardiology Reason for Consultation [id number] Referring Provider: KRISTYN NORIEGA MD Exam/Review of Systems Vital Signs Vitals Vital Signs Date Time Temp Pulse Resp B/P Pulse Ox O2 Delivery O2 Flow Rate FiO2 01/07/17 08:00 98.4 80 20 110/64 98 Intake and Output 01/06/17 01/06/17 01/07/17 15:00 23:00 07:00 Intake Total 800 ml 400 ml 260 ml Output Total 200 ml Balance 800 ml 400 ml 60 ml Exam Review of Systems: CONSTITUTIONAL: No fevers, chills. PULMONARY: No sob CARDIOVASCULAR: No chest pain/palpitations GASTROINTESTINAL: No nausea/vomiting. GENITOURINARY: No hematuria/dysuria. MUSCULOSKELETAL: No myagias/arthalgias. PSYCHIATRIC: The patient denies depression. NEUROLOGIC: aphasic Constitutional: alert Psych: no complaints Head: normocephalic ENMT: mucosa pink and moist Respiratory: diminished breath sounds Cardiovascular: regular rate and rhythm Gastrointestinal: non-tender, soft Musculoskeletal: muscle tone Extremities: edema (none) Neurological: other (aphasic) Results Results 24 hrs Laboratory Tests Test 01/06/17 17:18 01/06/17 20:47 01/07/17 08:04 01/07/17 12:02 Bedside Glucose 82 106 112 116 Medications Medications Current Medications Diagnostic Test (Pha) (Accu-Chek) 1 XX ; Start 01/02/17 at 02:00 Aspirin (Halfprin) 81 mg DAILY PO Last administered on 01/07/17t 08:17; Admin Dose 81 MG; Start 01/02/17 at 09:00; Stop 03/26/17 at 08:59 Atorvastatin Calcium (Lipitor) 80 mg DAILY@21 PO Last administered on 01/06/17 20:39; Admin Dose 80 MG; Start 01/01/17 at 21:00 Clopidogrel Bisulfate (plaVIX) 75 mg DAILY PO Last administered on 01/07/17 08: 17; Admin Dose 75 MG; Start 01/02/17 at 09:00 Heparin Sodium (Porcine) (Heparin (5000 Units/0.5 ml)) 5,000 unit BID SC Last administered on 01/07/17 08:16; Admin Dose 5,000 UNIT; Start 01/01/17 at 21:00 Insulin Glargine (Lantus) 12 unit DAILY@08 SC Last administered on 01/07/17 08: 15; Admin Dose 12 UNIT; Start 01/02/17 at 08:00 Miscellaneous Information 1 ea NOTE XX ; Start 01/01/17 at 21:00 Glucose (Glutose) 15 gm Q15M PRN PO DECREASED GLUCOSE; Start 01/01/17 at 21:00 Glucose (Glutose) 22.5 gm Q15M PRN PO DECREASED GLUCOSE; Start 01/01/17 at 21: 00 Dextrose (D50w Syringe) 25 ml Q15M PRN IV DECREASED GLUCOSE; Start 01/01/17 at 21:00 Dextrose (D50w Syringe) 50 ml Q15M PRN IV DECREASED GLUCOSE; Start 01/01/17 at 21:00 Glucagon (Glucagen) 1 mg Q15M PRN IM DECREASED GLUCOSE; Start 01/01/17 at 21:00 Glucose (Glutose) 15 gm Q15M PRN BUCCAL DECREASED GLUCOSE; Start 01/01/17 at 21 :00 Docusate Sodium (Colace) 100 mg BID PO Last administered on 01/07/17 08:18; Admin Dose 100 MG; Start 01/02/17 at 09:00 Senna (Senokot) 1 tab HS PO Last administered on 01/06/17 20:39; Admin Dose 1 TAB; Start 01/02/17 at 21:00 Acetaminophen (Tylenol Tab) 650 mg Q4H PRN PO PAIN; Start 01/02/17 at 05:47 Magnesium Hydroxide (Milk Of Mag) 30 ml BID PRN PO CONSTIPATION Last administered on 01/03/17 08:32; Admin Dose 30 ML; Start 01/02/17 at 05:47 Famotidine (Pepcid) 20 mg BID PO Last administered on 01/07/17 08:17; Admin Dose 20 MG; Start 01/03/17 at 12:00 Lactulose (Enulose) 20 gm DAILY PRN PO CONSTIPATION; Start 01/03/17 at 15:00 MATTHIEU TAYLOR Jan 07, 2017 14:31
[2017-01-07 20:00] VITALS: BP 113/69; RESP 18
[2017-01-07] MEDS: ATORVASTATIN 80 MG TAB PO SCH (20:39)
[2017-01-07] MEDS: SENNA TAB PO SCH (21:00)
[2017-01-08 02:00] VITALS: BP 115/70; RESP 19
[2017-01-08] MEDS: ACCU-CHEK XX SCH (02:39)
[2017-01-08] MEDS: MAGNESIUM HYDROXIDE 30ML CUP PO PRN (06:39)
[2017-01-08 07:34] VITALS: BP 115/56; RESP 15
[2017-01-08] MEDS: INSULIN ASPART [NOVOLOG] 3 ML PEN SC SCH ×4 (07:35→21:00)
[2017-01-08] MEDS: INSULIN GLARGINE [LANtus] 3 ML PEN SC SCH (08:22)
[2017-01-08] MEDS: CLOPIDOGREL 75 MG TAB PO SCH (08:22)
[2017-01-08] MEDS: DOCUSATE SODIUM 100 MG CAP PO SCH ×2 (08:22→20:14)
[2017-01-08] MEDS: ASPIRIN (EC) 81 MG TAB PO SCH (08:22)
[2017-01-08] MEDS: metFORMIN 500 MG TAB PO SCH ×2 (08:23→17:17)
[2017-01-08] MEDS: FAMOTIDINE 20 MG TAB PO SCH ×2 (08:25→20:14)
[2017-01-08] MEDS: HEPARIN 5,000 UNIT/0.5 ML VIAL SC SCH ×2 (08:25→20:22)
--- NOTE | 2017-01-08 11:38 | CONS ---
Date/Time of Note Date/Time of Note DATE: 01/08/17 TIME: 11:37 Consult Date/Type/Reason Admit Date/Time Jan 01, 2017 at 18:30 Type of Consultation: cardiology Ordering Provider: KRISTYN NORIEGA MD Subjective Patient with significant improvements with verbal output Objective Lungs clear abdomen soft Minimal assist Ambien Vital Signs Date Time Temp Pulse Resp B/P Pulse Ox O2 Delivery O2 Flow Rate FiO2 01/08/17 07:34 98.0 59 15 115/56 97 Intake and Output 01/07/17 01/07/17 01/08/17 15:00 23:00 07:00 Intake Total 400 ml 880 ml 1020 ml Output Total 950 ml 200 ml 250 ml Balance -550 ml 680 ml 770 ml Results/Medications Results 24 hrs Laboratory Tests Test 01/07/17 12:02 01/07/17 17:08 01/07/17 20:17 01/08/17 07:51 Bedside Glucose 116 101 112 114 Test 01/08/17 11:25 Bedside Glucose 122 Medications Current Medications Diagnostic Test (Pha) (Accu-Chek) 1 ea 02 XX Last administered on 01/08/17 02: 39; Admin Dose 1 EA; Start 01/02/17 at 02:00 Aspirin (Halfprin) 81 mg DAILY PO Last administered on 01/08/17 08:22; Admin Dose 81 MG; Start 01/02/17 at 09:00; Stop 03/26/17 at 08:59 Atorvastatin Calcium (Lipitor) 80 mg DAILY@21 PO Last administered on 01/07/17 20:39; Admin Dose 80 MG; Start 01/01/17 at 21:00 Clopidogrel Bisulfate (plaVIX) 75 mg DAILY PO Last administered on 01/08/17 08: 22; Admin Dose 75 MG; Start 01/02/17 at 09:00 Heparin Sodium (Porcine) (Heparin (5000 Units/0.5 ml)) 5,000 unit BID SC Last administered on 01/08/17 08:25; Admin Dose 5,000 UNIT; Start 01/01/17 at 21:00 Insulin Glargine (Lantus) 12 unit DAILY@08 SC Last administered on 01/08/17 08: 22; Admin Dose 12 UNIT; Start 01/02/17 at 08:00 Miscellaneous Information 1 ea NOTE XX ; Start 01/01/17 at 21:00 Glucose (Glutose) 15 gm Q15M PRN PO DECREASED GLUCOSE; Start 01/01/17 at 21:00 Glucose (Glutose) 22.5 gm Q15M PRN PO DECREASED GLUCOSE; Start 01/01/17 at 21: 00 Dextrose (D50w Syringe) 25 ml Q15M PRN IV DECREASED GLUCOSE; Start 01/01/17 at 21:00 Dextrose (D50w Syringe) 50 ml Q15M PRN IV DECREASED GLUCOSE; Start 01/01/17 at 21:00 Glucagon (Glucagen) 1 mg Q15M PRN IM DECREASED GLUCOSE; Start 01/01/17 at 21:00 Glucose (Glutose) 15 gm Q15M PRN BUCCAL DECREASED GLUCOSE; Start 01/01/17 at 21 :00 Docusate Sodium (Colace) 100 mg BID PO Last administered on 01/08/17 08:22; Admin Dose 100 MG; Start 01/02/17 at 09:00 Senna (Senokot) 1 tab HS PO Last administered on 01/06/17 20:39; Admin Dose 1 TAB; Start 01/02/17 at 21:00 Acetaminophen (Tylenol Tab) 650 mg Q4H PRN PO PAIN; Start 01/02/17 at 05:47 Magnesium Hydroxide (Milk Of Mag) 30 ml BID PRN PO CONSTIPATION Last administered on 01/08/17 06:39; Admin Dose 30 ML; Start 01/02/17 at 05:47 Famotidine (Pepcid) 20 mg BID PO Last administered on 01/08/17 08:25; Admin Dose 20 MG; Start 01/03/17 at 12:00 Lactulose (Enulose) 20 gm DAILY PRN PO CONSTIPATION; Start 01/03/17 at 15:00 Assessment/Plan Additional Assessment/Plan Rehabilitation -left AUREA infarct CVA with Right sided weakness Excellent progress with rehab program Aphasia and Dysphagia-continue speech therapy-patient with continued improvement with speech . Diabetes Mellitus type 2 Hypertension Hypercholesterolemia KRISTYN NORIEGA MD Jan 08, 2017 11:38
--- NOTE | 2017-01-08 12:21 | CONS ---
Date/Time of Note Date/Time of Note DATE: 01/08/17 TIME: 12:19 Assessment/Plan Assessment/Plan Chief Complaint/Hosp Course IMP: 1.CVA-Acute/aphasia 2.HTN 3.HL 4.DM 5. BRadycardia-intermittent with atble BP Recc: -S/P [place] with no definite findings of intra-cardiac source of embolus and no PFO or other inter-atrial septal defect -Continue plavix/asa -continue statin -PT/OT Problems: Consultation Date/Type/Reason Admit Date/Time Jan 01, 2017 at 18:30 Initial Consult Date 01/01/2017 Type of Consultation: cardiology Reason for Consultation bradycardia Referring Provider: KRISTYN NORIEGA MD Exam/Review of Systems Vital Signs Vitals Vital Signs Date Time Temp Pulse Resp B/P Pulse Ox O2 Delivery O2 Flow Rate FiO2 01/08/17 07:34 98.0 59 15 115/56 97 Intake and Output 01/07/17 01/07/17 01/08/17 15:00 23:00 07:00 Intake Total 400 ml 880 ml 1020 ml Output Total 950 ml 200 ml 250 ml Balance -550 ml 680 ml 770 ml Exam Review of Systems: CONSTITUTIONAL: No fevers, chills. PULMONARY: No sob CARDIOVASCULAR: No chest pain/palpitations GASTROINTESTINAL: No nausea/vomiting. GENITOURINARY: No hematuria/dysuria. MUSCULOSKELETAL: No myagias/arthalgias. PSYCHIATRIC: The patient denies depression. NEUROLOGIC: aphasia Constitutional: alert Psych: no complaints Head: normocephalic ENMT: mucosa pink and moist Neck: jvd (8-9 cm water), supple Respiratory: diminished breath sounds (at bases/B) Cardiovascular: regular rate and rhythm Gastrointestinal: non-tender, soft Musculoskeletal: muscle tone (normAL) Extremities: edema (NONE) Neurological: other (APHASIC-IMPOVING SLOWLY) Results Results 24 hrs Laboratory Tests Test 01/07/17 17:08 01/07/17 20:17 01/08/17 07:51 01/08/17 11:25 Bedside Glucose 101 112 114 122 Medications Medications Current Medications Diagnostic Test (Pha) (Accu-Chek) 1 ea 02 XX Last administered on 01/08/17t 02: 39; Admin Dose 1 EA; Start 01/02/17 at 02:00 Aspirin (Halfprin) 81 mg DAILY PO Last administered on 01/08/17 08:22; Admin Dose 81 MG; Start 01/02/17 at 09:00; Stop 03/26/17 at 08:59 Atorvastatin Calcium (Lipitor) 80 mg DAILY@21 PO Last administered on 01/07/17 20:39; Admin Dose 80 MG; Start 01/01/17 at 21:00 Clopidogrel Bisulfate (plaVIX) 75 mg DAILY PO Last administered on 01/08/17 08: 22; Admin Dose 75 MG; Start 01/02/17 at 09:00 Heparin Sodium (Porcine) (Heparin (5000 Units/0.5 ml)) 5,000 unit BID SC Last administered on 01/08/17 08:25; Admin Dose 5,000 UNIT; Start 01/01/17 at 21:00 Insulin Glargine (Lantus) 12 unit DAILY@08 SC Last administered on 01/08/17 08: 22; Admin Dose 12 UNIT; Start 01/02/17 at 08:00 Miscellaneous Information 1 ea NOTE XX ; Start 01/01/17 at 21:00 Glucose (Glutose) 15 gm Q15M PRN PO DECREASED GLUCOSE; Start 01/01/17 at 21:00 Glucose (Glutose) 22.5 gm Q15M PRN PO DECREASED GLUCOSE; Start 01/01/17 at 21: 00 Dextrose (D50w Syringe) 25 ml Q15M PRN IV DECREASED GLUCOSE; Start 01/01/17 at 21:00 Dextrose (D50w Syringe) 50 ml Q15M PRN IV DECREASED GLUCOSE; Start 01/01/17 at 21:00 Glucagon (Glucagen) 1 mg Q15M PRN IM DECREASED GLUCOSE; Start 01/01/17 at 21:00 Glucose (Glutose) 15 gm Q15M PRN BUCCAL DECREASED GLUCOSE; Start 01/01/17 at 21 :00 Docusate Sodium (Colace) 100 mg BID PO Last administered on 01/08/17 08:22; Admin Dose 100 MG; Start 01/02/17 at 09:00 Senna (Senokot) 1 tab HS PO Last administered on 01/06/17 20:39; Admin Dose 1 TAB; Start 01/02/17 at 21:00 Acetaminophen (Tylenol Tab) 650 mg Q4H PRN PO PAIN; Start 01/02/17 at 05:47 Magnesium Hydroxide (Milk Of Mag) 30 ml BID PRN PO CONSTIPATION Last administered on 01/08/17 06:39; Admin Dose 30 ML; Start 01/02/17 at 05:47 Famotidine (Pepcid) 20 mg BID PO Last administered on 01/08/17 08:25; Admin Dose 20 MG; Start 01/03/17 at 12:00 Lactulose (Enulose) 20 gm DAILY PRN PO CONSTIPATION; Start 01/03/17 at 15:00 MATTHIEU TAYLOR Jan 08, 2017 12:21
--- NOTE | 2017-01-08 13:49 | PN ---
Date/Time of Note Date/Time of Note DATE: 01/08/17 TIME: 13:48 Assessment/Plan VTE Prophylaxis VTE Prophylaxis Intervention: heparin Lines/Catheters IV [facility]from [facility] Urinary Cath still in place: No Assessment/Plan Chief Complaint/Hosp Course 1. Acute CVA with right sided weakness and expressive aphasia. With excellent improvement in symptoms. -Continue with ARU activities for functional regain. -Continue speech therapy to return to baseline. 2. Diabetes. A1c at 8.3. -Continue Accu-Cheks, ISS, Lantus and metformin. We will adjust if indicated. -Carbohydrate controlled, cardiac diet. 3. Hypercholesterolemia. -On statin 4.Essential HTN. Controlled. -We will monitor and intervene if indicated. 5. Debility secondary to #1. Improving. -Continue with physical therapy. DVT prophylaxis: Heparin Case discussed with Dr. Manriquez Problems: Subjective 24 Hr Interval Summary Free Text/Dictation Overall with significant improvement in symptoms. Exam/Review of Systems Vital Signs Vitals Vital Signs Date Time Temp Pulse Resp B/P Pulse Ox O2 Delivery O2 Flow Rate FiO2 01/08/17 07:34 98.0 59 15 115/56 97 Intake and Output 01/07/17 01/07/17 01/08/17 15:00 23:00 07:00 Intake Total 400 ml 880 ml 1020 ml Output Total 950 ml 200 ml 250 ml Balance -550 ml 680 ml 770 ml Exam General: Well developed,adequately built, not in any acute distress . HEENT: Normocephalic, Atraumatic, No laceration or hematoma; Eyes: PEERL, Conjunctiva clear, Anicteric sclera Neck: Supple without any lymphadenopathy, nontender, no JVD, no carotid bruits, trachea midline, no thyromegaly Cardiac: S1, S2 auscultated, regular rhythm and rate, no mumurs or gallop Pulmonary: Normal respiratory effort. Chest clear to auscultation bilaterally, no adventitious breath sounds GI: Abdomen normal to inspection. Soft, non tender, non- distended, no masses, no rebound tenderness or guarding. Bowel sounds active on all four quadrants Genitourinary: Deferred Extremities: With right-sided weakness-improving. Left/leg motor strength 5 out of 5. Right arm/leg 4/5. No cyanosis, clubbing, or edema. Pulses [2+] bilaterally. Neurologic: expressive aphasia-improving. Right facial weakness. Awake and alert. Skin: Clean,dry, and intact. No ecchymosis, no rashes, or lesions Results Results 24 hrs Laboratory Tests Test 01/07/17 17:08 01/07/17 20:17 01/08/17 07:51 01/08/17 11:25 Bedside Glucose 101 112 114 122 Medications Medications Current Medications Diagnostic Test (Pha) (Accu-Chek) 1 ea 02 XX Last administered on 01/08/17 02: 39; Admin Dose 1 EA; Start 01/02/17 at 02:00 Aspirin (Halfprin) 81 mg DAILY PO Last administered on 01/08/17 08:22; Admin Dose 81 MG; Start 01/02/17 at 09:00; Stop 03/26/17 at 08:59 Atorvastatin Calcium (Lipitor) 80 mg DAILY@21 PO Last administered on 01/07/17 20:39; Admin Dose 80 MG; Start 01/01/17 at 21:00 Clopidogrel Bisulfate (plaVIX) 75 mg DAILY PO Last administered on 01/08/17 08: 22; Admin Dose 75 MG; Start 01/02/17 at 09:00 Heparin Sodium (Porcine) (Heparin (5000 Units/0.5 ml)) 5,000 unit BID SC Last administered on 01/08/17 08:25; Admin Dose 5,000 UNIT; Start 01/01/17 at 21:00 Insulin Glargine (Lantus) 12 unit DAILY@08 SC Last administered on 01/08/17 08: 22; Admin Dose 12 UNIT; Start 01/02/17 at 08:00 Miscellaneous Information 1 ea NOTE XX ; Start 01/01/17 at 21:00 Glucose (Glutose) 15 gm Q15M PRN PO DECREASED GLUCOSE; Start 01/01/17 at 21:00 Glucose (Glutose) 22.5 gm Q15M PRN PO DECREASED GLUCOSE; Start 01/01/17 at 21: 00 Dextrose (D50w Syringe) 25 ml Q15M PRN IV DECREASED GLUCOSE; Start 01/01/17 at 21:00 Dextrose (D50w Syringe) 50 ml Q15M PRN IV DECREASED GLUCOSE; Start 01/01/17 at 21:00 Glucagon (Glucagen) 1 mg Q15M PRN IM DECREASED GLUCOSE; Start 01/01/17 at 21:00 Glucose (Glutose) 15 gm Q15M PRN BUCCAL DECREASED GLUCOSE; Start 01/01/17 at 21 :00 Docusate Sodium (Colace) 100 mg BID PO Last administered on 01/08/17 08:22; Admin Dose 100 MG; Start 01/02/17 at 09:00 Senna (Senokot) 1 tab HS PO Last administered on 01/06/17 20:39; Admin Dose 1 TAB; Start 01/02/17 at 21:00 Acetaminophen (Tylenol Tab) 650 mg Q4H PRN PO PAIN; Start 01/02/17 at 05:47 Magnesium Hydroxide (Milk Of Mag) 30 ml BID PRN PO CONSTIPATION Last administered on 01/08/17 06:39; Admin Dose 30 ML; Start 01/02/17 at 05:47 Famotidine (Pepcid) 20 mg BID PO Last administered on 01/08/17 08:25; Admin Dose 20 MG; Start 01/03/17 at 12:00 Lactulose (Enulose) 20 gm DAILY PRN PO CONSTIPATION; Start 01/03/17 at 15:00 NAMAN THOMPSON NP Jan 08, 2017 13:49
[2017-01-08 15:39] VITALS: BP 111/70; RESP 15
[2017-01-08 19:20] VITALS: BP 109/72; RESP 20
[2017-01-08] MEDS: ATORVASTATIN 80 MG TAB PO SCH (20:14)
[2017-01-08] MEDS: SENNA TAB PO SCH (20:14)
[2017-01-09] MEDS: ACCU-CHEK XX SCH (02:00)
[2017-01-09 02:29] VITALS: BP 120/74; RESP 19
[2017-01-09] MEDS: INSULIN ASPART [NOVOLOG] 3 ML PEN SC SCH ×3 (07:35→17:35)
[2017-01-09] MEDS: INSULIN GLARGINE [LANtus] 3 ML PEN SC SCH (08:06)
[2017-01-09] MEDS: CLOPIDOGREL 75 MG TAB PO SCH (08:08)
[2017-01-09] MEDS: FAMOTIDINE 20 MG TAB PO SCH (08:08)
[2017-01-09] MEDS: HEPARIN 5,000 UNIT/0.5 ML VIAL SC SCH (08:08)
[2017-01-09] MEDS: ASPIRIN (EC) 81 MG TAB PO SCH (08:08)
[2017-01-09] MEDS: DOCUSATE SODIUM 100 MG CAP PO SCH (08:08)
[2017-01-09] MEDS: metFORMIN 500 MG TAB PO SCH ×2 (08:09→17:55)
[2017-01-09 08:21] VITALS: BP 116/71; RESP 18
--- NOTE | 2017-01-09 12:51 | DS ---
Date/Time of Note Date/Time of Note DATE: 01/09/17 TIME: 12:49 Discharge Summary Admission/Discharge Info Admit Date/Time Jan 01, 2017 at 18:30 Discharge Date/Time Discharge Diagnosis 1.Left AUREA infarct CVA with Right sided weakness 2. Aphasia and Dysphagia, improved 3. Hypertension 4. Hypercholesterolemia 5. Diabetes Mellitus type 2 6. Improvement in self-care, mobility and cognition, and communication Patient Condition: Good Hospital Course Patient was admitted for comprehensive interdisciplinary acute rehab and made excellent functional gains during the course of the stay. Patient progressed from an initial moderate to maximal assist for self-care mobility tasks and progressed to the point of standby assist for all areas of self-care and mobility including ambulating over 150 feet with the use of a front wheel walker. Patient's verbal communication improved significantly during the course of hospitalization patient was able to express basic needs by discharge. Patient had very supportive family who did receive caregiver training and for able to demonstrate safe carryover of technique. Patient is being discharged home with recognition of home health physical therapy occupational therapy and home health speech therapy follow-up. The discharge equipment recommendations include a front wheel walker bedside commode shower chair. Patient will follow up with mobile sales expert upon discharge Home Meds Active Scripts Metformin* (Glucophage*) 500 Mg Tab, 500 MG PO WITH BREAKFAST DINNE, #30 TAB Prov:THOMPSON,NAMAN V. WARD SECRETARY 01/01/17 Insulin Aspart* (Novolog Insulin Pen*) 100 Unit/Ml Soln, 0 UNIT SC WITH MEALS BEDTIME, #30 Prov:THOMPSON,NAMAN V. WARD SECRETARY 01/01/17 Insulin Glargine* (Lantus*) 100 Unit/Ml Soln, 12 UNIT SC DAILY@08, #30 Prov:THOMPSON,NAMAN V. WARD SECRETARY 01/01/17 Aspirin* (Aspirin* EC) 81 Mg Tablet.dr, 81 MG PO DAILY, #90 Take up to 90 days and thereafter continue Plavix ONLY Prov:THOMPSON,NAMAN V. WARD SECRETARY 01/01/17 Atorvastatin* (Atorvastatin*) 80 Mg Tablet, 80 MG PO DAILY@21, #30 TAB Prov:THOMPSON,NAMAN V. WARD SECRETARY 01/01/17 Heparin Sod (Porcine)* (Heparin*) 5,000 Unit/0.5 Ml Soln, 5000 UNIT SC BID, #30 Prov:THOMPSON,NAMAN V. WARD SECRETARY 01/01/17 Clopidogrel Bisulfate (Clopidogrel) 75 Mg Tablet, 75 MG PO DAILY, #30 TAB Prov:ANMAN THOMPSON NP 01/01/17 Primary Care Provider Care Physician No Primary Pending Labs Laboratory Tests Test 01/08/17 16:32 01/08/17 20:35 01/09/17 07:54 01/09/17 12:08 Bedside Glucose 119mg/dL (70-220) 118mg/dL (70-220) 111mg/dL (70-220) 93mg/dL (70-220) KRISTYN NORIEGA MD Jan 09, 2017 12:51
--- NOTE | 2017-01-09 14:00 | CONS ---
Date/Time of Note Date/Time of Note DATE: 01/09/17 TIME: 13:58 Assessment/Plan Assessment/Plan Chief Complaint/Hosp Course IMP: 1.CVA-Acute/aphasia 2.HTN 3.HL 4.DM 5. Bradycardia-intermittent with stable BP Recc: -S/P [place] with no definite findings of intra-cardiac source of embolus and no PFO or other inter-atrial septal defect -Continue plavix/asa -continue statin -PT/OT Problems: Consultation Date/Type/Reason Admit Date/Time Jan 01, 2017 at 18:30 Initial Consult Date 01/01/2017 Type of Consultation: cardiology Reason for Consultation bradycardia Referring Provider: KRISTYN NORIEGA MD Exam/Review of Systems Vital Signs Vitals Vital Signs Date Time Temp Pulse Resp B/P Pulse Ox O2 Delivery O2 Flow Rate FiO2 01/09/17 08:21 98.0 52 18 116/71 95 Intake and Output 01/08/17 01/08/17 01/09/17 15:00 23:00 07:00 Intake Total 450 ml 450 ml Output Total 400 ml Balance 450 ml 450 ml -400 ml Exam Review of Systems: CONSTITUTIONAL: No fevers, chills. PULMONARY: No sob CARDIOVASCULAR: No chest pain/palpitations GASTROINTESTINAL: No nausea/vomiting. GENITOURINARY: No hematuria/dysuria. MUSCULOSKELETAL: No myagias/arthalgias. PSYCHIATRIC: The patient denies depression. NEUROLOGIC: aphasic Constitutional: alert Psych: no complaints Head: normocephalic ENMT: mucosa pink and moist Neck: jvd (9 cm water), supple Respiratory: clear to auscultation Cardiovascular: regular rate and rhythm Gastrointestinal: non-tender, soft Musculoskeletal: muscle tone Extremities: edema (none) Neurological: other (aphasic) Results Results 24 hrs Laboratory Tests Test 01/08/17 16:32 01/08/17 20:35 01/09/17 07:54 01/09/17 12:08 Bedside Glucose 119 118 111 93 Medications Medications Current Medications Diagnostic Test (Pha) (Accu-Chek) 1 ea 02 XX Last administered on 01/09/17 02: 00; Admin Dose 1 EA; Start 01/02/17 at 02:00 Aspirin (Halfprin) 81 mg DAILY PO Last administered on 01/09/17 08:08; Admin Dose 81 MG; Start 01/02/17 at 09:00; Stop 03/26/17 at 08:59 Atorvastatin Calcium (Lipitor) 80 mg DAILY@21 PO Last administered on 01/08/17 20:14; Admin Dose 80 MG; Start 01/01/17 at 21:00 Clopidogrel Bisulfate (plaVIX) 75 mg DAILY PO Last administered on 01/09/17 08: 08; Admin Dose 75 MG; Start 01/02/17 at 09:00 Heparin Sodium (Porcine) (Heparin (5000 Units/0.5 ml)) 5,000 unit BID SC Last administered on 01/09/17 08:08; Admin Dose 5,000 UNIT; Start 01/01/17 at 21:00 Insulin Glargine (Lantus) 12 unit DAILY@08 SC Last administered on 01/09/17 08: 06; Admin Dose 12 UNIT; Start 01/02/17 at 08:00 Miscellaneous Information 1 ea NOTE XX ; Start 01/01/17 at 21:00 Glucose (Glutose) 15 gm Q15M PRN PO DECREASED GLUCOSE; Start 01/01/17 at 21:00 Glucose (Glutose) 22.5 gm Q15M PRN PO DECREASED GLUCOSE; Start 01/01/17 at 21: 00 Dextrose (D50w Syringe) 25 ml Q15M PRN IV DECREASED GLUCOSE; Start 01/01/17 at 21:00 Dextrose (D50w Syringe) 50 ml Q15M PRN IV DECREASED GLUCOSE; Start 01/01/17 at 21:00 Glucagon (Glucagen) 1 mg Q15M PRN IM DECREASED GLUCOSE; Start 01/01/17 at 21:00 Glucose (Glutose) 15 gm Q15M PRN BUCCAL DECREASED GLUCOSE; Start 01/01/17 at 21 :00 Docusate Sodium (Colace) 100 mg BID PO Last administered on 01/09/17 08:08; Admin Dose 100 MG; Start 01/02/17 at 09:00 Senna (Senokot) 1 tab HS PO Last administered on 01/08/17 20:14; Admin Dose 1 TAB; Start 01/02/17 at 21:00 Acetaminophen (Tylenol Tab) 650 mg Q4H PRN PO PAIN; Start 01/02/17 at 05:47 Magnesium Hydroxide (Milk Of Mag) 30 ml BID PRN PO CONSTIPATION Last administered on 01/08/17 06:39; Admin Dose 30 ML; Start 01/02/17 at 05:47 Famotidine (Pepcid) 20 mg BID PO Last administered on 01/09/17 08:08; Admin Dose 20 MG; Start 01/03/17 at 12:00 Lactulose (Enulose) 20 gm DAILY PRN PO CONSTIPATION; Start 01/03/17 at 15:00 MATTHIEU TAYLOR Jan 09, 2017 14:00
[2017-01-09 14:12] VITALS: BP 113/72; RESP 18
--- NOTE | 2017-01-09 14:31 | CONS ---
Date/Time of Note Date/Time of Note DATE: 01/09/17 TIME: 14:29 Assessment/Plan Assessment/Plan Chief Complaint/Hosp Course 1. Acute CVA with right sided weakness and expressive aphasia. With excellent improvement in symptoms. -Continue with ARU activities for functional regain. -Continue speech therapy to return to baseline. 2. Diabetes. A1c at 8.3. -Continue Accu-Cheks, ISS, Lantus and metformin. We will adjust if indicated. -Carbohydrate controlled, cardiac diet. 3. Hypercholesterolemia. -On statin 4.Essential HTN. Controlled. -We will monitor and intervene if indicated. 5. Debility secondary to #1. Improving. -Continue with physical therapy. DVT prophylaxis: Heparin DC planning likely for tomorrow. Case discussed with Dr. Manriquez Problems: Consultation Date/Type/Reason Admit Date/Time Jan 01, 2017 at 18:30 Type of Consultation: cardiology Referring Provider: KRISTYN NORIEGA MD 24 HR Interval Summary Free Text/Dictation No acute overnight episodes. Has been participating in rehab activities well. Exam/Review of Systems Vital Signs Vitals Vital Signs Date Time Temp Pulse Resp B/P Pulse Ox O2 Delivery O2 Flow Rate FiO2 01/09/17 14:12 98.0 53 18 113/72 97 Intake and Output 01/08/17 01/08/17 01/09/17 15:00 23:00 07:00 Intake Total 450 ml 450 ml Output Total 400 ml Balance 450 ml 450 ml -400 ml Exam General: Well developed,adequately built, not in any acute distress . HEENT: Normocephalic, Atraumatic, No laceration or hematoma; Eyes: PEERL, Conjunctiva clear, Anicteric sclera Neck: Supple without any lymphadenopathy, nontender, no JVD, no carotid bruits, trachea midline, no thyromegaly Cardiac: S1, S2 auscultated, regular rhythm and rate, no mumurs or gallop Pulmonary: Normal respiratory effort. Chest clear to auscultation bilaterally, no adventitious breath sounds GI: Abdomen normal to inspection. Soft, non tender, non- distended, no masses, no rebound tenderness or guarding. Bowel sounds active on all four quadrants Genitourinary: Deferred Extremities: With right-sided weakness-improving. Left/leg motor strength 5 out of 5. Right arm/leg 4/5. No cyanosis, clubbing, or edema. Pulses [2+] bilaterally. Neurologic: expressive aphasia-improving. Right facial weakness. Awake and alert. Skin: Clean,dry, and intact. No ecchymosis, no rashes, or lesions Results Results 24 hrs Laboratory Tests Test 01/08/17 16:32 01/08/17 20:35 01/09/17 07:54 01/09/17 12:08 Bedside Glucose 119 118 111 93 Medications Medications Current Medications Diagnostic Test (Pha) (Accu-Chek) 1 ea 02 XX Last administered on 01/09/17 02: 00; Admin Dose 1 EA; Start 01/02/17 at 02:00 Aspirin (Halfprin) 81 mg DAILY PO Last administered on 01/09/17 08:08; Admin Dose 81 MG; Start 01/02/17 at 09:00; Stop 03/26/17 at 08:59 Atorvastatin Calcium (Lipitor) 80 mg DAILY@21 PO Last administered on 01/08/17 20:14; Admin Dose 80 MG; Start 01/01/17 at 21:00 Clopidogrel Bisulfate (plaVIX) 75 mg DAILY PO Last administered on 01/09/17 08: 08; Admin Dose 75 MG; Start 01/02/17 at 09:00 Heparin Sodium (Porcine) (Heparin (5000 Units/0.5 ml)) 5,000 unit BID SC Last administered on 01/09/17 08:08; Admin Dose 5,000 UNIT; Start 01/01/17 at 21:00 Insulin Glargine (Lantus) 12 unit DAILY@08 SC Last administered on 01/09/17 08: 06; Admin Dose 12 UNIT; Start 01/02/17 at 08:00 Miscellaneous Information 1 ea NOTE XX ; Start 01/01/17 at 21:00 Glucose (Glutose) 15 gm Q15M PRN PO DECREASED GLUCOSE; Start 01/01/17 at 21:00 Glucose (Glutose) 22.5 gm Q15M PRN PO DECREASED GLUCOSE; Start 01/01/17 at 21: 00 Dextrose (D50w Syringe) 25 ml Q15M PRN IV DECREASED GLUCOSE; Start 01/01/17 at 21:00 Dextrose (D50w Syringe) 50 ml Q15M PRN IV DECREASED GLUCOSE; Start 01/01/17 at 21:00 Glucagon (Glucagen) 1 mg Q15M PRN IM DECREASED GLUCOSE; Start 01/01/17 at 21:00 Glucose (Glutose) 15 gm Q15M PRN BUCCAL DECREASED GLUCOSE; Start 01/01/17 at 21 :00 Docusate Sodium (Colace) 100 mg BID PO Last administered on 01/09/17 08:08; Admin Dose 100 MG; Start 01/02/17 at 09:00 Senna (Senokot) 1 tab HS PO Last administered on 01/08/17 20:14; Admin Dose 1 TAB; Start 01/02/17 at 21:00 Acetaminophen (Tylenol Tab) 650 mg Q4H PRN PO PAIN; Start 01/02/17 at 05:47 Magnesium Hydroxide (Milk Of Mag) 30 ml BID PRN PO CONSTIPATION Last administered on 01/08/17 06:39; Admin Dose 30 ML; Start 01/02/17 at 05:47 Famotidine (Pepcid) 20 mg BID PO Last administered on 01/09/17 08:08; Admin Dose 20 MG; Start 01/03/17 at 12:00 Lactulose (Enulose) 20 gm DAILY PRN PO CONSTIPATION; Start 01/03/17 at 15:00 NAMAN THOMPSON NP Jan 09, 2017 14:31
== END 2017-01-09 19:11 | disposition home health service (06) | DRG 57 ==
LOC: VRC 18:30
PROVIDERS: ADMIT Physical Medicine & Rehabilitation; ATTEND Internal Medicine Pulmonary Disease
DX: I69.951 Hemiplegia and hemiparesis following unspecified cerebrovascular disease affecting right dominant side (principal); R13.10 Dysphagia, unspecified; I10 Essential (primary) hypertension; I69.920 Aphasia following unspecified cerebrovascular disease; I69.991 Dysphagia following unspecified cerebrovascular disease; E11.9 Type 2 diabetes mellitus without complications; E78.00 Pure hypercholesterolemia, unspecified; R00.1 Bradycardia, unspecified; R53.81 Other malaise
CPT/HCPCS: 80053; 81003; 82962; 85025; 87081; 87086; 92507; 92523; 92610; 97110; 97112; 97116; 97150; 97163; 97167; 97530; 97535; 97542; A4310; J1644; J1815; L1932; L2820

== ENCOUNTER 2018-10-13 20:13 | Emergency (ER) | payer MEDICAID, OTHER ==
[~2018-10-13] VITALS: Ht 165.1 cm; Wt 81.2 kg
[~2018-10-13 20:13] MED LIST changes: -ASPI-664 PO; +ASPI-817 PO; +ATOR-2 PO; -ATOR80TA75 PO; -HEP5KI SC; +METF-849 PO; -METF500T4 PO; +[UNRECOGNIZED DRUG - CODE] SC
[2018-10-13 20:30] VITALS: Ht 165.1 cm; Wt 81.2 kg
[2018-10-13] MEDS ORDERED: BENZ-6 PO (23:30)
[2018-10-13] MEDS ORDERED: AZIT250T PO (23:30)
--- NOTE | 2018-10-13 23:36 | ERD ---
ER Documentation Chief Complaint Chief Complaint cough x 2 weeks HPI Patient is a 63-year-old male with past medical history of DM type II, CVA, who presents the ER for concerns of a dry cough x2 weeks. Patient states his cough is hacking in nature. Patient states initially he had "flulike" symptoms for 1 week which is now resolved and he only has a cough which is residual. Patient has no fevers. Patient has no chest pain or shortness of breath. Patient has no nausea, vomiting, abdominal pain or diarrhea. Patient does admit to a scratchy throat and occasional clear rhinorrhea. Patient has no patient's is a sick contact. No recent travel. Patient denies any hemoptysis. ROS All systems reviewed and are negative except as per history of present illness. Medications Home Meds Active Scripts Benzonatate* (Tessalon Perle*) 100 Mg Capsule, 100 MG PO Q8H PRN for COUGH, #20 CAP Prov:NO JACKSON PA-C 10/13/18 Azithromycin* (Zithromax*) 250 Mg Tablet, 250 MG PO .ZPACK DIRECTED, #6 TAB TAKE 500 MG (2 TABS) THE FIRST DAY THEN 250 MG (1 TAB) DAYS 2-5 Prov:NO JACKSON PA-C 10/13/18 Metformin* (Glucophage*) 500 Mg Tab, 500 MG PO WITH BREAKFAST DINNE, #30 TAB Prov:NAMAN THOMPSON NP 01/01/17 Insulin Aspart* (Novolog Insulin Pen*) 100 Unit/Ml Soln, 0 UNIT SC WITH MEALS BEDTIME, #30 Prov:NAMAN THOMPSON NP 01/01/17 Insulin Glargine* (Lantus*) 100 Unit/Ml Soln, 12 UNIT SC DAILY@08, #30 Prov:NAMAN THOMPSON NP 01/01/17 Aspirin* (Aspirin* EC) 81 Mg Tablet.dr, 81 MG PO DAILY, #90 Take up to 90 days and thereafter continue Plavix ONLY Prov:NAMAN THOMPSON NP 01/01/17 Atorvastatin* (Atorvastatin*) 80 Mg Tablet, 80 MG PO DAILY@21, #30 TAB Prov:NAMAN THOMPSON NP 01/01/17 Heparin Sod (Porcine) (Heparin) 5,000 Unit/0.5 Ml Soln, 5000 UNIT SC BID, #30 Prov:THOMPSONSANTYNAMAN V. CONCIERGE RECEPTIONIST 01/01/17 Clopidogrel Bisulfate (Clopidogrel) 75 Mg Tablet, 75 MG PO DAILY, #30 TAB Prov:THOMPSONVALERIEA V. CONCIERGE RECEPTIONIST 01/01/17 Allergies Allergies: Coded Allergies: No Known Drug Allergies (Verified Allergy, Unknown, 12/25/16) PMhx/Soc Medical and Surgical Hx: pt denies Surgical Hx Anesthesia Reaction: No (UNKNOWN) Hx Neurological Disorder: Yes (ACUTE STROKE) Hx Respiratory Disorders: No Hx Cardiac Disorders: Yes (HTN; HYPERCHOLESTEROLEMIA) Hx Psychiatric Problems: No Hx Alcohol Use: No Hx Substance Use: No Hx Tobacco Use: No Smoking Status: Never smoker FmHx Family History: No diabetes Physical Exam Vitals Vital Signs Date Temp Pulse Resp B/P (MAP) Pulse Ox O2 O2 Flow FiO2 Time Delivery Rate 10/13/18 99.0 81 18 166/94 97 20:30 (118) Physical Exam GENERAL: Well-developed, well-nourished male. Appears in no acute distress. HEAD: Normocephalic, atraumatic. No deformities or ecchymosis. EYE: Pupils equal, round, and reactive to light. EOMs intact. No conjunctival erythema. No eye discharge. ENT: External ear without any masses or tenderness. Auditory canals clear bilaterally. TM visualized bilaterally, non-erythematous, non-bulging. Nasal mucosa pink with no discharge. Oropharynx is pink without any tonsillar erythema or exudates. No uvula deviation. No kissing tonsils. NECK: Supple. No meningismus. Normal ROM of the neck. LUNG: Clear to auscultation bilaterally. No rhonchi, wheezing, rales or coarse breath sounds. HEART: Regular rate and rhythm. No murmurs, rubs or gallops. ABDOMEN: Soft, nontender, and nondistended. Positive bowel sounds in all four quadrants. No rebound tenderness, no guarding. (-) McBurney's point tenderness. No CVA tenderness. EXTREMITIES: Equal pulses bilaterally. No peripheral clubbing, cyanosis or edema. No unilateral leg swelling. NEUROLOGIC: Alert and oriented to person, place and time. Moving all four extremities. 5/5 strength in all extremities. Normal speech. Steady gait. No facial asymmetry. Equal physical medicine specialist strength bilaterally. Equal smile. SKIN: Normal color. Warm and dry. No rashes or lesions. Procedures/MDM ED COURSE: The patient was stable throughout ED course. I kept the patient and/or family informed of laboratory and diagnostic imaging results throughout the ED course. DIAGNOSTIC IMAGING: Read by radiologist. Patient: PATRIZIA GAN : 1955 Age: 63 Sex: M MR #: [id number] DOS: 10/13/18 214 Ordering MD: NO JACKSON PA-C Location: [facility] Room/Bed: PROCEDURE: XR Chest. CLINICAL INDICATION: Cough. TECHNIQUE: Single frontal chest x-ray. COMPARISON: Chest CT 12/28/2016. FINDINGS: The cardiomediastinal silhouette is unremarkable. No pneumothorax, pleural effusion or consolidation is seen. There are multilevel mild degenerative changes of thoracic spine with decreased disk spaces and osteophytosis. IMPRESSION: 1. No acute cardiopulmonary abnormality. RPTAT: HFN .Aleta Maier MD, MD Date Time Electronically viewed and signed by .Aleta Maier MD, MD on 10/13/2018 23:20 .N/ CC: NO JACKSON PA-C [id number] MEDICAL DECISION MAKING: This is a 63-year-old male with past medical history of DM type II, CVA, presents the ER for concerns of dry cough x2 weeks. Patient was afebrile. Patient was not hypoxic. Patient denied recent travel. Cardiac exam was normal. Lung exam was normal . Chest x-ray was obtained see formal report above. Given these findings, the patient's presentation is most consistent with acute bronchitis. I have a much lower clinical concern for acute coronary syndrome, pneumothorax, CHF exasperation, pneumonia, TB, influenza, pertussis. Patient was nontoxic, [id number] prior to discharge. PRESCRIPTIONS: Azithromycin, Tessalon Perles DISCHARGE: At this time, patient is stable for discharge and outpatient management. I have instructed the patient to follow-up with his/her primary care physician in 1-2 days. If symptoms persist, patient may need to see a specialist for further examinations and testing. I have instructed the patient to promptly return to the ER at any time for any new or worsening symptoms including increased increased pain, fever, nausea, vomiting, numbness, shortness of breath, weakness, ongoing wheezing, retractions or LOC. The patient and/or family expressed understanding of and agreement with this plan. All questions were answered. Home care instructions were provided. Patients blood pressure was elevated (>120/80) but appears stable without evidence of hypertensive emergency, hypertensive urgency or end-organ failure. I had discussion with the patient about the risks of hypertension. I have advised the patient to follow up with his/her primary care physician for outpatient monitoring and treatment for hypertension in 2-3 days. I have instructed the patient to return to the ER for any new or worsening symptoms including chest pain, shortness of breath, headache, blurred vision, confusion, nausea, vomiting or LOC. Disclaimer: Inadvertent spelling and grammatical errors are likely due to EHR/dictation software use and do not reflect on the overall quality of patient care. Also, please note that the electronic time recorded on this note does not necessarily reflect the actual time of the patient encounter. Departure Diagnosis: Primary Impression: Bronchitis Condition: Fair Patient Instructions: Bronchitis, Antiobiotic Treatment (Adult) Additional Instructions: Call your primary care doctor TOMORROW for an appointment during the next 1-2 days.See the doctor sooner or return here if your condition worsens before your appointment time. NO JACKSON PA-C October 13, 2018 23:36
[2018-10-13 23:50] VITALS: BP 154/75; PULSE 88; RESP 20
== END 2018-10-13 23:53 | disposition home or self-care (01) ==
LOC: FTE 20:13
DX: J40 Bronchitis, not specified as acute or chronic (principal); E11.9 Type 2 diabetes mellitus without complications; Z79.01 Long term (current) use of anticoagulants; Z79.82 Long term (current) use of aspirin; Z79.4 Long term (current) use of insulin; Z86.73 Personal history of transient ischemic attack (TIA), and cerebral infarction without residual deficits
CPT/HCPCS: 71045; Z7502